=== PATIENT | female | born 1970 | race Caucasian/White ===

== ENCOUNTER 2020-06-15 11:00 | Inpatient (IN) | payer MEDICAID, OTHER ==
[~2020-06-15] VITALS: Ht 165.1 cm; Wt 82.1 kg
[2020-06-15] VITALS (17 sets, daily range): BP systolic 94–156; BP diastolic 48–80
[~2020-06-15 11:00] MED LIST: ALPR1TAB6 PO; ATOR40TA PO; HYDR-2769 PO; METH10TA2 PO
[2020-06-15] MEDS ORDERED: IV NORMAL SALINE 1000ML BAG 1,000 ML IV SCH (11:30)
[2020-06-15] MEDS ORDERED: ONDANSETRON PF 4 MG/2 ML VIAL. IVP ONE (11:30)
[2020-06-15] MEDS ORDERED: fentaNYL PF VIAL 100 MCG/2 ML VIAL IVP ONE ×2 (11:30→13:15)
--- NOTE | 2020-06-15 11:54 | PHYS DOC ---
Past Medical History Past Medical History: Other Additional Past Medical Histor: CHRONIC BACK PAIN (DIMITRI TORREZJanusz James APPLICATION PACKAGER) Past Surgical History: , Hysterectomy, Other Additional Past Surgical Histo: BLADDER LIFT (DIMITRI TORREZJanusz James APPLICATION PACKAGER) Smoking Status: Current Every Day Smoker Alcohol Use: None Drug Use: None (ELAINE TORREZ Erika APPLICATION PACKAGER) General Adult EDM: Chief Complaint: DEHYDRATION HPI: HPI: Patient is a 49 year old female who presents with 2 days of mottling to bilateral knees, upper and inner thigh redness that is tender, abdominal redness that is tender, redness to the right breast with what may be a abscess with cellulitis, shortness of breath, generalized pain, abdominal pain, vomiting. She rates her pain aching 10 out of 10. Patient's daughter brought her here but then has appeared to leave. Patient is refusing a IV in the neck and refusing a Covid test. Patient's hands and feet are cold. Her hands appear to be dirty. I asked her if she was homeless and she states no she states that she lives with one of her daughters. Patient denies fever, diarrhea, chest pain, syncope, back pain, cough, nasal congestion, headache, vision change, focal weakness. 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 She states she takes a baby aspirin a day. Patient is very tearful and moaning in the room. She is yelling for her daughter. (DIMITRI TORREZJanusz James APPLICATION PACKAGER) Review of Systems: Review of Systems: Constitutional: Denies fever or chills. [] Eyes: Denies change in visual acuity. [] HENT: Denies nasal congestion or sore throat. [] Respiratory: Denies cough. + shortness of breath. [] Cardiovascular: Denies chest pain. + edema. [] GI: +Generalized abdominal pain, +nausea, +vomiting, denies bloody stools or diarrhea. [] : Denies dysuria. [] Musculoskeletal: Denies back pain or joint pain. +Generalized[] Integument: Denies rash. +Abdomen cellulitis, +mottling [] Neurologic: Denies headache, focal weakness or sensory changes. +Dizziness [] Endocrine: Denies polyuria or polydipsia. [] Lymphatic: Denies swollen glands. [] Psychiatric: Denies depression or anxiety. [] (ELAINE TORREZ APRN) Heart Score: Risk Factors: Risk Factors: DM, Current or recent (<one month) smoker, HTN, HLP, family history of CAD, obesity. Risk Scores: Score 0 - 3: 2.5% MACE over next 6 weeks - Discharge Home Score 4 - 6: 20.3% MACE over next 6 weeks - Admit for Clinical Observation Score 7 - 10: 72.7% MACE over next 6 weeks - Early Invasive Strategies (ELAINE TORREZ APRN) Allergies: Allergies: Allergies Coded Allergies Type Severity Reaction Last Updated Verified Penicillins Allergy Intermediate rash 02/06/14 No (ELAINE TORREZ APRN) Physical Exam: PE: Constitutional: Well developed, well nourished, no acute distress, non-toxic appearance. [] HENT: Normocephalic, atraumatic, bilateral external ears normal, oropharynx moist, no oral exudates, nose normal. [] Eyes: PERRLA, EOMI, conjunctiva normal, no discharge. [] Neck: Normal range of motion, no tenderness, supple, no stridor. [] Cardiovascular:Heart rate tachy regular rhythm, no murmur [] Lungs & Thorax: Bilateral upper breath sounds clear and lower diminished to auscultation [] Abdomen: Bowel sounds normal, soft, generalized tenderness, no masses, no pulsatile masses. [] Skin: Warm, dry, Right breast, generalized abdomen erythema, no rash. Mottled knees bilaterally. [] Back: No tenderness, no CVA tenderness. [] Extremities: generalised tenderness, fingers, feet cyanosis, no clubbing, ROM intact, bilateral lower 2+ edema. [] Neurologic: Alert and oriented X 3, normal motor function, normal sensory function, no focal deficits noted. [] Psychologic: Affect normal, judgement normal, mood normal. [] (ELAINE TORREZ APRN) EKG: EK and read by Dr Dao as sinus tachycardia and no STEMI[] (ELAINE TORREZ APRN) Radiology/Procedures: Radiology/Procedures: [] Impression: [facility] [address] [place] [address] IMAGING REPORT Signed PATIENT: BRAXTON ANTHONY GACCOUNT: [id number] : 1970 LOCATION: ER AGE: 49 SEX: F EXAM STATUS: REG ER ORD. PHYSICIAN: ELAINE TORREZ APRN REASON: pain, soa PROCEDURE: PORTABLE CHEST 1V XR CHEST 1V History: Reason: pain, soa / Spl. Instructions: / History: Comparison: February 06, 2014 Findings: Enlarged cardiac size, increased compared to 2013. Small left pleural effusion. Ill-defined mid and bibasilar opacities. No pneumothorax. Left-sided ICD noted. Impression: 1. Ill-defined bilateral opacities, may represent pulmonary edema or infection including viral pneumonia. 2. Small left pleural effusion. 3. Enlarged cardiac size, may indicate cardiomegaly and/or pericardial effusion. Electronically signed by: Indra Wheat DO (06/15/2020 1:48 PM) [id number] DICTATED and SIGNED BY: INDRA WHEAT DO DATE: 06/15/20 [id number] [address] [address] IMAGING REPORT Signed PATIENT: BRAXTON ANTHONYCOUNT: [id number] : 1970 LOCATION: ER AGE: 49 SEX: F EXAM STATUS: REG ER ORD. PHYSICIAN: ELAINE TORREZ APRN REASON: vomiting PROCEDURE: CT ABDOMEN PELVIS WO CONTRAST INDICATION: Reason: vomiting / Spl. Instructions: WO CONTRAST PER LORE LOPEZ DUE TO GFR 43 / History: . COMPARISON: None. TECHNIQUE: Axial CT images obtained through the abdomen and pelvis without contrast. One or more of the following individualized dose reduction techniques were utilized for this examination: 1. Automated exposure control; 2. Adjustment of the mA and/or kV according to patient size; 3. Use of iterative reconstruction technique. FINDINGS: Patchy opacities at the partially visualized lung bases. There are some groundglass opacities at the lung bases. Heart is enlarged. There is small pericardial effusion. Trace pleural effusions. There is a catheter within the right common iliac vein. Edema throughout the soft tissues. No intrahepatic bile duct dilation. Postcholecystectomy changes. Limited evaluation of pancreas without contrast. Low-density thickening of the left adrenal gland measuring up to about 25 mm. Causes such as hyperplasia or adenoma could have this appearance. No left-sided hydronephrosis. No right-sided hydronephrosis. The urinary bladder is largely decompressed. There is distention throughout the colon. Colon has a tortuous appearance. Edema throughout soft tissues. Degenerative changes throughout the spine with multilevel central canal and neural foraminal stenosis. IMPRESSION: * There is some dilatation of the colon seen. Would correlate with symptoms to ensure that this is not pathologic in nature from causes such as colonic ileus. * Diffuse edema to the soft tissues. * At the lung bases there is patchy opacity seen. Would correlate with symptoms given that both causes such as pulmonary edema as well as infection could have this appearance including from atypical or viral organisms as well as bacterial. * Enlarged heart. Electronically signed by: Isac Urbina MD (06/15/2020 2:34 PM) [id number] DICTATED and SIGNED BY: ISAC URBINA MD DATE: 06/15/20 [id number] (ELAINE TORREZ APRN) Radiology/Procedures: Central Venous Line Placement: Indication: Vascular access Consent: The patient's daughter provided consent for this procedure. Procedure: The patient was positioned appropriately and the skin over the right femoral vein area was prepped and draped in a sterile fashion. Local anesthesia was used. Ultrasound guidance utilized. A large bore needle was used to identify the vein. A guide wire was then inserted into the vein through the needle. A triple lumen catheter was then inserted into the vessel over the guide wire using the Seldinger technique. All ports showed good, free flowing blood return and were flushed with saline solution. The catheter was then securely fastened to the skin with sutures and covered with a sterile dressing. The patient tolerated the procedure well. Complications: none. [] Intubation Procedure: Indication: Respiratory failure Consent: Unable to give consent due to emergent nature. Medications Used: see nursing note Procedure: The patient was placed in the appropriate position. Intubation was performed by this physician, using Glidescope, cord visual, ET # 7.5. ET tube secured at 22 by the lip. Initial confirmation of placement included bilateral breath sounds, tube fogging, adequate chest rise, adequate pulse oximetry reading. A chest x-ray to verify correct placement of the tube showed appropriate tube position. The patient tolerated the procedure well. Complications: none. (ADRIAN DAO DO) Course & Med Decision Making: Course & Med Decision Making Pertinent Labs and Imaging studies reviewed. (See chart for details) COVID-19 CRITERIA: The patient was evaluated during the global COVID-19 pandemic, and that diagnosis was suspected/considered upon their initial presentation. Their evaluation, treatment and testing was consistent with current guidelines for patients who present with complaints or symptoms that may be related to COVID-19. I have spoken to the patient's daughter who states that she has been in retirement for the last 4 years so she does not know very much about what is going on with her mother. She states that she knows that she has a bad liver in her kidney function is not good. She states the patient was on hospice a year ago for CHF but has not been on hospice for a year. She states that the patient was a DNR but she does not want the patient to be a DNR. I have asked the patient and the patient states that she wants to be a full code. Patient's lactic acid is 4.7. Bands present. Dr. Dao is going into the room to put in a central line. I have ordered Levophed. Patient is about to start her second liter of fluids. I have ordered Levaquin. Patient is allergic to penicillins. Patient's heart rate remains in the 120s. Her oxygenation saturation is not picking up as her fingers are cyanotic. Patient is on 2 L of oxygen. After getting ABG results patient is intubated. Patient admitted to Dr. Vila. I spoken to Dr. Vila who states to call anesthesia to get a arterial line so we can get a accurate pressure. See HPI. Patient is very anxious and agitated. Patient's fingers and her lips appear to be a purple color. Lungs are clear in upper lobes but diminished in lower lobes. Abdomen is soft but very tender. Patient is yellow in color. Patient has bilateral lower edema 2+. Patient also has blueness to the bottom of her feet. Patient has a egg sized lump to the right breast that is soft. Patient is tender all over generalized. Patient is unable to get out of the wheelchair on her own. Alert and oriented x4. Speaks in full complete sentences. Patient is hypotensive and tachycardic. Dr Dao has been into see the patient. Chest xray:Impression: 1. Ill-defined bilateral opacities, may represent pulmonary edema or infection including viral pneumonia. 2. Small left pleural effusion. 3. Enlarged cardiac size, may indicate cardiomegaly and/or pericardial effusion. IMPRESSION: * There is some dilatation of the colon seen. Would correlate with symptoms to ensure that this is not pathologic in nature from causes such as colonic ileus. * Diffuse edema to the soft tissues. * At the lung bases there is patchy opacity seen. Would correlate with symptoms given that both causes such as pulmonary edema as well as infection could have this appearance including from atypical or viral organisms as well as bacterial. * Enlarged heart. Electronically signed by: Isac Urbina MD (06/15/2020 2:34 PM) [id number] [] (ELAINE TORREZ APRN) Course & Med Decision Making Critical care time was [45] minutes which includes time at bedside, spent in discussion of patient's care with specialist and/or family members, with interpretation of laboratory and/or radiological studies and is exclusive of procedures. (ADRIAN DAO DO) Dragon Disclaimer: Dragcorey Disclaimer: This electronic medical record was generated, in whole or in part, using a voice recognition dictation system. (LEAINE TORREZ APRN) Departure Departure Impression: Primary Impression: Pneumonia Qualified Codes: J18.9 - Pneumonia, unspecified organism Additional Impressions: Person under investigation for COVID-19 Ileus Severe sepsis UTI (urinary tract infection) Disposition: 09 ADMITTED INPT THIS HOSP Admitting Physician: PARK (ELAINE TORREZ APRN) Condition: CRITICAL Referrals: NO PCP (PCP) ELAINE TORREZ APRN Jun 15, 2020 11:54 ADRIAN DAO DO Jun 15, 2020 14:54
[2020-06-15 11:55] LABS: BASO % 0 % (0-3); EOS # 0.2 x10^3/uL (0.0-0.7); EOS % 2 % (0-3); HEMATOCRIT 46.8 % (36.0-47.0); HEMOGLOBIN 14.9 g/dL (12.0-15.5); LYMPH # 0.2 x10^3/uL (1.0-4.8); LYMPH % 2 % (24-48); MEAN CORPUSCULAR HEMOGLOBIN 30 pg (25-35); MEAN CORPUSCULAR HGB CONC 32 g/dL (31-37); MEAN CORPUSCULAR VOLUME 94 fL (79-100); MONO # 0.2 x10^3/uL (0.0-1.1); MONO % 2 % (0-9); NEUT # 10.6 x10^3/uL (1.8-7.7); NEUT % 95 % (31-73); PLATELET COUNT 203 x10^3/uL (140-400); RED CELL DISTRIBUTION WIDTH 17.4 % (11.5-14.5); WHITE BLOOD COUNT 11.2 x10^3/uL (4.0-11.0)
[2020-06-15 12:03] LABS: CALCIUM 8.2 mg/dL (8.5-10.1); CREATININE 1.3 mg/dL (0.6-1.0); GFR 43.7; POTASSIUM 3.7 mmol/L (3.5-5.1)
[2020-06-15 12:09] LABS: ALBUMIN/GLOBULIN RATIO 0.4 (1.0-1.7); MAGNESIUM 1.8 mg/dL (1.8-2.4); TOTAL BILIRUBIN 4.4 mg/dL (0.2-1.0); TOTAL PROTEIN 6.9 g/dL (6.4-8.2)
[2020-06-15 12:10] LABS: PROTHROMBIN TIME PATIENT 24.5 SEC (11.7-14.0)
[2020-06-15 12:15] LABS: BILIRUBIN,URINE MODERATE (NEG); CLARITY,URINE CLOUDY; COLOR,URINE ORANGE; NITRITE,URINE NEGATIVE (NEG); PH,URINE 5.5 (<5.0-8.0); PROTEIN,URINE 100 mg/dL (NEG-TRACE)
[2020-06-15 12:29] LABS: RBC,URINE FIELD OBSCURED /HPF (0-2); WBC,URINE 20-40 /HPF (0-4)
[2020-06-15 12:30] LABS: BACTERIA,URINE MANY /HPF (0-FEW); HYALINE CASTS, URINE MANY /HPF
[2020-06-15] MEDS ORDERED: NOREPINEPHRINE VIAL 8 MG in IV DEXTROSE 5% 250 ML IV ONE ×2 (12:30→16:00)
[2020-06-15] MEDS ORDERED: IV NORMAL SALINE 1000ML BAG 1,000 ML IV ONE (12:30)
[2020-06-15 12:49] LABS: % BANDS 40 % (0-9); % LYMPHS 5 % (24-48); % SEGS 55 % (35-66)
[2020-06-15 12:50] LABS: PLT ESTIMATE ADEQUATE (ADEQUATE); POLYCHROMASIA PRESENT
[2020-06-15] MEDS ORDERED: LIDOCAINE 1% Multi-Dose 20 ML VIAL. INJ ONE (13:00)
[2020-06-15 13:50] LABS: BASE EXCESS COOX -11 mmol/L (-3-3); HCO3 COOX 19 mmol/L (21-28); METHEMOGLOBIN 0.3 % (0.0-1.9); OXYHEMOGLOBIN 84.2 %; PCO2 COOX 55 mmHg (35-46); PO2 COOX 64 mmHg (75-108); SAT O2 COOX 85 % (92-99)
--- NOTE | 2020-06-15 13:50 | RAD ---
XR CHEST 1V History: Reason: pain, soa / Spl. Instructions: / History: Comparison: February 06, 2014 Findings: Enlarged cardiac size, increased compared to 2013. Small left pleural effusion. Ill-defined mid and b ibasilar opacities. No pneumothorax. Left-sided ICD noted. Impression: 1. Ill-defined bilateral opacities, may represent pulmonary edema or infection including viral pneum onia. 2. Small left pleural effusion. 3. Enlarged cardiac size, may indicate cardiomegaly and/or pericardial effusion. Electronically signed by: Indra Wheat DO (06/15/2020 1:48 PM) [id number]
[2020-06-15] MEDS ORDERED: ETOMIDATE 20 MG/10 ML VIAL. IV ONE ×2 (14:36→17:15)
[2020-06-15] MEDS ORDERED: SUCCINYLCHOLINE 200 MG/10 ML VIAL. ONE (14:36)
--- NOTE | 2020-06-15 14:36 | RAD ---
INDICATION: Reason: vomiting / Spl. Instructions: WO CONTRAST PER [employer]AF[employer] DIRECTOR STRATEGIC ACCOUNT MANAGEMENT DUE TO GFR 43 / History: . COMPARISON: None. TECHNIQUE: Axial CT images obtained through the abdomen and pelvis without contrast. One or more of the following individualized dose reduction techniques were utilized for this examinat ion: 1. Automated exposure control; 2. Adjustment of the mA and/or kV according to patient size; 3 . Use of iterative reconstruction technique. FINDINGS: Patchy opacities at the partially visualized lung bases. There are some groundglass opacities at the lung bases. Heart is enlarged. There is small pericardial effusion. Trace pleural effusions. There is a catheter within the right common iliac vein. Edema throughout the soft tissues. No intrahepatic bile duct dilation. Postcholecystectomy changes. Limited evaluation of pancreas without contrast. Low-density thickening of the left adrenal gland measuring up to about 25 mm. Causes such as hyperpla doretha or adenoma could have this appearance. No left-sided hydronephrosis. No right-sided hydronephrosis. The urinary bladder is largely decompressed. There is distention throughout the colon. Colon has a tortuous appearance. Edema throughout soft tissues. Degenerative changes throughout the spine with multilevel central canal and neural foraminal stenosis . IMPRESSION: * There is some dilatation of the colon seen. Would correlate with symptoms to ensure that this is n ot pathologic in nature from causes such as colonic ileus. * Diffuse edema to the soft tissues. * At the lung bases there is patchy opacity seen. Would correlate with symptoms given that both caus es such as pulmonary edema as well as infection could have this appearance including from atypical or viral organisms as well as bacterial. * Enlarged heart. Electronically signed by: Jose Alberto Gonzalez MD (06/15/2020 2:34 PM) [id number]
--- NOTE | 2020-06-15 14:57 | PDOC1 ---
History and Physical Date of Admission Date of Admission DATE: 06/15/20 TIME: 15:01 Identification/Chief Complaint Chief Complaint Shortness of breath Source Source: Caregiver, Chart review History of Present Illness History of Present Illness Ms Sheth is a 49 year old female w/ PMHx CVA (left-sided residual deficits), chronic back pain, HTN, systolic CHF s/p AICD placement, cirrhosis who presents via private vehicle with her daughter with 2 days of mottling to bilateral knees, upper and inner thigh as well as nausea and vomiting, fatigue, and lethargy redness. She was also noted with rash on her abdomen and under right breast. She rated her pain 10 out of 10, was in significant respiratory distress while initial ED H&P was being taken. Patient told ED she lives with one of her daughters, but not the daughter who brought her here. She also noted that a year ago she was on hospice for her CHF but after AICD placement and improved and has since been off hospice. She follows with [facility]. Chest radiograph with bilateral opacities and left-sided AICD noted. CT abdomen with dilatation of the colon, diffuse edema to the soft tissues, cardiomegaly and at the lung bases there is patchy opacity seen. EKG sinus tachycardia with incomplete left bundle branch block right axis deviation Initial vital signs temperature 97.5 F heart rate 122 bpm blood pressure 90/64 respiratory rate 27. She continued to tire out throughout interview and had worsening confusion. An ABG was performed showing pH 7.15 PCO2 55 and PaO2 of 64 due to her progressive respiratory distress decision to intubate after informed consent from patient and daughter. Right femoral central line placed emergently. WBC 11.2, Hb 14.9, platelets 203, NA 135, K3.7, BUN 36, CR 1.3, glucose 60 bilirubin 4.4, AST 220, ALT 131, alk phos 412, albumin 2, lipase 14, troponin 0, rapid COVID-19 negative, urinalysis with moderate blood. Admitted to ICU for further care. Past Medical History Cardiovascular: CHF, HTN CENTRAL NERVOUS SYSTEM: CVA Past Surgical History Past Surgical History: Pacemaker, Cholecystectomy, Family History Family History: Family History Unknown Social History Smoke: 1 pack per day ALCOHOL: none Drugs: None Current Problem List Problem List Problems Medical Problems: (1) Ileus Status: Acute (2) Person under investigation for COVID-19 Status: Acute (3) Pneumonia Status: Acute (4) Sepsis Status: Acute (5) Severe sepsis Status: Acute (6) UTI (urinary tract infection) Status: Acute Current Medications Current Medications Current Medications Sodium Chloride 1,000 ml @ 1,000 mls/hr Q1H IV Last administered on 06/15/20at 12:39; Start 06/15/20 at 11:30; Stop 06/15/20 at 12:29; Status DC Fentanyl Citrate (Fentanyl 2ml Vial) 50 mcg 1X ONCE IVP Last administered on 06/15/20at 12:37; Start 06/15/20 at 11:30; Stop 06/15/20 at 11:35; Status DC Ondansetron HCl (Zofran) 4 mg 1X ONCE IVP Last administered on 06/15/20at 12:37; Start 06/15/20 at 11:30; Stop 06/15/20 at 11:35; Status DC Norepinephrine Bitartrate 8 mg/ Dextrose 258 ml @ 13.545 mls/ hr 1X ONCE IV Last administered on 06/15/20at 12:41; Start 06/15/20 at 12:30; Stop 06/16/20 at 07:32 Levofloxacin/ Dextrose 150 ml @ 100 mls/hr 1X ONCE IV Last administered on 06/15/20at 13:23; Start 06/15/20 at 12:30; Stop 06/15/20 at 13:59; Status DC Sodium Chloride 1,000 ml @ 1,000 mls/hr 1X ONCE IV Last administered on 06/15/20at 12:39; Start 06/15/20 at 12:30; Stop 06/15/20 at 13:29; Status DC Lidocaine HCl (Lidocaine 1% 20ml Vial) 20 ml 1X ONCE INJ ; Start 06/15/20 at 13:00; Stop 06/15/20 at 13:01; Status DC Fentanyl Citrate (Fentanyl 2ml Vial) 50 mcg 1X ONCE IVP Last administered on 06/15/20at 13:15; Start 06/15/20 at 13:15; Stop 06/15/20 at 14:01; Status DC Etomidate (Amidate) 20 mg STK-MED ONCE IV ; Start 06/15/20 at 14:36; Stop 06/15/20 at 14:36; Status DC Succinylcholine Chloride (Anectine) 200 mg STK-MED ONCE .ROUTE ; Start 06/15/20 at 14:36; Stop 06/15/20 at 14:36; Status DC Active Scripts Active Reported Hydrocodone-Apap 10-325 (Hydrocodone Bit/Acetaminophen) 1 Each Tablet 3 Tab PO Q3-4HRS PRN Alprazolam 1 Mg Tablet 1 Tab PO BID Methadone Hcl 10 Mg Tablet 10 Mg PO PRN PRN Lipitor (Atorvastatin Calcium) 40 Mg Tablet 1 Tab PO QHS Allergies Allergies: Coded Allergies: Penicillins (Unverified Allergy, Intermediate, rash, 02/06/14) ROS Review of System Unable to obtain, patient intubated Physical Exam General: moderate distress HEENT: Atraumatic, PERRLA, EOMI, Mucous membr. moist/pink Lungs: Other (Bibasilar crackles) Heart: S1S2, RRR, no thrills, no rubs, no gallops, no murmurs Abdomen: Normal bowel sounds, Other (Positive fluid wave, ecchmoses) Rectal Exam: other (Gluteal abscess) Extremities: Other Skin: Other (mottling on hands and feet bilaterally. Bilateral breasts red, swollen) Neuro: Normal tone, Cranial nerves 3-12 NL Vitals Vitals Vital Signs Date Time Temp Pulse Resp B/P (MAP) Pulse Ox O2 Delivery O2 Flow Rate FiO2 06/15/20 13:45 138 18 06/15/20 13:15 97 Room Air 06/15/20 11:00 97.5 90/64 (73) 97.5 Labs Labs Laboratory Tests Test 06/15/20 11:40 06/15/20 12:00 06/15/20 12:23 06/15/20 13:40 White Blood Count 11.2 x10^3/uL (4.0-11.0) Red Blood Count 5.00 x10^6/uL (3.50-5.40) Hemoglobin 14.9 g/dL (12.0-15.5) Hematocrit 46.8 % (36.0-47.0) Mean Corpuscular Volume 94 fL (79-100) Mean Corpuscular Hemoglobin 30 pg (25-35) Mean Corpuscular Hemoglobin Concent 32 g/dL (31-37) Red Cell Distribution Width 17.4 % (11.5-14.5) Platelet Count 203 x10^3/uL (140-400) Neutrophils (%) (Auto) 95 % (31-73) Lymphocytes (%) (Auto) 2 % (24-48) Monocytes (%) (Auto) 2 % (0-9) Eosinophils (%) (Auto) 2 % (0-3) Basophils (%) (Auto) 0 % (0-3) Neutrophils # (Auto) 10.6 x10^3/uL (1.8-7.7) Lymphocytes # (Auto) 0.2 x10^3/uL (1.0-4.8) Monocytes # (Auto) 0.2 x10^3/uL (0.0-1.1) Eosinophils # (Auto) 0.2 x10^3/uL (0.0-0.7) Basophils # (Auto) 0.0 x10^3/uL (0.0-0.2) Segmented Neutrophils % 55 % (35-66) Band Neutrophils % 40 % (0-9) Lymphocytes % 5 % (24-48) Platelet Estimate Adequate (ADEQUATE) Giant Platelets Present Polychromasia Present Prothrombin Time 24.5 SEC (11.7-14.0) Prothromb Time International Ratio 2.2 (0.8-1.1) Sodium Level 135 mmol/L (136-145) Potassium Level 3.7 mmol/L (3.5-5.1) Chloride Level 97 mmol/L (98-107) Carbon Dioxide Level 24 mmol/L (21-32) Anion Gap 14 (6-14) Blood Urea Nitrogen 36 mg/dL (7-20) Creatinine 1.3 mg/dL (0.6-1.0) Estimated GFR (Cockcroft-Gault) 43.7 BUN/Creatinine Ratio 28 (6-20) Glucose Level 60 mg/dL (70-99) Lactic Acid Level 4.7 mmol/L (0.4-2.0) Calcium Level 8.2 mg/dL (8.5-10.1) Magnesium Level 1.8 mg/dL (1.8-2.4) Total Bilirubin 4.4 mg/dL (0.2-1.0) Aspartate Amino Transf (AST/SGOT) 220 U/L (15-37) Alanine Aminotransferase (ALT/SGPT) 131 U/L (14-59) Alkaline Phosphatase 412 U/L (46-116) Ammonia < 10 mcmol/L (11-34) Troponin I Quantitative < 0.017 ng/mL (0.000-0.055) Total Protein 6.9 g/dL (6.4-8.2) Albumin 2.0 g/dL (3.4-5.0) Albumin/Globulin Ratio 0.4 (1.0-1.7) Lipase 14 U/L (73-393) Urine Collection Type Unknown Urine Color [place] Urine Clarity Cloudy Urine pH 5.5 (<5.0-8.0) Urine Specific [place] 1.025 (1.000-1.030) Urine Protein 100 mg/dL (NEG-TRACE) Urine Glucose (UA) Negative mg/dL (NEG) Urine Ketones (Stick) Trace mg/dL (NEG) Urine Blood Moderate (NEG) Urine Nitrite Negative (NEG) Urine Bilirubin Moderate (NEG) Urine Urobilinogen Dipstick 2.0 mg/dL (0.2 mg/dL) Urine Leukocyte Esterase Moderate (NEG) Urine RBC Field obscured /HPF (0-2) Urine WBC 20-40 /HPF (0-4) Urine Squamous Epithelial Cells Many /LPF Urine Bacteria Many /HPF (0-FEW) Urine Hyaline Casts Many /HPF Urine Mucus Mod /LPF SARS-CoV-2 Antigen (Rapid) Negative (NEGATIVE) O2 Saturation 85 % (92-99) Arterial Blood pH 7.15 (7.35-7.45) Arterial Blood pCO2 at Patient Temp 55 mmHg (35-46) Arterial Blood pO2 at Patient Temp 64 mmHg (75-108) Arterial Blood HCO3 19 mmol/L (21-28) Arterial Blood Base Excess -11 mmol/L (-3-3) Oxyhemoglobin 84.2 % Methemoglobin 0.3 % (0.0-1.9) Carbon Monoxide, Quantitative 0.9 % (0.0-1.9) FiO2 3 lpm or Laboratory Tests Test 06/15/20 11:40 06/15/20 12:00 06/15/20 12:23 06/15/20 13:40 White Blood Count 11.2 x10^3/uL (4.0-11.0) Red Blood Count 5.00 x10^6/uL (3.50-5.40) Hemoglobin 14.9 g/dL (12.0-15.5) Hematocrit 46.8 % (36.0-47.0) Mean Corpuscular Volume 94 fL (79-100) Mean Corpuscular Hemoglobin 30 pg (25-35) Mean Corpuscular Hemoglobin Concent 32 g/dL (31-37) Red Cell Distribution Width 17.4 % (11.5-14.5) Platelet Count 203 x10^3/uL (140-400) Neutrophils (%) (Auto) 95 % (31-73) Lymphocytes (%) (Auto) 2 % (24-48) Monocytes (%) (Auto) 2 % (0-9) Eosinophils (%) (Auto) 2 % (0-3) Basophils (%) (Auto) 0 % (0-3) Neutrophils # (Auto) 10.6 x10^3/uL (1.8-7.7) Lymphocytes # (Auto) 0.2 x10^3/uL (1.0-4.8) Monocytes # (Auto) 0.2 x10^3/uL (0.0-1.1) Eosinophils # (Auto) 0.2 x10^3/uL (0.0-0.7) Basophils # (Auto) 0.0 x10^3/uL (0.0-0.2) Segmented Neutrophils % 55 % (35-66) Band Neutrophils % 40 % (0-9) Lymphocytes % 5 % (24-48) Platelet Estimate Adequate (ADEQUATE) Giant Platelets Present Polychromasia Present Prothrombin Time 24.5 SEC (11.7-14.0) Prothromb Time International Ratio 2.2 (0.8-1.1) Sodium Level 135 mmol/L (136-145) Potassium Level 3.7 mmol/L (3.5-5.1) Chloride Level 97 mmol/L (98-107) Carbon Dioxide Level 24 mmol/L (21-32) Anion Gap 14 (6-14) Blood Urea Nitrogen 36 mg/dL (7-20) Creatinine 1.3 mg/dL (0.6-1.0) Estimated GFR (Cockcroft-Gault) 43.7 BUN/Creatinine Ratio 28 (6-20) Glucose Level 60 mg/dL (70-99) Lactic Acid Level 4.7 mmol/L (0.4-2.0) Calcium Level 8.2 mg/dL (8.5-10.1) Magnesium Level 1.8 mg/dL (1.8-2.4) Total Bilirubin 4.4 mg/dL (0.2-1.0) Aspartate Amino Transf (AST/SGOT) 220 U/L (15-37) Alanine Aminotransferase (ALT/SGPT) 131 U/L (14-59) Alkaline Phosphatase 412 U/L (46-116) Ammonia < 10 mcmol/L (11-34) Troponin I Quantitative < 0.017 ng/mL (0.000-0.055) Total Protein 6.9 g/dL (6.4-8.2) Albumin 2.0 g/dL (3.4-5.0) Albumin/Globulin Ratio 0.4 (1.0-1.7) Lipase 14 U/L (73-393) Urine Collection Type Unknown Urine Color [place] Urine Clarity Cloudy Urine pH 5.5 (<5.0-8.0) Urine Specific [place] 1.025 (1.000-1.030) Urine Protein 100 mg/dL (NEG-TRACE) Urine Glucose (UA) Negative mg/dL (NEG) Urine Ketones (Stick) Trace mg/dL (NEG) Urine Blood Moderate (NEG) Urine Nitrite Negative (NEG) Urine Bilirubin Moderate (NEG) Urine Urobilinogen Dipstick 2.0 mg/dL (0.2 mg/dL) Urine Leukocyte Esterase Moderate (NEG) Urine RBC Field obscured /HPF (0-2) Urine WBC 20-40 /HPF (0-4) Urine Squamous Epithelial Cells Many /LPF Urine Bacteria Many /HPF (0-FEW) Urine Hyaline Casts Many /HPF Urine Mucus Mod /LPF SARS-CoV-2 Antigen (Rapid) Negative (NEGATIVE) O2 Saturation 85 % (92-99) Arterial Blood pH 7.15 (7.35-7.45) Arterial Blood pCO2 at Patient Temp 55 mmHg (35-46) Arterial Blood pO2 at Patient Temp 64 mmHg (75-108) Arterial Blood HCO3 19 mmol/L (21-28) Arterial Blood Base Excess -11 mmol/L (-3-3) Oxyhemoglobin 84.2 % Methemoglobin 0.3 % (0.0-1.9) Carbon Monoxide, Quantitative 0.9 % (0.0-1.9) FiO2 3 lpm nc Images Images Chest radiograph: Enlarged cardiac size, increased compared to 2014. Small left pleural effusion. Ill-defined mid and bibasilar opacities. No pneumothorax. Left-sided ICD noted. Impression: 1. Ill-defined bilateral opacities, may represent pulmonary edema or infection including viral pneumonia. 2. Small left pleural effusion. 3. Enlarged cardiac size, may indicate cardiomegaly and/or pericardial effusion . CT abdomen/pelvis: Patchy opacities at the partially visualized lung bases. There are some groundglass opacities at the lung bases. Heart is enlarged. There is small pericardial effusion. Trace pleural effusions. There is a catheter within the right common iliac vein. Edema throughout the soft tissues. No intrahepatic bile duct dilation. Postcholecystectomy changes. Limited evaluation of pancreas without contrast. Low-density thickening of the left adrenal gland measuring up to about 25 mm. Causes such as hyperplasia or adenoma could have this appearance. No left-sided hydronephrosis. No right-sided hydronephrosis. The urinary bladder is largely decompressed. There is distention throughout the colon. Colon has a tortuous appearance. Edema throughout soft tissues. Degenerative changes throughout the spine with multilevel central canal and neural foraminal stenosis. IMPRESSION: * There is some dilatation of the colon seen. Would correlate with symptoms to ensure that this is not pathologic in nature from causes such as colonic ileus. * Diffuse edema to the soft tissues. * At the lung bases there is patchy opacity seen. Would correlate with symptoms given that both causes such as pulmonary edema as well as infection could have this appearance including from atypical or viral organisms as well as bacterial. * Enlarged heart. VTE Prophylaxis Ordered VTE Prophylaxis Devices: No VTE Pharmacological Prophylaxi: Yes Assessment/Plan Assessment/Plan A/P: Acute respiratory failure with hypercapnia and hypoxia - likely related to sep sis possibly from likely gram negative pneumonia. Will cont vent support, consult pulm. Wean as tolerated Septic shock - not responsive to fluid bolus, initiated on pressors. Likely from cellulitis, started on levaquin, will add vancomycin LARISSA - likely vasomotor nephropathy - no renal disease per family, normal Cr 4 years ago here. Given weight based bolus of normal saline, but with h/o CHF with unknown EF currently will be judicious about fluids Metabolic acidosis - due to lactic acidosis likely from septic shock and hypoxemia. Will monitor Cirrhosis with Transaminitis - possibly some mild shock liver with sepsis. Does have h/o cirrhosis, details are unknown H/o CVA (left-sided residual deficits), chronic back pain, HTN Systolic CHF s/p AICD placement - unknown EF - on metoprolol Bumex 2 mg twice daily Eliquis Aldactone ASA. Has [facility] f/u outpatient Amphetamine positive UDS - with concerning needles burt in multiple locations Gluteal abscess - will continue vancomycin, wound care, ID consult Chronic pain - on methadone outpatient apparently FEN - NPO PPX - Eliquis. Will place on lovenox for now FULL CODE Dispo - inpatient ICU CC time 47 minutes Justifications for Admission Other Justification ANAT STEPHENS MD Jun 15, 2020 14:57
--- NOTE | 2020-06-15 15:03 | RAD ---
Chest AP portable 06/15/2020. Reason for exam: Intubation. Comparison is made with a study done earlier in the day. An ETT is now present with its tip about 4 cm above the bala. An NG tube reaches the stomach. There is still diffuse haziness in the lungs. The heart remains enlarged. A pacer device is still seen. IMPRESSION: Placement of ET and NG without apparent complication. Electronically signed by: Ronnie Gipson Jr., MD (06/15/2020 3:01 PM) [id number]
[2020-06-15 16:04] LABS: BASE EXCESS ABG -13 mmol/L (-3-3); HCO3 ABG 15 mmol/L (21-28); PCO2 ABG 38 mmHg (35-46); PO2 ABG 408 mmHg (75-108); SAT O2 ABG 100 % (92-99)
[2020-06-15 16:06] LABS: FIO2 ABG 100
[2020-06-15] MEDS ORDERED: PHENYLEPHRINE INJ 50 MG in IV NORMAL SALINE 250ML 250 ML IV PRN (16:15)
[2020-06-15] MEDS: ACETAMINOPHEN 650 MG/20.3 ML SOLUTION. PEG PRN ×2 (17:00→22:43)
[2020-06-15] MEDS ORDERED: SODIUM BICARB ADULT 8.4% 50 MEQ/50 ML DISP.SYRIN. ONE (17:01)
[2020-06-15] MEDS: VASOPRESSIN 20 UNIT in IV DEXTROSE 5% 100ML 100 ML IV PRN ×2 (17:05→23:44)
[2020-06-15] MEDS: MIDAZOLAM 100mg/100ml NS BAG 100 ML IV PRN (17:06)
[2020-06-15] MEDS ORDERED: SUCCINYLCHOLINE 200 MG/10 ML VIAL. IV ONE (17:15)
[2020-06-15] MEDS ORDERED: ROCURONIUM 50 MG/5 ML VIAL. IV ONE (17:15)
[2020-06-15 17:20] LABS: AMPHETAMINE/METHAMPHETAMINE POS (NEG); BARBITURATES NEG (NEG); BENZODIAZEPINES NEG (NEG); CANNABINOIDS NEG (NEG); COCAINE NEG (NEG); METHADONE NEG (NEG); OPIATES POS (NEG); PHENCYCLIDINE NEG (NEG)
[2020-06-15] MEDS ORDERED: SODIUM BICARB ADULT 8.4% 50 MEQ/50 ML DISP.SYRIN. IV ONE (17:30)
[2020-06-15] MEDS ORDERED: ALBUMIN HUMAN 5% 500 ML IV PRN (17:30)
--- NOTE | 2020-06-15 17:55 | NUR ---
Pt admitted to room 108 at approx 1640 via [facility] nurse. Pt extremely hemodynamically unstable, levophed + dobutamine gtt maxed out on arrival, tachycardic with HR in 140s. Pt not on sedation when first to ICU, and completely unresponsive- does have pupil response but no cough/gag or withdraw from pain. Severe mottling noted over entire body, worst around abdomen and knees. A lump in posterior side of left breast felt- assuming it is patient's ICD that is seen on XRAY. Also wound on Left buttocks- looks like an abscess possibly with several puncture sites noted- see photo in chart. Pt currently still unstable, but vitals better with meds, see eMAR. Tylenol given for fever of 100.8, blood cultures already drawn, urine drug tox sent- see emr. Dr. Vila called unit, had already seen patient in ER but given update, orders received. Admission completed to best of ability, PMH and other info limited due to patient status. Campbell Waterman, patient's father called- notified of pt status and given HIPPA code.
[2020-06-15] MEDS ORDERED: VANCOMYCIN 1.5 GM in IV NORMAL SALINE 500ML BAG 500 ML IV ONE (18:00)
[2020-06-15] MEDS ORDERED: ONDANSETRON PF 4 MG/2 ML VIAL. IVP PRN (18:00)
[2020-06-15] MEDS ORDERED: DEXTROSE 50% 25 GM / 50ML DISP.SYRIN. IV ONE (21:06)
[2020-06-15] MEDS: DEXTROSE 50% 25 GM / 50ML DISP.SYRIN. IV PRN (21:13)
[2020-06-15] MEDS: NOREPINEPHRINE VIAL 8 MG in IV DEXTROSE 5% 250 ML IV PRN (23:44)
[2020-06-16] VITALS (36 sets, daily range): BP systolic 74–120; BP diastolic 48–68
[2020-06-16] MEDS: DEXTROSE 50% 25 GM / 50ML DISP.SYRIN. IV PRN ×5 (05:43→16:17)
[2020-06-16 06:05] LABS: BASO % 0 % (0-3); EOS # 0.3 x10^3/uL (0.0-0.7); EOS % 2 % (0-3); HEMATOCRIT 36.5 % (36.0-47.0); HEMOGLOBIN 11.4 g/dL (12.0-15.5); LYMPH # 0.4 x10^3/uL (1.0-4.8); LYMPH % 3 % (24-48); MEAN CORPUSCULAR HEMOGLOBIN 30 pg (25-35); MEAN CORPUSCULAR HGB CONC 31 g/dL (31-37); MEAN CORPUSCULAR VOLUME 95 fL (79-100); MONO # 0.5 x10^3/uL (0.0-1.1); MONO % 4 % (0-9); NEUT # 12.5 x10^3/uL (1.8-7.7); NEUT % 91 % (31-73); PLATELET COUNT 139 x10^3/uL (140-400); RED BLOOD COUNT 3.85 x10^6/uL (3.50-5.40); RED CELL DISTRIBUTION WIDTH 18.1 % (11.5-14.5); WHITE BLOOD COUNT 13.7 x10^3/uL (4.0-11.0)
[2020-06-16 06:19] LABS: ALBUMIN 1.7 g/dL (3.4-5.0); ALBUMIN/GLOBULIN RATIO 0.4 (1.0-1.7); CREATININE 1.6 mg/dL (0.6-1.0); GFR 34.4; POTASSIUM 4.8 mmol/L (3.5-5.1); TOTAL BILIRUBIN 4.4 mg/dL (0.2-1.0); TOTAL PROTEIN 5.5 g/dL (6.4-8.2)
[2020-06-16] MEDS: ACETAMINOPHEN 650 MG/20.3 ML SOLUTION. PEG PRN ×2 (07:36→19:16)
[2020-06-16] MEDS ORDERED: VANCOMYCIN PER PHARMACY MC PRN (07:45)
--- NOTE | 2020-06-16 07:52 | NUR ---
Pharmacy Vancomycin Dosing Note S:Consulted to monitor and dose vancomycin started 06/15/20. O:BRAXTON ANTHONY is a 49 year old F with Cellulitis. Height: 5 feet, 5 inches Weight: 81.9 kg [place] Body Weight: 195.00 Adjusted Body Weight: 149.76 Dosing Weight: Other Antibiotics: levaquin LABS: Last BUN: 38 Last Creatinine: 1.6 Creatinine Clearance: 45 mL/min Last WBC: 13.7 Last Procalcitonin: 11.68 Tmax (past 24 hours): 102.7 Microbiology: 06/15: blood cx pending 06/15: urine cx pending I/O: 3845/ 560 Last dose given 06/15/20 at 1800 Vancomycin Dosing: Loading Dose: 1500 mg x1 Dosing Weight: Actual Target Trough: 10-20 A: Based on: patient's age, weight and renal function. P: 1. Begin Vancomycin 1250 mg IV q24h after initial loading dose. 2. Follow up Trough level on 06/17/20 at 1730. 3. Pharmacy will continue to monitor, follow and adjust therapy as needed. NESS RODRÍGUEZ RPH, 06/16/20 0750
[2020-06-16] MEDS: VASOPRESSIN 20 UNIT in IV DEXTROSE 5% 100ML 100 ML IV PRN ×2 (08:15→21:15)
--- NOTE | 2020-06-16 08:22 | PDOC ---
Infectious Disease Note Vital Sign Vital Signs Vital Signs Date Time Temp Pulse Resp B/P (MAP) Pulse Ox O2 Delivery O2 Flow Rate FiO2 06/16/20 06:15 102.7 107 20 99/49 (66) 100 Ventilator 102.7 Labs Lab Laboratory Tests Test 06/15/20 11:40 06/15/20 12:00 06/15/20 12:23 06/15/20 13:40 White Blood Count 11.2 x10^3/uL (4.0-11.0) Red Blood Count 5.00 x10^6/uL (3.50-5.40) Hemoglobin 14.9 g/dL (12.0-15.5) Hematocrit 46.8 % (36.0-47.0) Mean Corpuscular Volume 94 fL (79-100) Mean Corpuscular Hemoglobin 30 pg (25-35) Mean Corpuscular Hemoglobin Concent 32 g/dL (31-37) Red Cell Distribution Width 17.4 % (11.5-14.5) Platelet Count 203 x10^3/uL (140-400) Neutrophils (%) (Auto) 95 % (31-73) Lymphocytes (%) (Auto) 2 % (24-48) Monocytes (%) (Auto) 2 % (0-9) Eosinophils (%) (Auto) 2 % (0-3) Basophils (%) (Auto) 0 % (0-3) Neutrophils # (Auto) 10.6 x10^3/uL (1.8-7.7) Lymphocytes # (Auto) 0.2 x10^3/uL (1.0-4.8) Monocytes # (Auto) 0.2 x10^3/uL (0.0-1.1) Eosinophils # (Auto) 0.2 x10^3/uL (0.0-0.7) Basophils # (Auto) 0.0 x10^3/uL (0.0-0.2) Segmented Neutrophils % 55 % (35-66) Band Neutrophils % 40 % (0-9) Lymphocytes % 5 % (24-48) Platelet Estimate Adequate (ADEQUATE) Giant Platelets Present Polychromasia Present Prothrombin Time 24.5 SEC (11.7-14.0) Prothromb Time International Ratio 2.2 (0.8-1.1) Sodium Level 135 mmol/L (136-145) Potassium Level 3.7 mmol/L (3.5-5.1) Chloride Level 97 mmol/L (98-107) Carbon Dioxide Level 24 mmol/L (21-32) Anion Gap 14 (6-14) Blood Urea Nitrogen 36 mg/dL (7-20) Creatinine 1.3 mg/dL (0.6-1.0) Estimated GFR (Cockcroft-Gault) 43.7 BUN/Creatinine Ratio 28 (6-20) Glucose Level 60 mg/dL (70-99) Lactic Acid Level 4.7 mmol/L (0.4-2.0) Calcium Level 8.2 mg/dL (8.5-10.1) Magnesium Level 1.8 mg/dL (1.8-2.4) Total Bilirubin 4.4 mg/dL (0.2-1.0) Aspartate Amino Transf (AST/SGOT) 220 U/L (15-37) Alanine Aminotransferase (ALT/SGPT) 131 U/L (14-59) Alkaline Phosphatase 412 U/L (46-116) Ammonia < 10 mcmol/L (11-34) Troponin I Quantitative < 0.017 ng/mL (0.000-0.055) Total Protein 6.9 g/dL (6.4-8.2) Albumin 2.0 g/dL (3.4-5.0) Albumin/Globulin Ratio 0.4 (1.0-1.7) Lipase 14 U/L (73-393) Procalcitonin 11.68 ng/mL (0.00-0.10) Urine Collection Type Unknown Urine Color [place] Urine Clarity Cloudy Urine pH 5.5 (<5.0-8.0) Urine Specific [place] 1.025 (1.000-1.030) Urine Protein 100 mg/dL (NEG-TRACE) Urine Glucose (UA) Negative mg/dL (NEG) Urine Ketones (Stick) Trace mg/dL (NEG) Urine Blood Moderate (NEG) Urine Nitrite Negative (NEG) Urine Bilirubin Moderate (NEG) Urine Urobilinogen Dipstick 2.0 mg/dL (0.2 mg/dL) Urine Leukocyte Esterase Moderate (NEG) Urine RBC Field obscured /HPF (0-2) Urine WBC 20-40 /HPF (0-4) Urine Squamous Epithelial Cells Many /LPF Urine Bacteria Many /HPF (0-FEW) Urine Hyaline Casts Many /HPF Urine Mucus Mod /LPF SARS-CoV-2 Antigen (Rapid) Negative (NEGATIVE) O2 Saturation 85 % (92-99) Arterial Blood pH 7.15 (7.35-7.45) Arterial Blood pCO2 at Patient Temp 55 mmHg (35-46) Arterial Blood pO2 at Patient Temp 64 mmHg (75-108) Arterial Blood HCO3 19 mmol/L (21-28) Arterial Blood Base Excess -11 mmol/L (-3-3) Oxyhemoglobin 84.2 % Methemoglobin 0.3 % (0.0-1.9) Carbon Monoxide, Quantitative 0.9 % (0.0-1.9) FiO2 3 lpm nc Test 06/15/20 15:55 06/15/20 16:00 06/15/20 16:55 06/15/20 21:03 Lactic Acid Level 4.2 mmol/L (0.4-2.0) O2 Saturation 100 % (92-99) Arterial Blood pH 7.20 (7.35-7.45) Arterial Blood pCO2 at Patient Temp 38 mmHg (35-46) Arterial Blood pO2 at Patient Temp 408 mmHg (75-108) Arterial Blood HCO3 15 mmol/L (21-28) Arterial Blood Base Excess -13 mmol/L (-3-3) FiO2 100 Urine Opiates Screen Pos (NEG) Urine Methadone Screen Neg (NEG) Urine Barbiturates Neg (NEG) Urine Phencyclidine Screen Neg (NEG) Urine Amphetamine/Methamphetamine Pos (NEG) Urine Benzodiazepines Screen Neg (NEG) Urine Cocaine Screen Neg (NEG) Urine Cannabinoids Screen Neg (NEG) Urine Ethyl Alcohol Neg (NEG) Glucose (Fingerstick) 59 mg/dL (70-99) Test 06/15/20 21:17 06/16/20 00:18 06/16/20 05:30 06/16/20 05:41 Glucose (Fingerstick) 151 mg/dL (70-99) 79 mg/dL (70-99) 64 mg/dL (70-99) 159 mg/dL (70-99) White Blood Count 13.7 x10^3/uL (4.0-11.0) Red Blood Count 3.85 x10^6/uL (3.50-5.40) Hemoglobin 11.4 g/dL (12.0-15.5) Hematocrit 36.5 % (36.0-47.0) Mean Corpuscular Volume 95 fL (79-100) Mean Corpuscular Hemoglobin 30 pg (25-35) Mean Corpuscular Hemoglobin Concent 31 g/dL (31-37) Red Cell Distribution Width 18.1 % (11.5-14.5) Platelet Count 139 x10^3/uL (140-400) Neutrophils (%) (Auto) 91 % (31-73) Lymphocytes (%) (Auto) 3 % (24-48) Monocytes (%) (Auto) 4 % (0-9) Eosinophils (%) (Auto) 2 % (0-3) Basophils (%) (Auto) 0 % (0-3) Neutrophils # (Auto) 12.5 x10^3/uL (1.8-7.7) Lymphocytes # (Auto) 0.4 x10^3/uL (1.0-4.8) Monocytes # (Auto) 0.5 x10^3/uL (0.0-1.1) Eosinophils # (Auto) 0.3 x10^3/uL (0.0-0.7) Basophils # (Auto) 0.0 x10^3/uL (0.0-0.2) Sodium Level 136 mmol/L (136-145) Potassium Level 4.8 mmol/L (3.5-5.1) Chloride Level 104 mmol/L (98-107) Carbon Dioxide Level 17 mmol/L (21-32) Anion Gap 15 (6-14) Blood Urea Nitrogen 38 mg/dL (7-20) Creatinine 1.6 mg/dL (0.6-1.0) Estimated GFR (Cockcroft-Gault) 34.4 BUN/Creatinine Ratio 24 (6-20) Glucose Level 63 mg/dL (70-99) Calcium Level 7.0 mg/dL (8.5-10.1) Total Bilirubin 4.4 mg/dL (0.2-1.0) Aspartate Amino Transf (AST/SGOT) 248 U/L (15-37) Alanine Aminotransferase (ALT/SGPT) 150 U/L (14-59) Alkaline Phosphatase 246 U/L (46-116) Total Protein 5.5 g/dL (6.4-8.2) Albumin 1.7 g/dL (3.4-5.0) Albumin/Globulin Ratio 0.4 (1.0-1.7) Objective Assessment pt seen, consult dictated Plan Plan of Care / CRISTIAN OAKLEY MD Jun 16, 2020 08:22
[2020-06-16] MEDS: NOREPINEPHRINE VIAL 8 MG in IV DEXTROSE 5% 250 ML IV PRN ×3 (08:32→23:03)
[2020-06-16 08:54] LABS: BASE EXCESS ABG -9 mmol/L (-3-3); HCO3 ABG 17 mmol/L (21-28); PCO2 ABG 37 mmHg (35-46); PO2 ABG 89 mmHg (75-108); SAT O2 ABG 96 % (92-99)
[2020-06-16 09:00] LABS: FIO2 ABG 40%/ AC 20 VT 450 PE
--- NOTE | 2020-06-16 09:09 | CONS ---
DATE OF CONSULTATION: 06/16/2020 REQUESTING PHYSICIAN: Antonio Vial MD REASON FOR CONSULTATION: Sepsis. HISTORY OF PRESENT ILLNESS: This is a 49-year-old female who apparently was on hospice with multiple medical problems, but after the AICD was placed then, she got off the hospice. The patient was brought in with 2-day history of mottling of both the knees and redness of the thigh and the abdomen and the breast. It is unclear whether the daughter found her after 2 days or what. The patient was lethargic. The patient had some nausea and vomiting. The patient had appears to be a wound or infection into the left gluteal area and the patient is a very acidotic required intubation. The patient has a fever up to 102.7. White count is up to 13,000, elevated liver function tests, elevated creatinine. Total bilirubin 4.4, albumin 1.7. Her drug screen positive with amphetamine/methamphetamine and opiates. COVID negative and the patient is now admitted to the ICU, requiring vasopressor support and ventilatory support. The patient has been started or given one dose of levofloxacin on vancomycin. PAST MEDICAL HISTORY: Positive for hypertension, CVA, congestive heart failure, status post AICD, has had cholecystectomy, . SOCIAL HISTORY: Continues to smoke, continues to look like drug use. No alcohol use. CURRENT MEDICATIONS: Reviewed. REVIEW OF SYSTEMS: Unable to do since the patient is intubated. PHYSICAL EXAMINATION: GENERAL: Sedated, orally intubated female, not in distress. VITAL SIGNS: Temperature 102.7, pulse 107, respirations 20, blood pressure 99/49. HEENT: Right pupil is dilated and fixed. Left pupil is normal and reacting well. Orally intubated. NECK: Supple, no JVP, no lymphadenopathy. LUNGS: Clear. HEART: S1, S2 regular. No gallop or murmur. ABDOMEN: Soft, nontender, no organomegaly. EXTREMITIES: No edema or cyanosis. The patient does have what appears to be subacute hemorrhage into the breast, abdomen and thigh and there is discoloration on the left gluteal area with even the puncture wounds into that area, these are external hemorrhoids. NEUROLOGIC: The patient is sedated, orally intubated. 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 LABORATORY DATA: White count is 13.7, platelets are 139,000. BUN and creatinine is 38 and 1.6. Total bilirubin is 4.4, AST 248, ALT 150. Urinalysis showed 20-40 wbc's. Cultures are pending. Chest x-ray, ill-defined bilateral opacity, may represent pulmonary edema or infection like pneumonia, small effusion, cardiomegaly. Abdominal CT was not showing any acute changes. IMPRESSION: 1. Fever. 2. Leukocytosis. 3. Hypotension, requiring vasopressor support. 4. Respiratory failure requiring ventilatory support. 5. Acute kidney injury. 6. Elevated liver function tests. 7. Multiorgan system involvement. 8. Discoloration of the skin on the front, there is probably subacute hemorrhage and there is discoloration of the left gluteal area where there are some puncture burt. 9. History of congestive heart failure, has AICD. 10. History of cerebrovascular accident. 11. History of drug use. RECOMMENDATIONS: Recommend discontinue vancomycin, change to daptomycin. Continue Levaquin, add meropenem. Supportive care and we will follow the cultures and continue to follow. Overall, prognosis is poor. Thank you very much, Dr. Vila, for giving me the opportunity to participate in this patient's care. CRISTIAN OAKLEY MD DR: ANGIE/judy JOB#: [id number] / [id number]
[2020-06-16] MEDS: DAPTOmycin (GENERIC) IVPB 400 MG in IV NORMAL SALINE 50ML 50 ML IV SCH (09:18)
[2020-06-16 09:20] LABS: % BANDS 38 % (0-9); % EOS 2 % (0-5); % LYMPHS 2 % (24-48); % METAS 9 % (0-0); % MONOS 4 % (0-10); % MYELOS 4 % (0-0); % SEGS 41 % (35-66); NUCLEATED RBC 1
[2020-06-16 09:21] LABS: ANISOCYTOSIS SLIGHT; PLT ESTIMATE ADEQUATE (ADEQUATE); TOXIC GRANULATION MARKED
--- NOTE | 2020-06-16 10:24 | EKG ---
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
--- NOTE | 2020-06-16 11:15 | PDOC2 ---
CHIKIS JOSÉ WAREHOUSE INSULATION WORKER 06/16/20 1115: CARDIAC CONSULT DATE OF CONSULT Date of Consult DATE: 06/16/20 TIME: 11:08 REASON FOR CONSULT Reason for Consult: Cardiomyopathy, AICD REFERRING PHYSICIAN Referring Physician: Dr. Vargas SOURCE Source: Chart review HISTORY OF PRESENT ILLNESS HISTORY OF PRESENT ILLNESS Patient is a 49 year old female who presents multiple complaints including 2 days of mottling to bilateral knees, upper and inner thigh redness, abdominal redness, and redness to the right breast. Has also been short of breath and complains of generalized pain and nausea/vomiting. Has a history of severe non- ischemic cardiomyopathy due to longstanding history of meth use. Has followed with heart failure clinic. Well documented history of meth use. Has previously been on Hospice, but this has been revoke by service due to ongoing meth use. Was also previously a DNR, but daughter wanted her to be a full code in the ED. Was treated recently at for acute on chronic systolic CHF. Required intubation in the ED. PAST MEDICAL HISTORY Cardiovascular: CHF, HTN, [place], Other (LV thrombus ) Pulmonary: COPD CENTRAL NERVOUS SYSTEM: CVA Hepatobiliary: Cirrhosis Psych: Anxiety, Addictions Renal/: Chronic renal insuff PAST SURGICAL HISTORY Past Surgical History: Pacemaker (AICD ), Cholecystectomy FAMILY HISTORY Family History: Diabetes, Heart Disease, Hypertension SOCIAL HISTORY Smoke: 1 pack per day Drugs: Crystal meth Lives: with Family (daughter ) CURRENT MEDICATIONS CURRENT MEDICATIONS Current Medications Medications (Trade) Dose Ordered Sig/Bradley Route PRN Reason Start Time Stop Time Status Last Admin Dose Admin Sodium Chloride 1,000 ml @ 1,000 mls/hr Q1H IV 06/15/20 11:30 06/15/20 12:29 DC 06/15/20 12:39 Fentanyl Citrate (Fentanyl 2ml Vial) 50 mcg 1X ONCE IVP 06/15/20 11:30 06/15/20 11:35 DC 06/15/20 12:37 Ondansetron HCl (Zofran) 4 mg 1X ONCE IVP 06/15/20 11:30 06/15/20 11:35 DC 06/15/20 12:37 Norepinephrine Bitartrate 8 mg/ Dextrose 258 ml @ 13.545 mls/ hr 1X ONCE IV 06/15/20 12:30 06/15/20 20:59 DC 06/15/20 12:41 Levofloxacin/ Dextrose 150 ml @ 100 mls/hr 1X ONCE IV 06/15/20 12:30 06/15/20 13:59 DC 06/15/20 13:23 Sodium Chloride 1,000 ml @ 1,000 mls/hr 1X ONCE IV 06/15/20 12:30 06/15/20 13:29 DC 06/15/20 12:39 Fentanyl Citrate (Fentanyl 2ml Vial) 50 mcg 1X ONCE IVP 06/15/20 13:15 06/15/20 14:01 DC 06/15/20 13:15 Dobutamine HCl/ Dextrose 250 ml @ 4.2 mls/hr 1X ONCE IV 06/15/20 15:00 06/18/20 02:31 06/15/20 15:40 Vasopressin 20 unit/Dextrose 101 ml @ 12 mls/hr CONT PRN IV SEE I/O RECORD 06/15/20 16:15 06/16/20 08:15 Phenylephrine HCl 50 mg/Sodium Chloride 255 ml @ 10.71 mls/ hr CONT PRN IV SEE I/O RECORD 06/15/20 16:15 06/15/20 17:05 Fentanyl Citrate 30 ml @ 2.5 mls/hr CONT PRN IV SEE PROTOCOL 06/15/20 16:15 06/16/20 00:39 Midazolam HCl 100 ml @ 1 mls/hr CONT PRN IV SEE PROTOCOL 06/15/20 16:15 06/15/20 17:06 Acetaminophen (Tylenol) 650 mg PRN Q6HRS PRN PEG MILD PAIN / TEMP > 100.3'F 06/15/20 16:45 06/16/20 07:36 Sodium Bicarbonate (Sodium Bicarb Adult 8.4% Syr) 100 meq 1X ONCE IV 06/15/20 17:30 06/15/20 17:31 DC 06/15/20 17:07 Rocuronium [place] (Zemuron) 50 mg 1X ONCE IV 06/15/20 17:15 06/15/20 17:16 DC 06/15/20 15:10 Succinylcholine Chloride (Anectine) 100 mg 1X ONCE IV 06/15/20 17:15 06/15/20 17:16 DC 06/15/20 14:30 Etomidate (Amidate) 20 mg 1X ONCE IV 06/15/20 17:15 06/15/20 17:16 DC 06/15/20 14:30 Albumin Human 500 ml @ 125 mls/hr PRN DAILY PRN IV Hypotension 06/15/20 17:30 06/15/20 18:10 Vancomycin HCl 1.5 gm/Sodium Chloride 500 ml @ 250 mls/hr 1X ONCE IV 06/15/20 18:00 06/15/20 19:59 DC 06/15/20 18:00 Enoxaparin Sodium (Lovenox 80mg Syringe) 80 mg Q12HR SQ 06/15/20 20:00 06/15/20 20:20 Norepinephrine Bitartrate 8 mg/ Dextrose 258 ml @ 13.545 mls/ hr CONT PRN IV PER PROTOCOL 06/15/20 21:00 06/16/20 08:32 Dextrose (Dextrose 50%-Water Syringe) 12.5 gm PRN Q15MIN PRN IV SEE COMMENTS 06/15/20 21:15 06/16/20 05:43 Vancomycin HCl (Vanco Per Pharmacy) 1 each PRN DAILY PRN MC SEE COMMENTS 06/16/20 07:45 06/16/20 08:36 DC 06/16/20 07:48 Daptomycin 400 mg/ Sodium Chloride 50 ml @ 100 mls/hr Q24H IV 06/16/20 10:00 06/16/20 09:18 ALLERGIES ALLERGIES: Coded Allergies: Penicillins (Verified Allergy, Intermediate, rash, 06/16/20) ROS Review of System unobtainable PHYSICAL EXAM General: Other (sedated ) HEENT: Atraumatic, Mucous membr. moist/pink Lungs: Other (mechanical ventilation ) Heart: Regular rate (ST) Abdomen: Other (anasarca, ) Extremities: Other (anasarca. Mottling of bilateral hands and feet, which are cool to touch. Bilateral breasts red, swollen. Diffuse ecchymosis. ) VITALS/I&O VITALS/I&O: Vital Signs Date Time Temp Pulse Resp B/P (MAP) Pulse Ox O2 Delivery O2 Flow Rate FiO2 06/16/20 10:30 100.6 118 20 103/55 (71) 100 Ventilator 100.6 I & O 06/15/20 06/15/20 06/16/20 14:59 22:59 06:59 Intake Total 1000 ml 1749.8 ml 1096 ml Output Total 80 ml 480 ml Balance 1000 ml 1669.8 ml 616 ml LABS Lab: Laboratory Tests Test 06/15/20 11:40 06/15/20 12:00 06/15/20 12:23 06/15/20 13:40 White Blood Count 11.2 x10^3/uL (4.0-11.0) H Red Blood Count 5.00 x10^6/uL (3.50-5.40) Hemoglobin 14.9 g/dL (12.0-15.5) Hematocrit 46.8 % (36.0-47.0) Mean Corpuscular Volume 94 fL (79-100) Mean Corpuscular Hemoglobin 30 pg (25-35) Mean Corpuscular Hemoglobin Concent 32 g/dL (31-37) Red Cell Distribution Width 17.4 % (11.5-14.5) H Platelet Count 203 x10^3/uL (140-400) Neutrophils (%) (Auto) 95 % (31-73) H Lymphocytes (%) (Auto) 2 % (24-48) L Monocytes (%) (Auto) 2 % (0-9) Eosinophils (%) (Auto) 2 % (0-3) Basophils (%) (Auto) 0 % (0-3) Neutrophils # (Auto) 10.6 x10^3/uL (1.8-7.7) H Lymphocytes # (Auto) 0.2 x10^3/uL (1.0-4.8) L Monocytes # (Auto) 0.2 x10^3/uL (0.0-1.1) Eosinophils # (Auto) 0.2 x10^3/uL (0.0-0.7) Basophils # (Auto) 0.0 x10^3/uL (0.0-0.2) Segmented Neutrophils % 55 % (35-66) Band Neutrophils % 40 % (0-9) H Lymphocytes % 5 % (24-48) L Platelet Estimate Adequate (ADEQUATE) Giant Platelets Present Polychromasia Present Prothrombin Time 24.5 SEC (11.7-14.0) H Prothrombin Time INR 2.2 (0.8-1.1) H Sodium Level 135 mmol/L (136-145) L Potassium Level 3.7 mmol/L (3.5-5.1) Chloride Level 97 mmol/L (98-107) L Carbon Dioxide Level 24 mmol/L (21-32) Anion Gap 14 (6-14) Blood Urea Nitrogen 36 mg/dL (7-20) H Creatinine 1.3 mg/dL (0.6-1.0) H Estimated GFR (Cockcroft-Gault) 43.7 BUN/Creatinine Ratio 28 (6-20) H Glucose Level 60 mg/dL (70-99) L Lactic Acid Level 4.7 mmol/L (0.4-2.0) *H Calcium Level 8.2 mg/dL (8.5-10.1) L Magnesium Level 1.8 mg/dL (1.8-2.4) Total Bilirubin 4.4 mg/dL (0.2-1.0) H Aspartate Amino Transferase (AST) 220 U/L (15-37) H Alanine Aminotransferase (ALT) 131 U/L (14-59) H Alkaline Phosphatase 412 U/L (46-116) H Ammonia < 10 mcmol/L (11-34) L Troponin I Quantitative < 0.017 ng/mL (0.000-0.055) Total Protein 6.9 g/dL (6.4-8.2) Albumin 2.0 g/dL (3.4-5.0) L Albumin/Globulin Ratio 0.4 (1.0-1.7) L Lipase 14 U/L (73-393) L Procalcitonin 11.68 ng/mL (0.00-0.10) H Urine Collection Type Unknown Urine Color [place] Urine Clarity Cloudy Urine pH 5.5 (<5.0-8.0) Urine Specific [place] 1.025 (1.000-1.030) Urine Protein 100 mg/dL (NEG-TRACE) Urine Glucose (UA) Negative mg/dL (NEG) Urine Ketones (Stick) Trace mg/dL (NEG) Urine Blood Moderate (NEG) Urine Nitrite Negative (NEG) Urine Bilirubin Moderate (NEG) Urine Urobilinogen Dipstick 2.0 mg/dL (0.2 mg/dL) Urine Leukocyte Esterase Moderate (NEG) Urine RBC Field obscured /HPF (0-2) Urine WBC 20-40 /HPF (0-4) Urine Squamous Epithelial Cells Many /LPF Urine Bacteria Many /HPF (0-FEW) Urine Hyaline Casts Many /HPF Urine Mucus Mod /LPF SARS-CoV-2 Antigen (Rapid) Negative (NEGATIVE) O2 Saturation 85 % (92-99) L Arterial Blood pH 7.15 (7.35-7.45) *L Arterial Blood pCO2 at Patient Temp 55 mmHg (35-46) H Arterial Blood pO2 at Patient Temp 64 mmHg (75-108) L Arterial Blood HCO3 19 mmol/L (21-28) L Arterial Blood Base Excess -11 mmol/L (-3-3) L Oxyhemoglobin 84.2 % Methemoglobin 0.3 % (0.0-1.9) Carbon Monoxide, Quantitative 0.9 % (0.0-1.9) FiO2 3 lpm nc Test 06/15/20 15:55 06/15/20 16:00 06/15/20 16:55 06/15/20 21:03 Lactic Acid Level 4.2 mmol/L (0.4-2.0) *H O2 Saturation 100 % (92-99) H Arterial Blood pH 7.20 (7.35-7.45) *L Arterial Blood pCO2 at Patient Temp 38 mmHg (35-46) Arterial Blood pO2 at Patient Temp 408 mmHg (75-108) H Arterial Blood HCO3 15 mmol/L (21-28) L Arterial Blood Base Excess -13 mmol/L (-3-3) L FiO2 100 Urine Opiates Screen Pos (NEG) Urine Methadone Screen Neg (NEG) Urine Barbiturates Neg (NEG) Urine Phencyclidine Screen Neg (NEG) Urine Amphetamine/Methamphetamine Pos (NEG) Urine Benzodiazepines Screen Neg (NEG) Urine Cocaine Screen Neg (NEG) Urine Cannabinoids Screen Neg (NEG) Urine Ethyl Alcohol Neg (NEG) Glucose (Fingerstick) 59 mg/dL (70-99) L Test 06/15/20 21:17 06/16/20 00:18 06/16/20 05:30 06/16/20 05:41 Glucose (Fingerstick) 151 mg/dL (70-99) H 79 mg/dL (70-99) 64 mg/dL (70-99) L 159 mg/dL (70-99) H White Blood Count 13.7 x10^3/uL (4.0-11.0) H Red Blood Count 3.85 x10^6/uL (3.50-5.40) Hemoglobin 11.4 g/dL (12.0-15.5) L Hematocrit 36.5 % (36.0-47.0) Mean Corpuscular Volume 95 fL (79-100) Mean Corpuscular Hemoglobin 30 pg (25-35) Mean Corpuscular Hemoglobin Concent 31 g/dL (31-37) Red Cell Distribution Width 18.1 % (11.5-14.5) H Platelet Count 139 x10^3/uL (140-400) L Neutrophils (%) (Auto) 91 % (31-73) H Lymphocytes (%) (Auto) 3 % (24-48) L Monocytes (%) (Auto) 4 % (0-9) Eosinophils (%) (Auto) 2 % (0-3) Basophils (%) (Auto) 0 % (0-3) Neutrophils # (Auto) 12.5 x10^3/uL (1.8-7.7) H Lymphocytes # (Auto) 0.4 x10^3/uL (1.0-4.8) L Monocytes # (Auto) 0.5 x10^3/uL (0.0-1.1) Eosinophils # (Auto) 0.3 x10^3/uL (0.0-0.7) Basophils # (Auto) 0.0 x10^3/uL (0.0-0.2) Segmented Neutrophils % 41 % (35-66) Band Neutrophils % 38 % (0-9) H Lymphocytes % 2 % (24-48) L Monocytes % 4 % (0-10) Eosinophils % 2 % (0-5) Metamyelocytes % 9 % (0-0) H Myelocytes % 4 % (0-0) H Nucleated Red Blood Cells 1 Toxic Granulation Marked Platelet Estimate Adequate (ADEQUATE) Anisocytosis Slight Sodium Level 136 mmol/L (136-145) Potassium Level 4.8 mmol/L (3.5-5.1) # Chloride Level 104 mmol/L (98-107) Carbon Dioxide Level 17 mmol/L (21-32) L Anion Gap 15 (6-14) H Blood Urea Nitrogen 38 mg/dL (7-20) H Creatinine 1.6 mg/dL (0.6-1.0) H Estimated GFR (Cockcroft-Gault) 34.4 BUN/Creatinine Ratio 24 (6-20) H Glucose Level 63 mg/dL (70-99) L Calcium Level 7.0 mg/dL (8.5-10.1) L Total Bilirubin 4.4 mg/dL (0.2-1.0) H Aspartate Amino Transferase (AST) 248 U/L (15-37) H Alanine Aminotransferase (ALT) 150 U/L (14-59) H Alkaline Phosphatase 246 U/L (46-116) H Total Protein 5.5 g/dL (6.4-8.2) L Albumin 1.7 g/dL (3.4-5.0) L Albumin/Globulin Ratio 0.4 (1.0-1.7) L Test 06/16/20 08:45 O2 Saturation 96 % (92-99) Arterial Blood pH 7.28 (7.35-7.45) L Arterial Blood pCO2 at Patient Temp 37 mmHg (35-46) Arterial Blood pO2 at Patient Temp 89 mmHg (75-108) Arterial Blood HCO3 17 mmol/L (21-28) L Arterial Blood Base Excess -9 mmol/L (-3-3) L FiO2 40%/ ac 20 vt 450 pe Laboratory Tests 06/15/20 11:40 06/16/20 05:30 Laboratory Tests 06/15/20 11:40 06/16/20 05:30 ECHOCARDIOGRAM ECHOCARDIOGRAM 03/19/20 - 2D + DOPPLER ECHO Rest Echo: Severely dilated left ventricle with severely depressed systolic function. EF~10- 15% Multiple (3) echo-densities seen in the basal inferior/inferoseptal area near left ventricular outflow with largest measuring 1.7 x 1.7 cm, suggestive of thrombus (likely) versus tumor. Consider cardiac MRI for further evaluation. Mildly dilated right ventricle with mildly depressed systolic function Mild mitral and tricuspid regurgitation Trace pericardial effusion Estimated peak systolic PA pressure of 34 mmHg Compared to previous study on 10/30/2018, biventricular systolic function appears to be further decreased, trace pericardial effusion and there are echo-densities seen in left ventricle as described. ASSESSMENT/PLAN ASSESSMENT/PLAN 1. Acute respiratory failure; multifactorial; s/p intubation 2. Acute on chronic systolic CHF 3. Severe NICM; LVEF 10-15 per echo 03/11. s/p AICD ([place]). Follows with Dr. Wilde of heart failure clinic. Previously received [facility] services however due to breaking narcotic contract she lost services thru agency 4. Combine septic, cardiogenic shock. Requiring pressor support 5. Leukocytosis, lactic acidosis, persistent fevers 6. H/o LV thrombus noncompliant with OAC, Eliquis 7. H/o CVA 8. Coagulopathy, thrombocytopenia with h/o cirrhosis 9. Elevated LFTs 10. LARISSA on CKD 11. Gluteal abscess 12. Substance abuse; long-standing h/o meth use. UDS + amphetamines 13. PUI; COVID PCR negative Recommendations Caution fluids with severe CMP. D/w primary museum educator, will add inotropic support with milrinone Ongoing antibiotic therapy. Follow cultures. CT head to r/o bleed Lung optimization as per pulmonary Prognosis very poor; previously DNR, which was revoked upon arrival to ED D/w sister who is reportedly DPOA, would recommend DNR Supportive care KELSIE LAFLEUR MD 06/16/20 1741: CARDIAC CONSULT ASSESSMENT/PLAN ASSESSMENT/PLAN Patient seen and evaluated I agree with our nurse practitioners assessment as above. Acute respiratory failure; multifactorial; s/p intubation Acute on chronic systolic CHF, severe NICM; LVEF 10-15 per echo 03/11. s/p AICD ([place]). Follows with Dr. Wilde of heart failure clinic. Previously received [facility] services however due to breaking narcotic contract she lost services thru agency Combine septic, cardiogenic shock. Requiring pressor support H/o LV thrombus noncompliant with OAC, Eliquis H/o CVA Coagulopathy, thrombocytopenia with h/o cirrhosis LARISSA on CKD Substance abuse; long-standing h/o meth use. UDS + amphetamines PUI; COVID PCR negative CHIKIS JOSÉ APRN Jun 16, 2020 11:15 KELSIE LAFLEUR MD Jun 16, 2020 17:41
--- NOTE | 2020-06-16 11:48 | PDOC2 ---
CONSULT Date of Consult Date of Consult DATE: 06/16/20 TIME: 11:34 Reason for Consult Reason for Consult: LARISSA Referring Physician Referring Physician: MELVIN Identification/Chief Complaint Chief Complaint BELOW Source Source: Chart review History of Present Illness Reason for Visit: THIS IS A 49 YR OLD WITH ABD TENDERNESS, KNEE MOTTLING AND THIGH MOTTLING SKIN LESIONS. ALSO NOTED ON HER BREASTS. SHE IS SOB AND HYPOTENSIVE AND IN RESP FAILURE. CURRENTLY ON THE VENT. ALSO LEFT GLUTEAL AREA WOUND. NOTED TO HAVE LEUCOCYTOSIS AND LARISSA ON LABS. SHE ALSO HAS AND AG MET ACIDOSIS AND ACIDEMIA. HER CR IS 1.6. NO KNOWN CKD. TOXICOLOGY POS FOR METH AND OPIATES. ? CARDIAC HX FOR SEVERE CM AND AICD PLACEMENT. SHE WAS APPARENTLY ON HOSPICE DUE TO CARDIAC ISSUES BUT THEN CAME OFF HOSPICE. LAST HER IN 2013. INTERVAL HX UNKNOWN. Past Medical History Cardiovascular: CHF, HTN, [place], Other (LV thrombus ) Pulmonary: COPD CENTRAL NERVOUS SYSTEM: CVA Hepatobiliary: Cirrhosis Psych: Anxiety, Addictions Past Surgical History Past Surgical History: Cholecystectomy Family History Family History: Diabetes, Heart Disease, Hypertension Social History 1 pack per day ALCOHOL: none Drugs: Crystal meth Current Problem List Problem List Problems Medical Problems: (1) Ileus Status: Acute (2) Person under investigation for COVID-19 Status: Acute (3) Pneumonia Status: Acute (4) Sepsis Status: Acute (5) Severe sepsis Status: Acute (6) UTI (urinary tract infection) Status: Acute Current Medications Current Medications Current Medications Sodium Chloride 1,000 ml @ 1,000 mls/hr Q1H IV Last administered on 06/15/20at 12:39; Start 06/15/20 at 11:30; Stop 06/15/20 at 12:29; Status DC Fentanyl Citrate (Fentanyl 2ml Vial) 50 mcg 1X ONCE IVP Last administered on 06/15/20at 12:37; Start 06/15/20 at 11:30; Stop 06/15/20 at 11:35; Status DC Ondansetron HCl (Zofran) 4 mg 1X ONCE IVP Last administered on 06/15/20at 12:37; Start 06/15/20 at 11:30; Stop 06/15/20 at 11:35; Status DC Norepinephrine Bitartrate 8 mg/ Dextrose 258 ml @ 13.545 mls/ hr 1X ONCE IV Last administered on 06/15/20at 12:41; Start 06/15/20 at 12:30; Stop 06/15/20 at 20:59; Status DC Levofloxacin/ Dextrose 150 ml @ 100 mls/hr 1X ONCE IV Last administered on 06/15/20at 13:23; Start 06/15/20 at 12:30; Stop 06/15/20 at 13:59; Status DC Sodium Chloride 1,000 ml @ 1,000 mls/hr 1X ONCE IV Last administered on 06/15/20at 12:39; Start 06/15/20 at 12:30; Stop 06/15/20 at 13:29; Status DC Lidocaine HCl (Lidocaine 1% 20ml Vial) 20 ml 1X ONCE INJ ; Start 06/15/20 at 13:00; Stop 06/15/20 at 13:01; Status DC Fentanyl Citrate (Fentanyl 2ml Vial) 50 mcg 1X ONCE IVP Last administered on 06/15/20at 13:15; Start 06/15/20 at 13:15; Stop 06/15/20 at 14:01; Status DC Etomidate (Amidate) 20 mg STK-MED ONCE IV ; Start 06/15/20 at 14:36; Stop 06/15/20 at 14:36; Status DC Succinylcholine Chloride (Anectine) 200 mg STK-MED ONCE .ROUTE ; Start 06/15/20 at 14:36; Stop 06/15/20 at 14:36; Status DC Dobutamine HCl/ Dextrose 250 ml @ 4.2 mls/hr 1X ONCE IV Last administered on 06/15/20at 15:40; Start 06/15/20 at 15:00; Stop 06/18/20 at 02:31 Norepinephrine Bitartrate 8 mg/ Dextrose 258 ml @ 13.545 mls/ hr 1X ONCE IV ; Start 06/15/20 at 16:00; Stop 06/16/20 at 11:02; Status Cancel Vasopressin 20 unit/Dextrose 101 ml @ 12 mls/hr CONT PRN IV SEE I/O RECORD Last administered on 06/16/20at 08:15; Start 06/15/20 at 16:15 Phenylephrine HCl 50 mg/Sodium Chloride 255 ml @ 10.71 mls/ hr CONT PRN IV SEE I/O RECORD Last administered on 06/15/20at 17:05; Start 06/15/20 at 16:15 Fentanyl Citrate 30 ml @ 2.5 mls/hr CONT PRN IV SEE PROTOCOL Last administered on 06/16/20at 00:39; Start 06/15/20 at 16:15 Midazolam HCl 100 ml @ 1 mls/hr CONT PRN IV SEE PROTOCOL Last administered on 06/15/20at 17:06; Start 06/15/20 at 16:15 Acetaminophen (Tylenol) 650 mg PRN Q6HRS PRN PEG MILD PAIN / TEMP > 100.3'F Last administered on 06/16/20at 07:36; Start 06/15/20 at 16:45 Sodium Bicarbonate (Sodium Bicarb Adult 8.4% Syr) 100 meq 1X ONCE IV Last administered on 06/15/20at 17:07; Start 06/15/20 at 17:30; Stop 06/15/20 at 17:31; Status DC Sodium Bicarbonate (Sodium Bicarb Adult 8.4% Syr) 50 meq STK-MED ONCE .ROUTE ; Start 06/15/20 at 17:01; Stop 06/15/20 at 17:01; Status DC Rocuronium [place] (Zemuron) 50 mg 1X ONCE IV Last administered on 06/15/20at 15:10; Start 06/15/20 at 17:15; Stop 06/15/20 at 17:16; Status DC Succinylcholine Chloride (Anectine) 100 mg 1X ONCE IV Last administered on 06/15/20at 14:30; Start 06/15/20 at 17:15; Stop 06/15/20 at 17:16; Status DC Etomidate (Amidate) 20 mg 1X ONCE IV Last administered on 06/15/20at 14:30; Start 06/15/20 at 17:15; Stop 06/15/20 at 17:16; Status DC Albumin Human 500 ml @ 125 mls/hr PRN DAILY PRN IV Hypotension Last administered on 06/15/20at 18:10; Start 06/15/20 at 17:30 Levofloxacin/ Dextrose 150 ml @ 100 mls/hr Q48H IV ; Start 06/17/20 at 14:00 Vancomycin HCl 1.5 gm/Sodium Chloride 500 ml @ 250 mls/hr 1X ONCE IV Last administered on 06/15/20at 18:00; Start 06/15/20 at 18:00; Stop 06/15/20 at 19:59; Status DC Enoxaparin Sodium (Lovenox Per Pharmacy Treatment Dosing) 1 each PRN DAILY PRN MC SEE COMMENTS; Start 06/15/20 at 18:00 Ondansetron HCl (Zofran) 4 mg PRN Q6HRS PRN IVP NAUSEA/VOMITING; Start 06/15/20 at 18:00 Enoxaparin Sodium (Lovenox 80mg Syringe) 80 mg Q12HR SQ Last administered on 06/15/20at 20:20; Start 06/15/20 at 20:00 Norepinephrine Bitartrate 8 mg/ Dextrose 258 ml @ 13.545 mls/ hr CONT PRN IV PER PROTOCOL Last administered on 06/16/20at 08:32; Start 06/15/20 at 21:00 Dextrose (Dextrose 50%-Water Syringe) 25 gm STK-MED ONCE IV ; Start 06/15/20 at 21:06; Stop 06/15/20 at 21:07; Status DC Dextrose (Dextrose 50%-Water Syringe) 12.5 gm PRN Q15MIN PRN IV SEE COMMENTS Last administered on 06/16/20at 05:43; Start 06/15/20 at 21:15 Vancomycin HCl (Vanco Per Pharmacy) 1 each PRN DAILY PRN MC SEE COMMENTS Last administered on 06/16/20at 07:48; Start 06/16/20 at 07:45; Stop 06/16/20 at 08:36; Status DC Vancomycin HCl 1.25 gm/Sodium Chloride 250 ml @ 167 mls/hr Q24H IV ; Start 06/16/20 at 18:00; Stop 06/16/20 at 08:34; Status DC Vancomycin HCl (Vancomycin Trough Level) 1 each 1X ONCE MC ; Start 06/17/20 at 17:30; Stop 06/17/20 at 17:31; Status Cancel Meropenem 500 mg/ Sodium Chloride 50 ml @ 100 mls/hr Q8HRS IV ; Start 06/16/20 at 14:00 Daptomycin 400 mg/ Sodium Chloride 50 ml @ 100 mls/hr Q24H IV Last administered on 06/16/20at 09:18; Start 06/16/20 at 10:00 Active Scripts Active Reported Hydrocodone-Apap 10-325 (Hydrocodone Bit/Acetaminophen) 1 Each Tablet 3 Tab PO Q3-4HRS PRN Alprazolam 1 Mg Tablet 1 Tab PO BID Methadone Hcl 10 Mg Tablet 10 Mg PO PRN PRN Lipitor (Atorvastatin Calcium) 40 Mg Tablet 1 Tab PO QHS Allergies Allergies: Coded Allergies: Penicillins (Verified Allergy, Intermediate, rash, 06/16/20) ROS Review of System UNABLE TO OBTAIN Physical Exam General: No acute distress HEENT: Other (ET AND NGT IN PLACE) Lungs: Other (DECREASED AT BASES) Heart: Regular rate Abdomen: Normal bowel sounds, Soft Extremities: No clubbing Skin: Other (VIOLACEOUS SKIN LESION DIFFUSELY THROUGH OUT HER VENTRAL AREA) Neuro: Other (SEDATED) Psych/Mental Status: Other (UNABLE TO ASSESS) MUSCULOSKELETAL: Other (UNABLE TO ASSESS) Vitals VITALS Vital Signs Date Time Temp Pulse Resp B/P (MAP) Pulse Ox O2 Delivery O2 Flow Rate FiO2 06/16/20 10:30 100.6 118 20 103/55 (71) 100 Ventilator 100.6 Labs Labs Laboratory Tests Test 06/15/20 11:40 06/15/20 12:00 06/15/20 12:23 06/15/20 13:40 White Blood Count 11.2 x10^3/uL (4.0-11.0) Red Blood Count 5.00 x10^6/uL (3.50-5.40) Hemoglobin 14.9 g/dL (12.0-15.5) Hematocrit 46.8 % (36.0-47.0) Mean Corpuscular Volume 94 fL (79-100) Mean Corpuscular Hemoglobin 30 pg (25-35) Mean Corpuscular Hemoglobin Concent 32 g/dL (31-37) Red Cell Distribution Width 17.4 % (11.5-14.5) Platelet Count 203 x10^3/uL (140-400) Neutrophils (%) (Auto) 95 % (31-73) Lymphocytes (%) (Auto) 2 % (24-48) Monocytes (%) (Auto) 2 % (0-9) Eosinophils (%) (Auto) 2 % (0-3) Basophils (%) (Auto) 0 % (0-3) Neutrophils # (Auto) 10.6 x10^3/uL (1.8-7.7) Lymphocytes # (Auto) 0.2 x10^3/uL (1.0-4.8) Monocytes # (Auto) 0.2 x10^3/uL (0.0-1.1) Eosinophils # (Auto) 0.2 x10^3/uL (0.0-0.7) Basophils # (Auto) 0.0 x10^3/uL (0.0-0.2) Segmented Neutrophils % 55 % (35-66) Band Neutrophils % 40 % (0-9) Lymphocytes % 5 % (24-48) Platelet Estimate Adequate (ADEQUATE) Giant Platelets Present Polychromasia Present Prothrombin Time 24.5 SEC (11.7-14.0) Prothromb Time International Ratio 2.2 (0.8-1.1) Sodium Level 135 mmol/L (136-145) Potassium Level 3.7 mmol/L (3.5-5.1) Chloride Level 97 mmol/L (98-107) Carbon Dioxide Level 24 mmol/L (21-32) Anion Gap 14 (6-14) Blood Urea Nitrogen 36 mg/dL (7-20) Creatinine 1.3 mg/dL (0.6-1.0) Estimated GFR (Cockcroft-Gault) 43.7 BUN/Creatinine Ratio 28 (6-20) Glucose Level 60 mg/dL (70-99) Lactic Acid Level 4.7 mmol/L (0.4-2.0) Calcium Level 8.2 mg/dL (8.5-10.1) Magnesium Level 1.8 mg/dL (1.8-2.4) Total Bilirubin 4.4 mg/dL (0.2-1.0) Aspartate Amino Transf (AST/SGOT) 220 U/L (15-37) Alanine Aminotransferase (ALT/SGPT) 131 U/L (14-59) Alkaline Phosphatase 412 U/L (46-116) Ammonia < 10 mcmol/L (11-34) Troponin I Quantitative < 0.017 ng/mL (0.000-0.055) Total Protein 6.9 g/dL (6.4-8.2) Albumin 2.0 g/dL (3.4-5.0) Albumin/Globulin Ratio 0.4 (1.0-1.7) Lipase 14 U/L (73-393) Procalcitonin 11.68 ng/mL (0.00-0.10) Urine Collection Type Unknown Urine Color [place] Urine Clarity Cloudy Urine pH 5.5 (<5.0-8.0) Urine Specific [place] 1.025 (1.000-1.030) Urine Protein 100 mg/dL (NEG-TRACE) Urine Glucose (UA) Negative mg/dL (NEG) Urine Ketones (Stick) Trace mg/dL (NEG) Urine Blood Moderate (NEG) Urine Nitrite Negative (NEG) Urine Bilirubin Moderate (NEG) Urine Urobilinogen Dipstick 2.0 mg/dL (0.2 mg/dL) Urine Leukocyte Esterase Moderate (NEG) Urine RBC Field obscured /HPF (0-2) Urine WBC 20-40 /HPF (0-4) Urine Squamous Epithelial Cells Many /LPF Urine Bacteria Many /HPF (0-FEW) Urine Hyaline Casts Many /HPF Urine Mucus Mod /LPF SARS-CoV-2 Antigen (Rapid) Negative (NEGATIVE) O2 Saturation 85 % (92-99) Arterial Blood pH 7.15 (7.35-7.45) Arterial Blood pCO2 at Patient Temp 55 mmHg (35-46) Arterial Blood pO2 at Patient Temp 64 mmHg (75-108) Arterial Blood HCO3 19 mmol/L (21-28) Arterial Blood Base Excess -11 mmol/L (-3-3) Oxyhemoglobin 84.2 % Methemoglobin 0.3 % (0.0-1.9) Carbon Monoxide, Quantitative 0.9 % (0.0-1.9) FiO2 3 lpm nc Test 06/15/20 15:55 06/15/20 16:00 06/15/20 16:55 06/15/20 21:03 Lactic Acid Level 4.2 mmol/L (0.4-2.0) O2 Saturation 100 % (92-99) Arterial Blood pH 7.20 (7.35-7.45) Arterial Blood pCO2 at Patient Temp 38 mmHg (35-46) Arterial Blood pO2 at Patient Temp 408 mmHg (75-108) Arterial Blood HCO3 15 mmol/L (21-28) Arterial Blood Base Excess -13 mmol/L (-3-3) FiO2 100 Urine Opiates Screen Pos (NEG) Urine Methadone Screen Neg (NEG) Urine Barbiturates Neg (NEG) Urine Phencyclidine Screen Neg (NEG) Urine Amphetamine/Methamphetamine Pos (NEG) Urine Benzodiazepines Screen Neg (NEG) Urine Cocaine Screen Neg (NEG) Urine Cannabinoids Screen Neg (NEG) Urine Ethyl Alcohol Neg (NEG) Glucose (Fingerstick) 59 mg/dL (70-99) Test 06/15/20 21:17 06/16/20 00:18 06/16/20 05:30 06/16/20 05:41 Glucose (Fingerstick) 151 mg/dL (70-99) 79 mg/dL (70-99) 64 mg/dL (70-99) 159 mg/dL (70-99) White Blood Count 13.7 x10^3/uL (4.0-11.0) Red Blood Count 3.85 x10^6/uL (3.50-5.40) Hemoglobin 11.4 g/dL (12.0-15.5) Hematocrit 36.5 % (36.0-47.0) Mean Corpuscular Volume 95 fL (79-100) Mean Corpuscular Hemoglobin 30 pg (25-35) Mean Corpuscular Hemoglobin Concent 31 g/dL (31-37) Red Cell Distribution Width 18.1 % (11.5-14.5) Platelet Count 139 x10^3/uL (140-400) Neutrophils (%) (Auto) 91 % (31-73) Lymphocytes (%) (Auto) 3 % (24-48) Monocytes (%) (Auto) 4 % (0-9) Eosinophils (%) (Auto) 2 % (0-3) Basophils (%) (Auto) 0 % (0-3) Neutrophils # (Auto) 12.5 x10^3/uL (1.8-7.7) Lymphocytes # (Auto) 0.4 x10^3/uL (1.0-4.8) Monocytes # (Auto) 0.5 x10^3/uL (0.0-1.1) Eosinophils # (Auto) 0.3 x10^3/uL (0.0-0.7) Basophils # (Auto) 0.0 x10^3/uL (0.0-0.2) Segmented Neutrophils % 41 % (35-66) Band Neutrophils % 38 % (0-9) Lymphocytes % 2 % (24-48) Monocytes % 4 % (0-10) Eosinophils % 2 % (0-5) Metamyelocytes % 9 % (0-0) Myelocytes % 4 % (0-0) Nucleated Red Blood Cells 1 Toxic Granulation Marked Platelet Estimate Adequate (ADEQUATE) Anisocytosis Slight Sodium Level 136 mmol/L (136-145) Potassium Level 4.8 mmol/L (3.5-5.1) Chloride Level 104 mmol/L (98-107) Carbon Dioxide Level 17 mmol/L (21-32) Anion Gap 15 (6-14) Blood Urea Nitrogen 38 mg/dL (7-20) Creatinine 1.6 mg/dL (0.6-1.0) Estimated GFR (Cockcroft-Gault) 34.4 BUN/Creatinine Ratio 24 (6-20) Glucose Level 63 mg/dL (70-99) Calcium Level 7.0 mg/dL (8.5-10.1) Total Bilirubin 4.4 mg/dL (0.2-1.0) Aspartate Amino Transf (AST/SGOT) 248 U/L (15-37) Alanine Aminotransferase (ALT/SGPT) 150 U/L (14-59) Alkaline Phosphatase 246 U/L (46-116) Total Protein 5.5 g/dL (6.4-8.2) Albumin 1.7 g/dL (3.4-5.0) Albumin/Globulin Ratio 0.4 (1.0-1.7) Test 06/16/20 08:45 O2 Saturation 96 % (92-99) Arterial Blood pH 7.28 (7.35-7.45) Arterial Blood pCO2 at Patient Temp 37 mmHg (35-46) Arterial Blood pO2 at Patient Temp 89 mmHg (75-108) Arterial Blood HCO3 17 mmol/L (21-28) Arterial Blood Base Excess -9 mmol/L (-3-3) FiO2 40%/ ac 20 vt 450 pe Laboratory Tests Test 06/15/20 11:40 06/15/20 12:00 06/15/20 12:23 06/15/20 13:40 White Blood Count 11.2 x10^3/uL (4.0-11.0) Red Blood Count 5.00 x10^6/uL (3.50-5.40) Hemoglobin 14.9 g/dL (12.0-15.5) Hematocrit 46.8 % (36.0-47.0) Mean Corpuscular Volume 94 fL (79-100) Mean Corpuscular Hemoglobin 30 pg (25-35) Mean Corpuscular Hemoglobin Concent 32 g/dL (31-37) Red Cell Distribution Width 17.4 % (11.5-14.5) Platelet Count 203 x10^3/uL (140-400) Neutrophils (%) (Auto) 95 % (31-73) Lymphocytes (%) (Auto) 2 % (24-48) Monocytes (%) (Auto) 2 % (0-9) Eosinophils (%) (Auto) 2 % (0-3) Basophils (%) (Auto) 0 % (0-3) Neutrophils # (Auto) 10.6 x10^3/uL (1.8-7.7) Lymphocytes # (Auto) 0.2 x10^3/uL (1.0-4.8) Monocytes # (Auto) 0.2 x10^3/uL (0.0-1.1) Eosinophils # (Auto) 0.2 x10^3/uL (0.0-0.7) Basophils # (Auto) 0.0 x10^3/uL (0.0-0.2) Segmented Neutrophils % 55 % (35-66) Band Neutrophils % 40 % (0-9) Lymphocytes % 5 % (24-48) Platelet Estimate Adequate (ADEQUATE) Giant Platelets Present Polychromasia Present Prothrombin Time 24.5 SEC (11.7-14.0) Prothromb Time International Ratio 2.2 (0.8-1.1) Sodium Level 135 mmol/L (136-145) Potassium Level 3.7 mmol/L (3.5-5.1) Chloride Level 97 mmol/L (98-107) Carbon Dioxide Level 24 mmol/L (21-32) Anion Gap 14 (6-14) Blood Urea Nitrogen 36 mg/dL (7-20) Creatinine 1.3 mg/dL (0.6-1.0) Estimated GFR (Cockcroft-Gault) 43.7 BUN/Creatinine Ratio 28 (6-20) Glucose Level 60 mg/dL (70-99) Lactic Acid Level 4.7 mmol/L (0.4-2.0) Calcium Level 8.2 mg/dL (8.5-10.1) Magnesium Level 1.8 mg/dL (1.8-2.4) Total Bilirubin 4.4 mg/dL (0.2-1.0) Aspartate Amino Transf (AST/SGOT) 220 U/L (15-37) Alanine Aminotransferase (ALT/SGPT) 131 U/L (14-59) Alkaline Phosphatase 412 U/L (46-116) Ammonia < 10 mcmol/L (11-34) Troponin I Quantitative < 0.017 ng/mL (0.000-0.055) Total Protein 6.9 g/dL (6.4-8.2) Albumin 2.0 g/dL (3.4-5.0) Albumin/Globulin Ratio 0.4 (1.0-1.7) Lipase 14 U/L (73-393) Procalcitonin 11.68 ng/mL (0.00-0.10) Urine Collection Type Unknown Urine Color [place] Urine Clarity Cloudy Urine pH 5.5 (<5.0-8.0) Urine Specific [place] 1.025 (1.000-1.030) Urine Protein 100 mg/dL (NEG-TRACE) Urine Glucose (UA) Negative mg/dL (NEG) Urine Ketones (Stick) Trace mg/dL (NEG) Urine Blood Moderate (NEG) Urine Nitrite Negative (NEG) Urine Bilirubin Moderate (NEG) Urine Urobilinogen Dipstick 2.0 mg/dL (0.2 mg/dL) Urine Leukocyte Esterase Moderate (NEG) Urine RBC Field obscured /HPF (0-2) Urine WBC 20-40 /HPF (0-4) Urine Squamous Epithelial Cells Many /LPF Urine Bacteria Many /HPF (0-FEW) Urine Hyaline Casts Many /HPF Urine Mucus Mod /LPF SARS-CoV-2 Antigen (Rapid) Negative (NEGATIVE) O2 Saturation 85 % (92-99) Arterial Blood pH 7.15 (7.35-7.45) Arterial Blood pCO2 at Patient Temp 55 mmHg (35-46) Arterial Blood pO2 at Patient Temp 64 mmHg (75-108) Arterial Blood HCO3 19 mmol/L (21-28) Arterial Blood Base Excess -11 mmol/L (-3-3) Oxyhemoglobin 84.2 % Methemoglobin 0.3 % (0.0-1.9) Carbon Monoxide, Quantitative 0.9 % (0.0-1.9) FiO2 3 lpm nc Test 06/15/20 15:55 06/15/20 16:00 06/15/20 16:55 06/15/20 21:03 Lactic Acid Level 4.2 mmol/L (0.4-2.0) O2 Saturation 100 % (92-99) Arterial Blood pH 7.20 (7.35-7.45) Arterial Blood pCO2 at Patient Temp 38 mmHg (35-46) Arterial Blood pO2 at Patient Temp 408 mmHg (75-108) Arterial Blood HCO3 15 mmol/L (21-28) Arterial Blood Base Excess -13 mmol/L (-3-3) FiO2 100 Urine Opiates Screen Pos (NEG) Urine Methadone Screen Neg (NEG) Urine Barbiturates Neg (NEG) Urine Phencyclidine Screen Neg (NEG) Urine Amphetamine/Methamphetamine Pos (NEG) Urine Benzodiazepines Screen Neg (NEG) Urine Cocaine Screen Neg (NEG) Urine Cannabinoids Screen Neg (NEG) Urine Ethyl Alcohol Neg (NEG) Glucose (Fingerstick) 59 mg/dL (70-99) Test 06/15/20 21:17 06/16/20 00:18 06/16/20 05:30 06/16/20 05:41 Glucose (Fingerstick) 151 mg/dL (70-99) 79 mg/dL (70-99) 64 mg/dL (70-99) 159 mg/dL (70-99) White Blood Count 13.7 x10^3/uL (4.0-11.0) Red Blood Count 3.85 x10^6/uL (3.50-5.40) Hemoglobin 11.4 g/dL (12.0-15.5) Hematocrit 36.5 % (36.0-47.0) Mean Corpuscular Volume 95 fL (79-100) Mean Corpuscular Hemoglobin 30 pg (25-35) Mean Corpuscular Hemoglobin Concent 31 g/dL (31-37) Red Cell Distribution Width 18.1 % (11.5-14.5) Platelet Count 139 x10^3/uL (140-400) Neutrophils (%) (Auto) 91 % (31-73) Lymphocytes (%) (Auto) 3 % (24-48) Monocytes (%) (Auto) 4 % (0-9) Eosinophils (%) (Auto) 2 % (0-3) Basophils (%) (Auto) 0 % (0-3) Neutrophils # (Auto) 12.5 x10^3/uL (1.8-7.7) Lymphocytes # (Auto) 0.4 x10^3/uL (1.0-4.8) Monocytes # (Auto) 0.5 x10^3/uL (0.0-1.1) Eosinophils # (Auto) 0.3 x10^3/uL (0.0-0.7) Basophils # (Auto) 0.0 x10^3/uL (0.0-0.2) Segmented Neutrophils % 41 % (35-66) Band Neutrophils % 38 % (0-9) Lymphocytes % 2 % (24-48) Monocytes % 4 % (0-10) Eosinophils % 2 % (0-5) Metamyelocytes % 9 % (0-0) Myelocytes % 4 % (0-0) Nucleated Red Blood Cells 1 Toxic Granulation Marked Platelet Estimate Adequate (ADEQUATE) Anisocytosis Slight Sodium Level 136 mmol/L (136-145) Potassium Level 4.8 mmol/L (3.5-5.1) Chloride Level 104 mmol/L (98-107) Carbon Dioxide Level 17 mmol/L (21-32) Anion Gap 15 (6-14) Blood Urea Nitrogen 38 mg/dL (7-20) Creatinine 1.6 mg/dL (0.6-1.0) Estimated GFR (Cockcroft-Gault) 34.4 BUN/Creatinine Ratio 24 (6-20) Glucose Level 63 mg/dL (70-99) Calcium Level 7.0 mg/dL (8.5-10.1) Total Bilirubin 4.4 mg/dL (0.2-1.0) Aspartate Amino Transf (AST/SGOT) 248 U/L (15-37) Alanine Aminotransferase (ALT/SGPT) 150 U/L (14-59) Alkaline Phosphatase 246 U/L (46-116) Total Protein 5.5 g/dL (6.4-8.2) Albumin 1.7 g/dL (3.4-5.0) Albumin/Globulin Ratio 0.4 (1.0-1.7) Test 06/16/20 08:45 O2 Saturation 96 % (92-99) Arterial Blood pH 7.28 (7.35-7.45) Arterial Blood pCO2 at Patient Temp 37 mmHg (35-46) Arterial Blood pO2 at Patient Temp 89 mmHg (75-108) Arterial Blood HCO3 17 mmol/L (21-28) Arterial Blood Base Excess -9 mmol/L (-3-3) FiO2 40%/ ac 20 vt 450 pe Assessment/Plan Assessment/Plan IMP LARISSA WITH CR OF 1.6 MET ACIDOSIS ACUTE RESP FAILURE POLYSUBSTANCE DRUG USE SEPTIC SHOCK LEUCOCYTOSIS CM WITH EF OF 10-15% HX OF LV THROMBUS SKIN LESION-?SKIN NECROSIS-INFECTION VS ?COUMADIN ETC PLAN VERY POOR PROGNOSIS OVERALL ANTIBIOTICS PRESSORS CARDIOLOGY EVALUATION LOW FLOW VOLUME EXPANSION UNLIKELY TO TOLERATE TOO MUCH VOLUME D/W DR OAKLEY AND REYNA PENG MD Jun 16, 2020 11:48
--- NOTE | 2020-06-16 12:10 | CONS ---
DATE OF CONSULTATION: 06/16/2020 PULMONARY CONSULTATION ATTENDING PHYSICIAN: Antonio Vila MD REASON FOR CONSULTATION: Respiratory failure. HISTORY OF PRESENT ILLNESS: The patient is a 49-year-old female who has been followed at on a regular basis. She has history of severe cardiomyopathy with an EF of 10% to 15%. History of combined systolic and diastolic heart failure, nonischemic cardiomyopathy, LV thrombus with noncompliance with anticoagulation, hypertension and polysubstance abuse. The patient has also AICD. She has required multiple admissions at [facility] and was told that nothing could be done and was advised to be on home hospice. The patient also has a history of cirrhosis. She was brought into the hospital with complaint of bilateral weakness, bilateral mottling of the knees and in her thighs as well as a rash in her upper abdomen as well. The patient was afebrile. Her ABGs on admission showed a pH of 7.15, pCO2 of 55 and a pO2 of 64. She was intubated due to progressive respiratory distress apparently her daughter gave the informed consent for intubation. At present, she is on assist control mode, on a rate of 20, 40% FiO2 and 5 of PEEP. ABG showed a pH of 7.28, pCO2 of 37, a pO2 of 89. Her BUN and creatinine 38 and 1.6 with bicarbonate of 17. Her LFTs are elevated. Albumin is only 1.7. Chest x-ray shows evidence of congestive heart failure. INR 1.2. I have spoken to patient's sister at the bedside. PAST MEDICAL HISTORY: Extensive including history of severe cardiomyopathy with an EF of 10% to 15%, history of noncompliance, history of LV thrombus, history of hypertension, polysubstance abuse, chronic anticoagulation, hyperlipidemia, depression, peripheral neuropathy, obesity, history of tobacco use. PAST SURGICAL HISTORY: Pacemaker, cholecystectomy and . FAMILY HISTORY: Unknown. ALLERGIES: PENICILLIN. MEDICATIONS: Reviewed as listed in the [facility] including Levaquin, meropenem, daptomycin, Levophed as well as Lovenox. REVIEW OF SYSTEMS: Unable to obtain from the patient. PHYSICAL EXAMINATION: VITAL SIGNS: Reviewed. T-max of 102.6. Pulse ox is 100% on current FiO2. GENERAL: I did the visual exam and she is currently sedated with the ventilator. She has large patches of rash and necrotic skin on her abdomen as well as lower extremities. LABORATORY DATA: Reviewed. COVID is negative. Toxicology screen positive for opiates as well as meth. BUN 38 and creatinine was 1.6. LFTs are abnormal. INR 2.2. White cell count 13.7, platelets are 139. IMPRESSION: 1. Acute hypoxic and hypercapnic respiratory failure secondary to multifactorial etiologies including combination of cardiogenic and septic shock. 2. The patient with severe cardiomyopathy with an EF of 10% to 15% and has combined systolic and diastolic heart failure. Being followed at and was determined end-stage heart failure and recommended hospice. 3. LV thrombus, on Coumadin at home. 4. Polysubstance abuse. Her urine drug screen is still positive for meth. 5. Acute kidney injury. 6. Abnormal liver function test due to shock. 7. Cannot exclude ischemic stroke. 8. Diffuse rash. Could be Coumadin-induced skin necrosis versus exfoliative dermatitis vs related to sepsis. 9. Severe protein-calorie malnutrition. 10. Underlying tobacco use with COPD suspected. 11. Metabolic acidosis. 12. Un Equal pupil size, needs ct head RECOMMENDATIONS: 1. I have discussed with the patient's sister along with Cardiology, RN and RT. She is critically ill. At this time, continue present ventilator support. 2. Continue vasopressor support. 3. Broad-spectrum antibiotic per Infectious Disease. 4. Monitor the rash. 5. May need CT of the head to rule out any HAND ALTERATIONS SEAMSTRESS bleed. 6. Continue Lovenox at present. Anticoagulation per Cardiology. 7. Follow a liver function test. 8. Prognosis is extremely grim. I have talked to the sister at bedside, I have recommended DNR. The patient's daughter the one who consented for full mechanical ventilation. We will approach her as well. 9. Continue present care in the meantime. Chart reviewed, imaging studies reviewed. Critical care time 39 minutes. NAYANA ROME MD DR: ALEE/judy JOB#: [id number] / [id number]
--- NOTE | 2020-06-16 12:31 | NUR ---
Wound/Ostomy Care Wound Type/Assessment: Open blisters and widespread bruising/mottling with edema to abdomen, buttocks, thighs Treatment Recommendations/Plan: A&D ointment applied to open blisters, skin prep applied to intact blisters. Education provided: Pt on ventilator Offloading surface/device: turn Q2H with wedge, ICU bed, float heels on pillows Recommended Referrals/Tests: na Discharge Recommendations for dressings: continue as above noted to protect blisters and underlying skin. WC will follow up later this week
[2020-06-16] MEDS: MILRINONE 20MG/100ML PREMIX 100 ML IV PRN (12:44)
[2020-06-16] MEDS ORDERED: SODIUM BICARB ADULT 8.4% 50 MEQ/50 ML DISP.SYRIN. ONE (12:49)
[2020-06-16] MEDS ORDERED: SODIUM BICARB ADULT 8.4% 50 MEQ/50 ML DISP.SYRIN. IV ONE (13:15)
[2020-06-16] MEDS: MEROPENEM 500 MG in IV NORMAL SALINE 50ML 50 ML IV SCH ×2 (13:50→21:42)
--- NOTE | 2020-06-16 13:56 | PDOC ---
[employer] PROGRESS NOTE Date of Service DOS: DATE: 06/16/20 TIME: 13:52 Chief Complaint Chief Complaint Acute respiratory failure with hypercapnia and hypoxia - likely related to sepsis possibly from likely gram negative pneumonia. Will cont vent support, consult pulm. Wean as tolerated Septic shock - not responsive to fluid bolus, initiated on pressors. Will stop vasopressin and attempt to wean off of Levophed. We will continue with daptomycin, Levaquin, and meropenem per ID LARISSA - likely vasomotor nephropathy - no renal disease per family, normal Cr 4 years ago here. Given weight based bolus of normal saline, but with h/o CHF with unknown EF currently will be judicious about fluids Metabolic acidosis - due to lactic acidosis likely from septic shock and hypoxemia. Will monitor Cirrhosis with Transaminitis - possibly some mild shock liver with sepsis. Does have h/o cirrhosis, details are unknown. We will repeat LFTs tomorrow H/o CVA (left-sided residual deficits), chronic back pain, HTN Systolic CHF s/p AICD placement - unknown EF - on metoprolol Bumex 2 mg twice daily Eliquis Aldactone ASA. Has [facility] f/u outpatient Amphetamine positive UDS - with concerning needles burt in multiple locations. Apparently she was revoked from hospice due to breaking her narcotic contract Gluteal abscess - will continue vancomycin, wound care, ID consult Chronic pain - on methadone outpatient apparently FEN - NPO PPX - Eliquis. Will place on lovenox for now FULL CODE Dispo - inpatient ICU History of Present Illness History of Present Illness 06/16/2020 No acute events overnight. Fever 102.7. Will stop vasopressin and attempt to wean Levophed. Map goals of 60. Pending cardiology, nephrology, pulmonology recommendations. We will continue to observe mottling of the skin.> 50% time spent in patient chart, labs, and imaging review and in discussion with RN and SW 49 year old female w/ PMHx CVA (left-sided residual deficits), chronic back pain, HTN, systolic CHF s/p AICD placement, cirrhosis who presents via private vehicle with her daughter with 2 days of mottling to bilateral knees, upper and inner thigh as well as nausea and vomiting, fatigue, and lethargy redness. She was also noted with rash on her abdomen and under right breast. She rated her pain 10 out of 10, was in significant respiratory distress while initial ED H&P was being taken. Patient told ED she lives with one of her daughters, but not the daughter who brought her here. She also noted that a year ago she was on hospice for her CHF but after AICD placement and improved and has since been off hospice. She follows with [facility]. Chest radiograph with bilateral opacities and left-sided AICD noted. CT abdomen with dilatation of the colon, diffuse edema to the soft tissues, cardiomegaly and at the lung bases there is patchy opacity seen. EKG sinus tachycardia with incomplete left bundle branch block right axis deviation Initial vital signs temperature 97.5 F heart rate 122 bpm blood pressure 90/64 respiratory rate 27. She continued to tire out throughout interview and had worsening confusion. An ABG was performed showing pH 7.15 PCO2 55 and PaO2 of 64 due to her progressive respiratory distress decision to intubate after informed consent from patient and daughter. Right femoral central line placed emergently. WBC 11.2, Hb 14.9, platelets 203, NA 135, K3.7, BUN 36, CR 1.3, glucose 60 bilirubin 4.4, AST 220, ALT 131, alk phos 412, albumin 2, lipase 14, troponin 0, rapid COVID-19 negative, urinalysis with moderate blood. Admitted to ICU for further care. Vitals/I&O Vitals/I&O: Vital Signs Date Time Temp Pulse Resp B/P (MAP) Pulse Ox O2 Delivery O2 Flow Rate FiO2 06/16/20 12:50 97 Ventilator 06/16/20 10:30 100.6 118 20 103/55 (71) 100.6 I & O 06/15/20 06/15/20 06/16/20 15:00 23:00 07:00 Intake Total 1000 ml 1749.8 ml 1096 ml Output Total 80 ml 480 ml Balance 1000 ml 1669.8 ml 616 ml Physical Exam Physical Exam: Sedated and intubated General: No acute distress Heart: Regular rate Abdomen: Normal bowel sounds, Soft Extremities: No clubbing Skin: Other (VIOLACEOUS SKIN LESION DIFFUSELY THROUGH OUT HER VENTRAL AREA and on her extremities) Labs Labs: Laboratory Tests Test 06/15/20 15:55 06/15/20 16:00 06/15/20 16:55 06/15/20 16:59 Lactic Acid Level 4.2 mmol/L (0.4-2.0) O2 Saturation 100 % (92-99) Arterial Blood pH 7.20 (7.35-7.45) Arterial Blood pCO2 at Patient Temp 38 mmHg (35-46) Arterial Blood pO2 at Patient Temp 408 mmHg (75-108) Arterial Blood HCO3 15 mmol/L (21-28) Arterial Blood Base Excess -13 mmol/L (-3-3) FiO2 100 Urine Opiates Screen Pos (NEG) Urine Methadone Screen Neg (NEG) Urine Barbiturates Neg (NEG) Urine Phencyclidine Screen Neg (NEG) Urine Amphetamine/Methamphetamine Pos (NEG) Urine Benzodiazepines Screen Neg (NEG) Urine Cocaine Screen Neg (NEG) Urine Cannabinoids Screen Neg (NEG) Urine Ethyl Alcohol Neg (NEG) Glucose (Fingerstick) 76 mg/dL (70-99) Test 06/15/20 21:03 06/15/20 21:17 06/16/20 00:18 06/16/20 05:30 Glucose (Fingerstick) 59 mg/dL (70-99) 151 mg/dL (70-99) 79 mg/dL (70-99) 64 mg/dL (70-99) White Blood Count 13.7 x10^3/uL (4.0-11.0) Red Blood Count 3.85 x10^6/uL (3.50-5.40) Hemoglobin 11.4 g/dL (12.0-15.5) Hematocrit 36.5 % (36.0-47.0) Mean Corpuscular Volume 95 fL (79-100) Mean Corpuscular Hemoglobin 30 pg (25-35) Mean Corpuscular Hemoglobin Concent 31 g/dL (31-37) Red Cell Distribution Width 18.1 % (11.5-14.5) Platelet Count 139 x10^3/uL (140-400) Neutrophils (%) (Auto) 91 % (31-73) Lymphocytes (%) (Auto) 3 % (24-48) Monocytes (%) (Auto) 4 % (0-9) Eosinophils (%) (Auto) 2 % (0-3) Basophils (%) (Auto) 0 % (0-3) Neutrophils # (Auto) 12.5 x10^3/uL (1.8-7.7) Lymphocytes # (Auto) 0.4 x10^3/uL (1.0-4.8) Monocytes # (Auto) 0.5 x10^3/uL (0.0-1.1) Eosinophils # (Auto) 0.3 x10^3/uL (0.0-0.7) Basophils # (Auto) 0.0 x10^3/uL (0.0-0.2) Segmented Neutrophils % 41 % (35-66) Band Neutrophils % 38 % (0-9) Lymphocytes % 2 % (24-48) Monocytes % 4 % (0-10) Eosinophils % 2 % (0-5) Metamyelocytes % 9 % (0-0) Myelocytes % 4 % (0-0) Nucleated Red Blood Cells 1 Toxic Granulation Marked Platelet Estimate Adequate (ADEQUATE) Anisocytosis Slight Sodium Level 136 mmol/L (136-145) Potassium Level 4.8 mmol/L (3.5-5.1) Chloride Level 104 mmol/L (98-107) Carbon Dioxide Level 17 mmol/L (21-32) Anion Gap 15 (6-14) Blood Urea Nitrogen 38 mg/dL (7-20) Creatinine 1.6 mg/dL (0.6-1.0) Estimated GFR (Cockcroft-Gault) 34.4 BUN/Creatinine Ratio 24 (6-20) Glucose Level 63 mg/dL (70-99) Calcium Level 7.0 mg/dL (8.5-10.1) Total Bilirubin 4.4 mg/dL (0.2-1.0) Aspartate Amino Transf (AST/SGOT) 248 U/L (15-37) Alanine Aminotransferase (ALT/SGPT) 150 U/L (14-59) Alkaline Phosphatase 246 U/L (46-116) Total Protein 5.5 g/dL (6.4-8.2) Albumin 1.7 g/dL (3.4-5.0) Albumin/Globulin Ratio 0.4 (1.0-1.7) Test 06/16/20 05:41 06/16/20 08:45 Glucose (Fingerstick) 159 mg/dL (70-99) O2 Saturation 96 % (92-99) Arterial Blood pH 7.28 (7.35-7.45) Arterial Blood pCO2 at Patient Temp 37 mmHg (35-46) Arterial Blood pO2 at Patient Temp 89 mmHg (75-108) Arterial Blood HCO3 17 mmol/L (21-28) Arterial Blood Base Excess -9 mmol/L (-3-3) FiO2 40%/ ac 20 vt 450 pe Assessment and Plan Assessmemt and Plan Problems Medical Problems: (1) Ileus Status: Acute (2) Person under investigation for COVID-19 Status: Acute (3) Pneumonia Status: Acute (4) Sepsis Status: Acute (5) Severe sepsis Status: Acute (6) UTI (urinary tract infection) Status: Acute Comment Review of Relevant I have reviewed the following items shena (where applicable) has been applied. Medications: Current Medications Medications (Trade) Dose Ordered Sig/Bradley Route PRN Reason Start Time Stop Time Status Last Admin Dose Admin Dobutamine HCl/ Dextrose 250 ml @ 4.2 mls/hr 1X ONCE IV 06/15/20 15:00 06/18/20 02:31 06/15/20 15:40 Vasopressin 20 unit/Dextrose 101 ml @ 12 mls/hr CONT PRN IV SEE I/O RECORD 06/15/20 16:15 06/16/20 08:15 Phenylephrine HCl 50 mg/Sodium Chloride 255 ml @ 10.71 mls/ hr CONT PRN IV SEE I/O RECORD 06/15/20 16:15 06/15/20 17:05 Fentanyl Citrate 30 ml @ 2.5 mls/hr CONT PRN IV SEE PROTOCOL 06/15/20 16:15 06/16/20 00:39 Midazolam HCl 100 ml @ 1 mls/hr CONT PRN IV SEE PROTOCOL 06/15/20 16:15 06/15/20 17:06 Acetaminophen (Tylenol) 650 mg PRN Q6HRS PRN PEG MILD PAIN / TEMP > 100.3'F 06/15/20 16:45 06/16/20 07:36 Sodium Bicarbonate (Sodium Bicarb Adult 8.4% Syr) 100 meq 1X ONCE IV 06/15/20 17:30 06/15/20 17:31 DC 06/15/20 17:07 Rocuronium [place] (Zemuron) 50 mg 1X ONCE IV 06/15/20 17:15 06/15/20 17:16 DC 06/15/20 15:10 Succinylcholine Chloride (Anectine) 100 mg 1X ONCE IV 06/15/20 17:15 06/15/20 17:16 DC 06/15/20 14:30 Etomidate (Amidate) 20 mg 1X ONCE IV 06/15/20 17:15 06/15/20 17:16 DC 06/15/20 14:30 Albumin Human 500 ml @ 125 mls/hr PRN DAILY PRN IV Hypotension 06/15/20 17:30 06/15/20 18:10 Vancomycin HCl 1.5 gm/Sodium Chloride 500 ml @ 250 mls/hr 1X ONCE IV 06/15/20 18:00 06/15/20 19:59 DC 06/15/20 18:00 Enoxaparin Sodium (Lovenox 80mg Syringe) 80 mg Q12HR SQ 06/15/20 20:00 06/15/20 20:20 Norepinephrine Bitartrate 8 mg/ Dextrose 258 ml @ 13.545 mls/ hr CONT PRN IV PER PROTOCOL 06/15/20 21:00 06/16/20 08:32 Dextrose (Dextrose 50%-Water Syringe) 12.5 gm PRN Q15MIN PRN IV SEE COMMENTS 06/15/20 21:15 06/16/20 13:49 Vancomycin HCl (Vanco Per Pharmacy) 1 each PRN DAILY PRN MC SEE COMMENTS 06/16/20 07:45 06/16/20 08:36 DC 06/16/20 07:48 Meropenem 500 mg/ Sodium Chloride 50 ml @ 100 mls/hr Q8HRS IV 06/16/20 14:00 06/16/20 13:50 Daptomycin 400 mg/ Sodium Chloride 50 ml @ 100 mls/hr Q24H IV 06/16/20 10:00 06/16/20 09:18 Milrinone Lactate/ Dextrose 100 ml @ 3.071 mls/ hr CONT PRN IV SEE I/O RECORD 06/16/20 12:15 06/16/20 12:44 Sodium Bicarbonate (Sodium Bicarb Adult 8.4% Syr) 100 meq 1X ONCE IV 06/16/20 13:15 06/16/20 13:16 DC 06/16/20 13:15 Justifications for Admission Other Justification JENNIFER BOYD MD Jun 16, 2020 13:56
--- NOTE | 2020-06-16 15:48 | NUR ---
SW following today for discharge planning. Spoke with RN and reviewed chart. Pt COVID negative. Pt on a ventilator. Pt on IV Meropenem and IV Daptomycin. Wound care following. Pt self-pay.
--- NOTE | 2020-06-16 16:10 | RAD ---
Exam performed: CT scan of the head without contrast. Date of Service: 06/16/2020. Comparison: None available CT head without contrast from 02/06/2014. Clinical History: Suspected bleed. Technique: Helical acquisitions are obtained from the foramen magnum to the vertex without intravenou s administration of contrast. Findings: The ventricles are midline without evidence of dilatation. Normal quevedo-white differentiation is maint ained. There is no extra axial fluid collection, intraparenchymal hemorrhage or mass lesion. The vi sualized portions of the orbits, paranasal sinuses and the mastoid air cells appear clear. The yazan rium is intact. Impression: 1. No acute intracranial process detected. PQRS Compliance Statement: One or more of the following individualized dose reduction techniques were utilized for this examinat ion: 1. Automated exposure control 2. Adjustment of the mA and/or kV according to patient size 3. Use of iterative reconstruction technique Electronically signed by: Anjana Brown MD (06/16/2020 4:08 PM) [id number]
[2020-06-16] MEDS ORDERED: IV DEXTROSE 10% 1,000 ML IV SCH (16:30)
[2020-06-16] MEDS: SODIUM BICARBONATE VIAL 150 MEQ in IV DEXTROSE 5% 1,000 ML IV SCH (16:42)
[2020-06-16] MEDS: MIDAZOLAM 100mg/100ml NS BAG 100 ML IV PRN (17:00)
[2020-06-16] MEDS ORDERED: VANCOMYCIN 1.25 GM in IV NORMAL SALINE 250ML 250 ML IV SCH (18:00)
[2020-06-16 18:45] LABS: PROTHROMBIN TIME PATIENT 26.7 SEC (11.7-14.0)
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
[2020-06-17] VITALS (24 sets, daily range): BP systolic 98–122; BP diastolic 57–78
[2020-06-17] MEDS: NOREPINEPHRINE VIAL 8 MG in IV DEXTROSE 5% 250 ML IV PRN ×5 (04:01→23:10)
[2020-06-17] MEDS: MEROPENEM 500 MG in IV NORMAL SALINE 50ML 50 ML IV SCH ×2 (06:16→14:04)
[2020-06-17 06:34] LABS: MAGNESIUM 1.7 mg/dL (1.8-2.4); PHOSPHORUS 4.5 mg/dL (2.6-4.7)
[2020-06-17] MEDS: SODIUM BICARBONATE VIAL 150 MEQ in IV DEXTROSE 5% 1,000 ML IV SCH (06:40)
[2020-06-17 07:35] LABS: BASO % 0 % (0-3); EOS # 0.1 x10^3/uL (0.0-0.7); EOS % 1 % (0-3); HEMATOCRIT 34.6 % (36.0-47.0); HEMOGLOBIN 10.7 g/dL (12.0-15.5); LYMPH # 0.7 x10^3/uL (1.0-4.8); LYMPH % 4 % (24-48); MEAN CORPUSCULAR HEMOGLOBIN 29 pg (25-35); MEAN CORPUSCULAR HGB CONC 31 g/dL (31-37); MEAN CORPUSCULAR VOLUME 94 fL (79-100); MONO # 0.5 x10^3/uL (0.0-1.1); MONO % 3 % (0-9); NEUT # 14.6 x10^3/uL (1.8-7.7); NEUT % 91 % (31-73); PLATELET COUNT 78 x10^3/uL (140-400); RED BLOOD COUNT 3.66 x10^6/uL (3.50-5.40); RED CELL DISTRIBUTION WIDTH 17.6 % (11.5-14.5)
[2020-06-17 07:45] LABS: ALBUMIN 1.2 g/dL (3.4-5.0); ALBUMIN/GLOBULIN RATIO 0.3 (1.0-1.7); CALCIUM 6.7 mg/dL (8.5-10.1); CREATININE 1.9 mg/dL (0.6-1.0); GFR 28.2; POTASSIUM 4.4 mmol/L (3.5-5.1); TOTAL BILIRUBIN 5.8 mg/dL (0.2-1.0)
--- NOTE | 2020-06-17 07:51 | PDOC ---
Infectious Disease Note Subjective Subjective pt is intubated on vent ROS ROS no n/v/d/ Vital Sign Vital Signs Vital Signs Date Time Temp Pulse Resp B/P (MAP) Pulse Ox O2 Delivery O2 Flow Rate FiO2 06/17/20 07:00 101.3 113 20 108/57 (74) 99 Ventilator 101.3 Physical Exam PHYSICAL EXAM GENERAL: Sedated, orally intubated female, not in distress. VITAL SIGNS: stable HEENT: Right pupil is dilated and fixed. Left pupil is normal and reacting well. Orally intubated. NECK: Supple, no JVP, no lymphadenopathy. LUNGS: Clear. HEART: S1, S2 regular. No gallop or murmur. ABDOMEN: Soft, nontender, no organomegaly. EXTREMITIES: No edema or cyanosis. The patient does have what appears to be subacute hemorrhage into the breast, abdomen and thigh and there is discoloration on the left gluteal area with even the puncture wounds into that area, these are external hemorrhoids. now those areas blistering and breaking NEUROLOGIC: The patient is sedated, orally intubated. 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 Labs Lab Laboratory Tests Test 06/16/20 08:45 06/16/20 13:48 06/16/20 16:15 06/16/20 18:01 O2 Saturation 96 % (92-99) Arterial Blood pH 7.28 (7.35-7.45) Arterial Blood pCO2 at Patient Temp 37 mmHg (35-46) Arterial Blood pO2 at Patient Temp 89 mmHg (75-108) Arterial Blood HCO3 17 mmol/L (21-28) Arterial Blood Base Excess -9 mmol/L (-3-3) FiO2 40%/ ac 20 vt 450 pe Glucose (Fingerstick) 69 mg/dL (70-99) 66 mg/dL (70-99) 117 mg/dL (70-99) Test 06/16/20 18:24 06/17/20 00:11 06/17/20 05:40 06/17/20 05:45 Prothrombin Time 26.7 SEC (11.7-14.0) Prothromb Time International Ratio 2.5 (0.8-1.1) Glucose (Fingerstick) 132 mg/dL (70-99) 84 mg/dL (70-99) White Blood Count 16.0 x10^3/uL (4.0-11.0) Red Blood Count 3.66 x10^6/uL (3.50-5.40) Hemoglobin 10.7 g/dL (12.0-15.5) Hematocrit 34.6 % (36.0-47.0) Mean Corpuscular Volume 94 fL (79-100) Mean Corpuscular Hemoglobin 29 pg (25-35) Mean Corpuscular Hemoglobin Concent 31 g/dL (31-37) Red Cell Distribution Width 17.6 % (11.5-14.5) Platelet Count 78 x10^3/uL (140-400) Neutrophils (%) (Auto) 91 % (31-73) Lymphocytes (%) (Auto) 4 % (24-48) Monocytes (%) (Auto) 3 % (0-9) Eosinophils (%) (Auto) 1 % (0-3) Basophils (%) (Auto) 0 % (0-3) Neutrophils # (Auto) 14.6 x10^3/uL (1.8-7.7) Lymphocytes # (Auto) 0.7 x10^3/uL (1.0-4.8) Monocytes # (Auto) 0.5 x10^3/uL (0.0-1.1) Eosinophils # (Auto) 0.1 x10^3/uL (0.0-0.7) Basophils # (Auto) 0.0 x10^3/uL (0.0-0.2) Sodium Level 136 mmol/L (136-145) Potassium Level 4.4 mmol/L (3.5-5.1) Chloride Level 101 mmol/L (98-107) Carbon Dioxide Level 22 mmol/L (21-32) Anion Gap 13 (6-14) Blood Urea Nitrogen 45 mg/dL (7-20) Creatinine 1.9 mg/dL (0.6-1.0) Estimated GFR (Cockcroft-Gault) 28.2 Glucose Level 122 mg/dL (70-99) Calcium Level 6.8 mg/dL (8.5-10.1) Phosphorus Level 4.5 mg/dL (2.6-4.7) Magnesium Level 1.7 mg/dL (1.8-2.4) Micro Microbiology 06/15/20 Urine Culture - Preliminary, Resulted 06/15/20 Blood Culture - Final, Complete Objective Assessment IMPRESSION: 1. Fever. 2. Leukocytosis. 3. Hypotension, requiring vasopressor support. 4. Respiratory failure requiring ventilatory support. 5. Acute kidney injury. 6. Elevated liver function tests. 7. Multiorgan system involvement. 8. Discoloration of the skin on the front, there is probably subcute hemorrhage and there is discoloration of the left gluteal area where there are some puncture burt. 9. History of congestive heart failure, has AICD. 10. History of cerebrovascular accident. 11. History of drug use. Plan Plan of Care cont antibiotics cont supportive care family to withdraw care soon CRISTIAN OAKLEY MD Jun 17, 2020 07:51
[2020-06-17 08:08] LABS: BASE EXCESS ABG -5 mmol/L (-3-3); CORRECTED PCO2 ABG 45 mmHg; CORRECTED PO2 ABG 82 mmHg; HCO3 ABG 21 mmol/L (21-28); SAT O2 ABG 94 % (92-99)
[2020-06-17 08:35] LABS: PARTIAL THROMBOPLASTIN TIME 44 SEC (24-38); PROTHROMBIN TIME PATIENT 24.1 SEC (11.7-14.0)
[2020-06-17] MEDS: VASOPRESSIN 20 UNIT in IV DEXTROSE 5% 100ML 100 ML IV PRN ×2 (08:37→15:39)
[2020-06-17 09:01] LABS: D-DIMER > 20.00 ug/mlFEU (0.00-0.50)
[2020-06-17 09:02] LABS: PLATELET COUNT 78 x10^3/uL (140-400)
[2020-06-17 09:10] LABS: PCO2 ABG 45 mmHg (35-46); PO2 ABG 82 mmHg (75-108)
[2020-06-17 09:11] LABS: FIO2 ABG 40% VENT
[2020-06-17] MEDS: DAPTOmycin (GENERIC) IVPB 400 MG in IV NORMAL SALINE 50ML 50 ML IV SCH (09:46)
[2020-06-17 09:50] LABS: % ATYL 2 % (0-0); % BANDS 44 % (0-9); % LYMPHS 7 % (24-48); % METAS 16 % (0-0); % MONOS 2 % (0-10); % MYELOS 1 % (0-0); % SEGS 28 % (35-66); PLT ESTIMATE DECREASED (ADEQUATE)
[2020-06-17 09:51] LABS: NUCLEATED RBC 1; POLYCHROMASIA SLIGHT; TOXIC GRANULATION MOD; TOXIC VACUOLATION MOD
[2020-06-17 09:52] LABS: ANISOCYTOSIS SLIGHT
--- NOTE | 2020-06-17 11:01 | PDOC ---
[employer] PROGRESS NOTE Date of Service DOS: DATE: 06/17/20 TIME: 10:56 Chief Complaint Chief Complaint Acute respiratory failure with hypercapnia and hypoxia - likely related to sepsis possibly from likely gram negative pneumonia. Will cont vent support, consult pulm. Wean as tolerated Septic shock - not responsive to fluid bolus, initiated on pressors. We will continue with milrinone and Levophed to maintain maps greater than 60. We will continue with daptomycin, Levaquin, and meropenem per ID LARISSA - likely vasomotor nephropathy - no renal disease per family, normal Cr 4 years ago here. Given weight based bolus of normal saline, but with h/o CHF with unknown EF currently will be judicious about fluids Metabolic acidosis - due to lactic acidosis likely from septic shock and hypoxemia. Will monitor Cirrhosis with Transaminitis - possibly some mild shock liver with sepsis. Does have h/o cirrhosis, details are unknown. We will repeat LFTs tomorrow H/o CVA (left-sided residual deficits), chronic back pain, HTN Systolic CHF s/p AICD placement - unknown EF - on metoprolol Bumex 2 mg twice daily Eliquis Aldactone ASA. Has [facility] f/u outpatient Amphetamine positive UDS - with concerning needles burt in multiple locations. 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 Will place on lovenox for now FULL CODE Dispo -poor prognosis pending withdrawal care. Inpatient ICU History of Present Illness History of Present Illness 06/17/2020 No acute events overnight. Patient is on a cooling blanket with max temperature currently is 99.0, T-max overnight is 102 F.. Patient is currently on vent settings of 20/450/40/5. Patient's chart, labs, images were reviewed and discussed with RN 06/16/2020 No acute events overnight. Fever 102.7. Will stop vasopressin and attempt to wean Levophed. Map goals of 60. Pending cardiology, nephrology, pulmonology recommendations. We will continue to observe mottling of the skin.> 50% time spent in patient chart, labs, and imaging review and in discussion with RN and FÁTIMA 49 year old female w/ PMHx CVA (left-sided residual deficits), chronic back pain, HTN, systolic CHF s/p AICD placement, cirrhosis who presents via private vehicle with her daughter with 2 days of mottling to bilateral knees, upper and inner thigh as well as nausea and vomiting, fatigue, and lethargy redness. She was also noted with rash on her abdomen and under right breast. She rated her pain 10 out of 10, was in significant respiratory distress while initial ED H&P was being taken. Patient told ED she lives with one of her daughters, but not the daughter who brought her here. She also noted that a year ago she was on hospice for her CHF but after AICD placement and improved and has since been off hospice. She follows with [facility]. Chest radiograph with bilateral opacities and left-sided AICD noted. CT abdomen with dilatation of the colon, diffuse edema to the soft tissues, cardiomegaly and at the lung bases there is patchy opacity seen. EKG sinus tachycardia with incomplete left bundle branch block right axis deviation Initial vital signs temperature 97.5 F heart rate 122 bpm blood pressure 90/64 respiratory rate 27. She continued to tire out throughout interview and had worsening confusion. An ABG was performed showing pH 7.15 PCO2 55 and PaO2 of 64 due to her progressive respiratory distress decision to intubate after informed consent from patient and daughter. Right femoral central line placed emergently. WBC 11.2, Hb 14.9, platelets 203, NA 135, K3.7, BUN 36, CR 1.3, glucose 60 bilirubin 4.4, AST 220, ALT 131, alk phos 412, albumin 2, lipase 14, troponin 0, rapid COVID-19 negative, urinalysis with moderate blood. Admitted to ICU for further care. Vitals/I&O Vitals/I&O: Vital Signs Date Time Temp Pulse Resp B/P (MAP) Pulse Ox O2 Delivery O2 Flow Rate FiO2 06/17/20 10:00 100.9 114 20 106/67 (80) 99 Ventilator 100.9 I & O 06/16/20 06/16/20 06/17/20 15:00 23:00 07:00 Intake Total 80 ml 429 ml 1939 ml Output Total 55 ml 200 ml 365 ml Balance 25 ml 229 ml 1574 ml Physical Exam Physical Exam: GENERAL: Sedated, orally intubated female, not in distress. VITAL SIGNS: stable HEENT: Right pupil is dilated and fixed. Left pupil is normal and reacting well. Orally intubated. NECK: Supple, no JVP, no lymphadenopathy. LUNGS: Clear. HEART: S1, S2 regular. No gallop or murmur. ABDOMEN: Soft, nontender, no organomegaly. EXTREMITIES: No edema or cyanosis. The patient does have what appears to be subacute hemorrhage into the breast, abdomen and thigh and there is discoloration on the left gluteal area with even the puncture wounds into that area, these are external hemorrhoids. now those areas blistering and breaking NEUROLOGIC: The patient is sedated, orally intubated. 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 General: Other (sedated ) Heart: Regular rate (ST) Abdomen: Other (anasarca, ) Extremities: Other (anasarca. Mottling of bilateral hands and feet, which are cool to touch. Bilateral breasts red, swollen. Diffuse ecchymosis. ) Skin: Other (VIOLACEOUS SKIN LESION DIFFUSELY THROUGH OUT HER VENTRAL AREA and on her extremities) Labs Labs: Laboratory Tests Test 06/16/20 13:48 06/16/20 16:15 06/16/20 18:01 06/16/20 18:24 Glucose (Fingerstick) 69 mg/dL (70-99) 66 mg/dL (70-99) 117 mg/dL (70-99) Prothrombin Time 26.7 SEC (11.7-14.0) Prothromb Time International Ratio 2.5 (0.8-1.1) Test 06/17/20 00:11 06/17/20 05:40 06/17/20 05:45 06/17/20 08:06 Glucose (Fingerstick) 132 mg/dL (70-99) 84 mg/dL (70-99) White Blood Count 16.0 x10^3/uL (4.0-11.0) Red Blood Count 3.66 x10^6/uL (3.50-5.40) Hemoglobin 10.7 g/dL (12.0-15.5) Hematocrit 34.6 % (36.0-47.0) Mean Corpuscular Volume 94 fL (79-100) Mean Corpuscular Hemoglobin 29 pg (25-35) Mean Corpuscular Hemoglobin Concent 31 g/dL (31-37) Red Cell Distribution Width 17.6 % (11.5-14.5) Platelet Count 78 x10^3/uL (140-400) 78 x10^3/uL (140-400) Neutrophils (%) (Auto) 91 % (31-73) Lymphocytes (%) (Auto) 4 % (24-48) Monocytes (%) (Auto) 3 % (0-9) Eosinophils (%) (Auto) 1 % (0-3) Basophils (%) (Auto) 0 % (0-3) Neutrophils # (Auto) 14.6 x10^3/uL (1.8-7.7) Lymphocytes # (Auto) 0.7 x10^3/uL (1.0-4.8) Monocytes # (Auto) 0.5 x10^3/uL (0.0-1.1) Eosinophils # (Auto) 0.1 x10^3/uL (0.0-0.7) Basophils # (Auto) 0.0 x10^3/uL (0.0-0.2) Segmented Neutrophils % 28 % (35-66) Band Neutrophils % 44 % (0-9) Lymphocytes % 7 % (24-48) Atypical Lymphocytes % (Manual) 2 % (0-0) Monocytes % 2 % (0-10) Metamyelocytes % 16 % (0-0) Myelocytes % 1 % (0-0) Nucleated Red Blood Cells 1 Toxic Granulation Mod Toxic Vacuolation Mod Dohle Bodies Mod Platelet Estimate Decreased (ADEQUATE) Polychromasia Slight Anisocytosis Slight Sodium Level 135 mmol/L (136-145) Potassium Level 4.4 mmol/L (3.5-5.1) Chloride Level 101 mmol/L (98-107) Carbon Dioxide Level 19 mmol/L (21-32) Anion Gap 15 (6-14) Blood Urea Nitrogen 45 mg/dL (7-20) Creatinine 1.9 mg/dL (0.6-1.0) Estimated GFR (Cockcroft-Gault) 28.2 BUN/Creatinine Ratio 24 (6-20) Glucose Level 120 mg/dL (70-99) Calcium Level 6.7 mg/dL (8.5-10.1) Phosphorus Level 4.5 mg/dL (2.6-4.7) Magnesium Level 1.7 mg/dL (1.8-2.4) Total Bilirubin 5.8 mg/dL (0.2-1.0) Aspartate Amino Transf (AST/SGOT) 119 U/L (15-37) Alanine Aminotransferase (ALT/SGPT) 122 U/L (14-59) Alkaline Phosphatase 239 U/L (46-116) Total Protein 5.0 g/dL (6.4-8.2) Albumin 1.2 g/dL (3.4-5.0) Albumin/Globulin Ratio 0.3 (1.0-1.7) Prothrombin Time 24.1 SEC (11.7-14.0) Prothromb Time International Ratio 2.2 (0.8-1.1) Activated Partial Thromboplast Time 44 SEC (24-38) Fibrinogen 379 mg/dL (200-440) D-Dimer (Dariana) > 20.00 ug/mlFEU Test 06/17/20 09:00 O2 Saturation 94 % (92-99) Arterial Blood pH 7.30 (7.35-7.45) Arterial Blood pH (Temp corrected) 7.30 Arterial Blood pCO2 at Patient Temp 45 mmHg (35-46) Arterial Blood pCO2 (Temp correct) 45 mmHg Arterial Blood pO2 at Patient Temp 82 mmHg (75-108) Arterial Blood pO2 (Temp corrected) 82 mmHg Arterial Blood HCO3 21 mmol/L (21-28) Arterial Blood Base Excess -5 mmol/L (-3-3) FiO2 40% vent Assessment and Plan Assessmemt and Plan Problems Medical Problems: (1) Ileus Status: Acute (2) Person under investigation for COVID-19 Status: Acute (3) Pneumonia Status: Acute (4) Sepsis Status: Acute (5) Severe sepsis Status: Acute (6) UTI (urinary tract infection) Status: Acute Comment Review of Relevant I have reviewed the following items shena (where applicable) has been applied. Medications: Current Medications Medications (Trade) Dose Ordered Sig/Bradley Route PRN Reason Start Time Stop Time Status Last Admin Dose Admin Meropenem 500 mg/ Sodium Chloride 50 ml @ 100 mls/hr Q8HRS IV 06/16/20 14:00 06/17/20 06:16 Milrinone Lactate/ Dextrose 100 ml @ 3.071 mls/ hr CONT PRN IV SEE I/O RECORD 06/16/20 12:15 06/16/20 12:44 Sodium Bicarbonate (Sodium Bicarb Adult 8.4% Syr) 100 meq 1X ONCE IV 06/16/20 13:15 06/16/20 13:16 DC 06/16/20 13:15 Sodium Bicarbonate 150 meq/Dextrose 1,150 ml @ 75 mls/hr [id number] IV 06/16/20 17:00 06/17/20 06:40 Justifications for Admission Other Justification JENNIFER BOYD MD Jun 17, 2020 11:01
--- NOTE | 2020-06-17 11:24 | PDOC ---
Renal-Progress Notes Subjective Notes Notes ON THE VENT History of Present Illness Hx of present illness VERY ILL Vitals Vitals Vital Signs Date Time Temp Pulse Resp B/P (MAP) Pulse Ox O2 Delivery O2 Flow Rate FiO2 06/17/20 11:00 100.9 114 20 107/68 (81) 99 Ventilator 100.9 Weight Weight [ ] I.O. Intake and Output Intake and Output 06/17/20 07:00 Intake Total 2448 ml Output Total 620 ml Balance 1828 ml Intake IV Total 2448 ml Output Urine Total 620 ml Labs Labs Laboratory Tests Test 06/16/20 13:48 06/16/20 16:15 06/16/20 18:01 06/16/20 18:24 Glucose (Fingerstick) 69 mg/dL (70-99) 66 mg/dL (70-99) 117 mg/dL (70-99) Prothrombin Time 26.7 SEC (11.7-14.0) Prothromb Time International Ratio 2.5 (0.8-1.1) Test 06/17/20 00:11 06/17/20 05:40 06/17/20 05:45 06/17/20 08:06 Glucose (Fingerstick) 132 mg/dL (70-99) 84 mg/dL (70-99) White Blood Count 16.0 x10^3/uL (4.0-11.0) Red Blood Count 3.66 x10^6/uL (3.50-5.40) Hemoglobin 10.7 g/dL (12.0-15.5) Hematocrit 34.6 % (36.0-47.0) Mean Corpuscular Volume 94 fL (79-100) Mean Corpuscular Hemoglobin 29 pg (25-35) Mean Corpuscular Hemoglobin Concent 31 g/dL (31-37) Red Cell Distribution Width 17.6 % (11.5-14.5) Platelet Count 78 x10^3/uL (140-400) 78 x10^3/uL (140-400) Neutrophils (%) (Auto) 91 % (31-73) Lymphocytes (%) (Auto) 4 % (24-48) Monocytes (%) (Auto) 3 % (0-9) Eosinophils (%) (Auto) 1 % (0-3) Basophils (%) (Auto) 0 % (0-3) Neutrophils # (Auto) 14.6 x10^3/uL (1.8-7.7) Lymphocytes # (Auto) 0.7 x10^3/uL (1.0-4.8) Monocytes # (Auto) 0.5 x10^3/uL (0.0-1.1) Eosinophils # (Auto) 0.1 x10^3/uL (0.0-0.7) Basophils # (Auto) 0.0 x10^3/uL (0.0-0.2) Segmented Neutrophils % 28 % (35-66) Band Neutrophils % 44 % (0-9) Lymphocytes % 7 % (24-48) Atypical Lymphocytes % (Manual) 2 % (0-0) Monocytes % 2 % (0-10) Metamyelocytes % 16 % (0-0) Myelocytes % 1 % (0-0) Nucleated Red Blood Cells 1 Toxic Granulation Mod Toxic Vacuolation Mod Dohle Bodies Mod Platelet Estimate Decreased (ADEQUATE) Polychromasia Slight Anisocytosis Slight Sodium Level 135 mmol/L (136-145) Potassium Level 4.4 mmol/L (3.5-5.1) Chloride Level 101 mmol/L (98-107) Carbon Dioxide Level 19 mmol/L (21-32) Anion Gap 15 (6-14) Blood Urea Nitrogen 45 mg/dL (7-20) Creatinine 1.9 mg/dL (0.6-1.0) Estimated GFR (Cockcroft-Gault) 28.2 BUN/Creatinine Ratio 24 (6-20) Glucose Level 120 mg/dL (70-99) Calcium Level 6.7 mg/dL (8.5-10.1) Phosphorus Level 4.5 mg/dL (2.6-4.7) Magnesium Level 1.7 mg/dL (1.8-2.4) Total Bilirubin 5.8 mg/dL (0.2-1.0) Aspartate Amino Transf (AST/SGOT) 119 U/L (15-37) Alanine Aminotransferase (ALT/SGPT) 122 U/L (14-59) Alkaline Phosphatase 239 U/L (46-116) Total Protein 5.0 g/dL (6.4-8.2) Albumin 1.2 g/dL (3.4-5.0) Albumin/Globulin Ratio 0.3 (1.0-1.7) Prothrombin Time 24.1 SEC (11.7-14.0) Prothromb Time International Ratio 2.2 (0.8-1.1) Activated Partial Thromboplast Time 44 SEC (24-38) Fibrinogen 379 mg/dL (200-440) D-Dimer (Dariana) > 20.00 ug/mlFEU Test 06/17/20 09:00 O2 Saturation 94 % (92-99) Arterial Blood pH 7.30 (7.35-7.45) Arterial Blood pH (Temp corrected) 7.30 Arterial Blood pCO2 at Patient Temp 45 mmHg (35-46) Arterial Blood pCO2 (Temp correct) 45 mmHg Arterial Blood pO2 at Patient Temp 82 mmHg (75-108) Arterial Blood pO2 (Temp corrected) 82 mmHg Arterial Blood HCO3 21 mmol/L (21-28) Arterial Blood Base Excess -5 mmol/L (-3-3) FiO2 40% vent Micro Micro Microbiology 06/15/20 Urine Culture - Preliminary, Resulted 06/15/20 Blood Culture - Final, Complete Review of Systems Constitutional: yes: other (UNABLE TO OBTAIN) Physical Exam General Appearance: no apparent distress, other (ON THE VENT) Skin: erythema, other (DIFFUSE ERYTHEMA WITH BLISTERS DRAINING) Respiratory: decreased breath sounds Heart: S1S2 Abdomen: soft, other (HYPOACTIVE) Genitourinary: coles catheter Extremities: edema Neurology: other (SEDATED) Assessment Assessment IMP LARISSA WITH CR OF 1.9 MET ACIDOSIS ACUTE RESP FAILURE POLYSUBSTANCE DRUG USE SEPTIC SHOCK LEUCOCYTOSIS CM WITH EF OF 10-15% HX OF LV THROMBUS SKIN LESION-?SKIN BLISTERS-INFECTION PLAN VERY POOR PROGNOSIS OVERALL ANTIBIOTICS PRESSORS AND INOTROPES CARDIOLOGY EVALUATION LOW FLOW VOLUME EXPANSION HCO3 GTT UNLIKELY TO TOLERATE TOO MUCH VOLUME D/W DR OAKLEY AND DR ROME REMAINS CRITICALLY ILL CCT 30 REYNA OHARA MD Jun 17, 2020 11:24
--- NOTE | 2020-06-17 11:45 | PDOC ---
PULMONARY PROGRESS NOTES DATE: 06/17/20 TIME: 11:33 Subjective Remains on vent support 40% and PEEP of 5 on multiple pressors/inotropes fevers overnight Vitals Vital Signs Date Time Temp Pulse Resp B/P (MAP) Pulse Ox O2 Delivery O2 Flow Rate FiO2 06/17/20 11:00 100.9 114 20 107/68 (81) 99 Ventilator 100.9 Comments intubated/sedated Lungs: Clear Cardiovascular: S1, S2 Skin: Other (blister/ecymotic rash ) Labs Laboratory Tests Test 06/15/20 11:40 06/15/20 12:00 06/15/20 12:23 06/15/20 13:40 White Blood Count 11.2 x10^3/uL (4.0-11.0) Red Blood Count 5.00 x10^6/uL (3.50-5.40) Hemoglobin 14.9 g/dL (12.0-15.5) Hematocrit 46.8 % (36.0-47.0) Mean Corpuscular Volume 94 fL (79-100) Mean Corpuscular Hemoglobin 30 pg (25-35) Mean Corpuscular Hemoglobin Concent 32 g/dL (31-37) Red Cell Distribution Width 17.4 % (11.5-14.5) Platelet Count 203 x10^3/uL (140-400) Neutrophils (%) (Auto) 95 % (31-73) Lymphocytes (%) (Auto) 2 % (24-48) Monocytes (%) (Auto) 2 % (0-9) Eosinophils (%) (Auto) 2 % (0-3) Basophils (%) (Auto) 0 % (0-3) Neutrophils # (Auto) 10.6 x10^3/uL (1.8-7.7) Lymphocytes # (Auto) 0.2 x10^3/uL (1.0-4.8) Monocytes # (Auto) 0.2 x10^3/uL (0.0-1.1) Eosinophils # (Auto) 0.2 x10^3/uL (0.0-0.7) Basophils # (Auto) 0.0 x10^3/uL (0.0-0.2) Segmented Neutrophils % 55 % (35-66) Band Neutrophils % 40 % (0-9) Lymphocytes % 5 % (24-48) Platelet Estimate Adequate (ADEQUATE) Giant Platelets Present Polychromasia Present Prothrombin Time 24.5 SEC (11.7-14.0) Prothromb Time International Ratio 2.2 (0.8-1.1) Sodium Level 135 mmol/L (136-145) Potassium Level 3.7 mmol/L (3.5-5.1) Chloride Level 97 mmol/L (98-107) Carbon Dioxide Level 24 mmol/L (21-32) Anion Gap 14 (6-14) Blood Urea Nitrogen 36 mg/dL (7-20) Creatinine 1.3 mg/dL (0.6-1.0) Estimated GFR (Cockcroft-Gault) 43.7 BUN/Creatinine Ratio 28 (6-20) Glucose Level 60 mg/dL (70-99) Lactic Acid Level 4.7 mmol/L (0.4-2.0) Calcium Level 8.2 mg/dL (8.5-10.1) Magnesium Level 1.8 mg/dL (1.8-2.4) Total Bilirubin 4.4 mg/dL (0.2-1.0) Aspartate Amino Transf (AST/SGOT) 220 U/L (15-37) Alanine Aminotransferase (ALT/SGPT) 131 U/L (14-59) Alkaline Phosphatase 412 U/L (46-116) Ammonia < 10 mcmol/L (11-34) Troponin I Quantitative < 0.017 ng/mL (0.000-0.055) Total Protein 6.9 g/dL (6.4-8.2) Albumin 2.0 g/dL (3.4-5.0) Albumin/Globulin Ratio 0.4 (1.0-1.7) Lipase 14 U/L (73-393) Procalcitonin 11.68 ng/mL (0.00-0.10) Urine Collection Type Unknown Urine Color Alborn Urine Clarity Cloudy Urine pH 5.5 (<5.0-8.0) Urine Specific [place] 1.025 (1.000-1.030) Urine Protein 100 mg/dL (NEG-TRACE) Urine Glucose (UA) Negative mg/dL (NEG) Urine Ketones (Stick) Trace mg/dL (NEG) Urine Blood Moderate (NEG) Urine Nitrite Negative (NEG) Urine Bilirubin Moderate (NEG) Urine Urobilinogen Dipstick 2.0 mg/dL (0.2 mg/dL) Urine Leukocyte Esterase Moderate (NEG) Urine RBC Field obscured /HPF (0-2) Urine WBC 20-40 /HPF (0-4) Urine Squamous Epithelial Cells Many /LPF Urine Bacteria Many /HPF (0-FEW) Urine Hyaline Casts Many /HPF Urine Mucus Mod /LPF Coronavirus (PCR) Not detected (Not Detected) SARS-CoV-2 Antigen (Rapid) Negative (NEGATIVE) O2 Saturation 85 % (92-99) Arterial Blood pH 7.15 (7.35-7.45) Arterial Blood pCO2 at Patient Temp 55 mmHg (35-46) Arterial Blood pO2 at Patient Temp 64 mmHg (75-108) Arterial Blood HCO3 19 mmol/L (21-28) Arterial Blood Base Excess -11 mmol/L (-3-3) Oxyhemoglobin 84.2 % Methemoglobin 0.3 % (0.0-1.9) Carbon Monoxide, Quantitative 0.9 % (0.0-1.9) FiO2 3 lpm nc Test 06/15/20 15:55 06/15/20 16:00 06/15/20 16:55 06/15/20 16:59 Lactic Acid Level 4.2 mmol/L (0.4-2.0) O2 Saturation 100 % (92-99) Arterial Blood pH 7.20 (7.35-7.45) Arterial Blood pCO2 at Patient Temp 38 mmHg (35-46) Arterial Blood pO2 at Patient Temp 408 mmHg (75-108) Arterial Blood HCO3 15 mmol/L (21-28) Arterial Blood Base Excess -13 mmol/L (-3-3) FiO2 100 Urine Opiates Screen Pos (NEG) Urine Methadone Screen Neg (NEG) Urine Barbiturates Neg (NEG) Urine Phencyclidine Screen Neg (NEG) Urine Amphetamine/Methamphetamine Pos (NEG) Urine Benzodiazepines Screen Neg (NEG) Urine Cocaine Screen Neg (NEG) Urine Cannabinoids Screen Neg (NEG) Urine Ethyl Alcohol Neg (NEG) Glucose (Fingerstick) 76 mg/dL (70-99) Test 06/15/20 21:03 06/15/20 21:17 06/16/20 00:18 06/16/20 05:30 Glucose (Fingerstick) 59 mg/dL (70-99) 151 mg/dL (70-99) 79 mg/dL (70-99) 64 mg/dL (70-99) White Blood Count 13.7 x10^3/uL (4.0-11.0) Red Blood Count 3.85 x10^6/uL (3.50-5.40) Hemoglobin 11.4 g/dL (12.0-15.5) Hematocrit 36.5 % (36.0-47.0) Mean Corpuscular Volume 95 fL (79-100) Mean Corpuscular Hemoglobin 30 pg (25-35) Mean Corpuscular Hemoglobin Concent 31 g/dL (31-37) Red Cell Distribution Width 18.1 % (11.5-14.5) Platelet Count 139 x10^3/uL (140-400) Neutrophils (%) (Auto) 91 % (31-73) Lymphocytes (%) (Auto) 3 % (24-48) Monocytes (%) (Auto) 4 % (0-9) Eosinophils (%) (Auto) 2 % (0-3) Basophils (%) (Auto) 0 % (0-3) Neutrophils # (Auto) 12.5 x10^3/uL (1.8-7.7) Lymphocytes # (Auto) 0.4 x10^3/uL (1.0-4.8) Monocytes # (Auto) 0.5 x10^3/uL (0.0-1.1) Eosinophils # (Auto) 0.3 x10^3/uL (0.0-0.7) Basophils # (Auto) 0.0 x10^3/uL (0.0-0.2) Segmented Neutrophils % 41 % (35-66) Band Neutrophils % 38 % (0-9) Lymphocytes % 2 % (24-48) Monocytes % 4 % (0-10) Eosinophils % 2 % (0-5) Metamyelocytes % 9 % (0-0) Myelocytes % 4 % (0-0) Nucleated Red Blood Cells 1 Toxic Granulation Marked Platelet Estimate Adequate (ADEQUATE) Anisocytosis Slight Sodium Level 136 mmol/L (136-145) Potassium Level 4.8 mmol/L (3.5-5.1) Chloride Level 104 mmol/L (98-107) Carbon Dioxide Level 17 mmol/L (21-32) Anion Gap 15 (6-14) Blood Urea Nitrogen 38 mg/dL (7-20) Creatinine 1.6 mg/dL (0.6-1.0) Estimated GFR (Cockcroft-Gault) 34.4 BUN/Creatinine Ratio 24 (6-20) Glucose Level 63 mg/dL (70-99) Calcium Level 7.0 mg/dL (8.5-10.1) Total Bilirubin 4.4 mg/dL (0.2-1.0) Aspartate Amino Transf (AST/SGOT) 248 U/L (15-37) Alanine Aminotransferase (ALT/SGPT) 150 U/L (14-59) Alkaline Phosphatase 246 U/L (46-116) Total Protein 5.5 g/dL (6.4-8.2) Albumin 1.7 g/dL (3.4-5.0) Albumin/Globulin Ratio 0.4 (1.0-1.7) Test 06/16/20 05:41 06/16/20 08:45 06/16/20 13:48 06/16/20 16:15 Glucose (Fingerstick) 159 mg/dL (70-99) 69 mg/dL (70-99) 66 mg/dL (70-99) O2 Saturation 96 % (92-99) Arterial Blood pH 7.28 (7.35-7.45) Arterial Blood pCO2 at Patient Temp 37 mmHg (35-46) Arterial Blood pO2 at Patient Temp 89 mmHg (75-108) Arterial Blood HCO3 17 mmol/L (21-28) Arterial Blood Base Excess -9 mmol/L (-3-3) FiO2 40%/ ac 20 vt 450 pe Test 06/16/20 18:01 06/16/20 18:24 06/17/20 00:11 06/17/20 05:40 Glucose (Fingerstick) 117 mg/dL (70-99) 132 mg/dL (70-99) Prothrombin Time 26.7 SEC (11.7-14.0) Prothromb Time International Ratio 2.5 (0.8-1.1) White Blood Count 16.0 x10^3/uL (4.0-11.0) Red Blood Count 3.66 x10^6/uL (3.50-5.40) Hemoglobin 10.7 g/dL (12.0-15.5) Hematocrit 34.6 % (36.0-47.0) Mean Corpuscular Volume 94 fL (79-100) Mean Corpuscular Hemoglobin 29 pg (25-35) Mean Corpuscular Hemoglobin Concent 31 g/dL (31-37) Red Cell Distribution Width 17.6 % (11.5-14.5) Platelet Count 78 x10^3/uL (140-400) Neutrophils (%) (Auto) 91 % (31-73) Lymphocytes (%) (Auto) 4 % (24-48) Monocytes (%) (Auto) 3 % (0-9) Eosinophils (%) (Auto) 1 % (0-3) Basophils (%) (Auto) 0 % (0-3) Neutrophils # (Auto) 14.6 x10^3/uL (1.8-7.7) Lymphocytes # (Auto) 0.7 x10^3/uL (1.0-4.8) Monocytes # (Auto) 0.5 x10^3/uL (0.0-1.1) Eosinophils # (Auto) 0.1 x10^3/uL (0.0-0.7) Basophils # (Auto) 0.0 x10^3/uL (0.0-0.2) Segmented Neutrophils % 28 % (35-66) Band Neutrophils % 44 % (0-9) Lymphocytes % 7 % (24-48) Atypical Lymphocytes % (Manual) 2 % (0-0) Monocytes % 2 % (0-10) Metamyelocytes % 16 % (0-0) Myelocytes % 1 % (0-0) Nucleated Red Blood Cells 1 Toxic Granulation Mod Toxic Vacuolation Mod Dohle Bodies Mod Platelet Estimate Decreased (ADEQUATE) Polychromasia Slight Anisocytosis Slight Sodium Level 135 mmol/L (136-145) Potassium Level 4.4 mmol/L (3.5-5.1) Chloride Level 101 mmol/L (98-107) Carbon Dioxide Level 19 mmol/L (21-32) Anion Gap 15 (6-14) Blood Urea Nitrogen 45 mg/dL (7-20) Creatinine 1.9 mg/dL (0.6-1.0) Estimated GFR (Cockcroft-Gault) 28.2 BUN/Creatinine Ratio 24 (6-20) Glucose Level 120 mg/dL (70-99) Calcium Level 6.7 mg/dL (8.5-10.1) Phosphorus Level 4.5 mg/dL (2.6-4.7) Magnesium Level 1.7 mg/dL (1.8-2.4) Total Bilirubin 5.8 mg/dL (0.2-1.0) Aspartate Amino Transf (AST/SGOT) 119 U/L (15-37) Alanine Aminotransferase (ALT/SGPT) 122 U/L (14-59) Alkaline Phosphatase 239 U/L (46-116) Total Protein 5.0 g/dL (6.4-8.2) Albumin 1.2 g/dL (3.4-5.0) Albumin/Globulin Ratio 0.3 (1.0-1.7) Test 06/17/20 05:45 06/17/20 08:06 06/17/20 09:00 Glucose (Fingerstick) 84 mg/dL (70-99) Platelet Count 78 x10^3/uL (140-400) Prothrombin Time 24.1 SEC (11.7-14.0) Prothromb Time International Ratio 2.2 (0.8-1.1) Activated Partial Thromboplast Time 44 SEC (24-38) Fibrinogen 379 mg/dL (200-440) D-Dimer (Dariana) > 20.00 ug/mlFEU O2 Saturation 94 % (92-99) Arterial Blood pH 7.30 (7.35-7.45) Arterial Blood pH (Temp corrected) 7.30 Arterial Blood pCO2 at Patient Temp 45 mmHg (35-46) Arterial Blood pCO2 (Temp correct) 45 mmHg Arterial Blood pO2 at Patient Temp 82 mmHg (75-108) Arterial Blood pO2 (Temp corrected) 82 mmHg Arterial Blood HCO3 21 mmol/L (21-28) Arterial Blood Base Excess -5 mmol/L (-3-3) FiO2 40% vent Laboratory Tests Test 06/16/20 13:48 06/16/20 16:15 06/16/20 18:01 06/16/20 18:24 Glucose (Fingerstick) 69 mg/dL (70-99) 66 mg/dL (70-99) 117 mg/dL (70-99) Prothrombin Time 26.7 SEC (11.7-14.0) Prothromb Time International Ratio 2.5 (0.8-1.1) Test 06/17/20 00:11 06/17/20 05:40 06/17/20 05:45 06/17/20 08:06 Glucose (Fingerstick) 132 mg/dL (70-99) 84 mg/dL (70-99) White Blood Count 16.0 x10^3/uL (4.0-11.0) Red Blood Count 3.66 x10^6/uL (3.50-5.40) Hemoglobin 10.7 g/dL (12.0-15.5) Hematocrit 34.6 % (36.0-47.0) Mean Corpuscular Volume 94 fL (79-100) Mean Corpuscular Hemoglobin 29 pg (25-35) Mean Corpuscular Hemoglobin Concent 31 g/dL (31-37) Red Cell Distribution Width 17.6 % (11.5-14.5) Platelet Count 78 x10^3/uL (140-400) 78 x10^3/uL (140-400) Neutrophils (%) (Auto) 91 % (31-73) Lymphocytes (%) (Auto) 4 % (24-48) Monocytes (%) (Auto) 3 % (0-9) Eosinophils (%) (Auto) 1 % (0-3) Basophils (%) (Auto) 0 % (0-3) Neutrophils # (Auto) 14.6 x10^3/uL (1.8-7.7) Lymphocytes # (Auto) 0.7 x10^3/uL (1.0-4.8) Monocytes # (Auto) 0.5 x10^3/uL (0.0-1.1) Eosinophils # (Auto) 0.1 x10^3/uL (0.0-0.7) Basophils # (Auto) 0.0 x10^3/uL (0.0-0.2) Segmented Neutrophils % 28 % (35-66) Band Neutrophils % 44 % (0-9) Lymphocytes % 7 % (24-48) Atypical Lymphocytes % (Manual) 2 % (0-0) Monocytes % 2 % (0-10) Metamyelocytes % 16 % (0-0) Myelocytes % 1 % (0-0) Nucleated Red Blood Cells 1 Toxic Granulation Mod Toxic Vacuolation Mod Dohle Bodies Mod Platelet Estimate Decreased (ADEQUATE) Polychromasia Slight Anisocytosis Slight Sodium Level 135 mmol/L (136-145) Potassium Level 4.4 mmol/L (3.5-5.1) Chloride Level 101 mmol/L (98-107) Carbon Dioxide Level 19 mmol/L (21-32) Anion Gap 15 (6-14) Blood Urea Nitrogen 45 mg/dL (7-20) Creatinine 1.9 mg/dL (0.6-1.0) Estimated GFR (Cockcroft-Gault) 28.2 BUN/Creatinine Ratio 24 (6-20) Glucose Level 120 mg/dL (70-99) Calcium Level 6.7 mg/dL (8.5-10.1) Phosphorus Level 4.5 mg/dL (2.6-4.7) Magnesium Level 1.7 mg/dL (1.8-2.4) Total Bilirubin 5.8 mg/dL (0.2-1.0) Aspartate Amino Transf (AST/SGOT) 119 U/L (15-37) Alanine Aminotransferase (ALT/SGPT) 122 U/L (14-59) Alkaline Phosphatase 239 U/L (46-116) Total Protein 5.0 g/dL (6.4-8.2) Albumin 1.2 g/dL (3.4-5.0) Albumin/Globulin Ratio 0.3 (1.0-1.7) Prothrombin Time 24.1 SEC (11.7-14.0) Prothromb Time International Ratio 2.2 (0.8-1.1) Activated Partial Thromboplast Time 44 SEC (24-38) Fibrinogen 379 mg/dL (200-440) D-Dimer (Dariana) > 20.00 ug/mlFEU Test 06/17/20 09:00 O2 Saturation 94 % (92-99) Arterial Blood pH 7.30 (7.35-7.45) Arterial Blood pH (Temp corrected) 7.30 Arterial Blood pCO2 at Patient Temp 45 mmHg (35-46) Arterial Blood pCO2 (Temp correct) 45 mmHg Arterial Blood pO2 at Patient Temp 82 mmHg (75-108) Arterial Blood pO2 (Temp corrected) 82 mmHg Arterial Blood HCO3 21 mmol/L (21-28) Arterial Blood Base Excess -5 mmol/L (-3-3) FiO2 40% vent Medications Active Scripts Medications Dose Route/Sig Max Daily Dose Days Date Category Hydrocodone-Apap 10-325 (Hydrocodone Bit/Acetaminophen) 1 Each Tablet 3 Tab PO Q3-4HRS PRN 02/07/14 Reported Alprazolam 1 Mg Tablet 1 Tab PO BID 02/07/14 Reported Methadone Hcl 10 Mg Tablet 10 Mg PO PRN PRN 02/07/14 Reported Lipitor (Atorvastatin Calcium) 40 Mg Tablet 1 Tab PO QHS 02/06/14 Reported Impression . IMPRESSION: 1. Acute hypoxic and hypercapnic respiratory failure secondary to multifactorial etiologies including combination of cardiogenic and septic shock. 2. The patient with severe cardiomyopathy with an EF of 10% to 15% and has combined systolic and diastolic heart failure. Being followed at and was determined end-stage heart failure and recommended hospice. 3. LV thrombus, on Coumadin at home. 4. Polysubstance abuse. Her urine drug screen is still positive for meth. 5. Acute kidney injury. 6. Abnormal liver function test due to shock. 7. Cannot exclude ischemic stroke. 8. Diffuse rash--purpura fulminance, 9. Severe protein-calorie malnutrition. 10. Underlying tobacco use with COPD suspected. 11. Metabolic acidosis. 12. Un Equal pupil size, needs ct head-- negative Plan . RECOMMENDATIONS: Continue current vent support 40% and PEEP of 5 Follow CXR/ABG -- increase rate 22 Continue ABX per ID -- concern for purpura fulminance, will do DIC workup Symptomatic tx of Fever on cooling blanket CT of head was negative Follow cardiology recs-- severe cardiomyopathy on primacor Continue vasopressors to keep MAP above 65 -- on levo and vaso Follow LFT Follow nephrology rercs- on bicarb gtt D/W RN and RT CC time 30 minutes PT. is DNR NAYANA ROME MD Jun 17, 2020 11:45
--- NOTE | 2020-06-17 13:30 | NUR ---
Patients sister Fer was bedside. Stated that she was going to go and talk with Denice the patient's daughter and DPOA. They are supposed to have a family meeting and then she will have Denice call up here to let us know of the plan of care re guarding withdrawing care. I told Fer to let me know how many people that will be up here. I asker to keep it to immediate family, so I can get them approval to be here. Will monitor.
--- NOTE | 2020-06-17 15:17 | PDOC ---
WILI VIRGEN [employer]URE LEADER 06/17/20 1517: CARDIO Progress Notes Date and Time Date of Service 06/17/2020 Time of Evaluation 1240 Subjective Subjective: Other (sedated) Vitals Vitals Vital Signs Date Time Temp Pulse Resp B/P (MAP) Pulse Ox O2 Delivery O2 Flow Rate FiO2 06/17/20 13:00 100.9 112 20 117/75 (89) 99 Ventilator 100.9 Weight Weight [ ] Input and Output Intake and Output Intake and Output 06/17/20 07:00 Intake Total 2448 ml Output Total 620 ml Balance 1828 ml Intake IV Total 2448 ml Output Urine Total 620 ml Laboratory Labs Laboratory Tests Test 06/16/20 16:15 06/16/20 18:01 06/16/20 18:24 06/17/20 00:11 Glucose (Fingerstick) 66 mg/dL (70-99) 117 mg/dL (70-99) 132 mg/dL (70-99) Prothrombin Time 26.7 SEC (11.7-14.0) Prothromb Time International Ratio 2.5 (0.8-1.1) Test 06/17/20 05:40 06/17/20 05:45 06/17/20 08:06 06/17/20 09:00 White Blood Count 16.0 x10^3/uL (4.0-11.0) Red Blood Count 3.66 x10^6/uL (3.50-5.40) Hemoglobin 10.7 g/dL (12.0-15.5) Hematocrit 34.6 % (36.0-47.0) Mean Corpuscular Volume 94 fL (79-100) Mean Corpuscular Hemoglobin 29 pg (25-35) Mean Corpuscular Hemoglobin Concent 31 g/dL (31-37) Red Cell Distribution Width 17.6 % (11.5-14.5) Platelet Count 78 x10^3/uL (140-400) 78 x10^3/uL (140-400) Neutrophils (%) (Auto) 91 % (31-73) Lymphocytes (%) (Auto) 4 % (24-48) Monocytes (%) (Auto) 3 % (0-9) Eosinophils (%) (Auto) 1 % (0-3) Basophils (%) (Auto) 0 % (0-3) Neutrophils # (Auto) 14.6 x10^3/uL (1.8-7.7) Lymphocytes # (Auto) 0.7 x10^3/uL (1.0-4.8) Monocytes # (Auto) 0.5 x10^3/uL (0.0-1.1) Eosinophils # (Auto) 0.1 x10^3/uL (0.0-0.7) Basophils # (Auto) 0.0 x10^3/uL (0.0-0.2) Segmented Neutrophils % 28 % (35-66) Band Neutrophils % 44 % (0-9) Lymphocytes % 7 % (24-48) Atypical Lymphocytes % (Manual) 2 % (0-0) Monocytes % 2 % (0-10) Metamyelocytes % 16 % (0-0) Myelocytes % 1 % (0-0) Nucleated Red Blood Cells 1 Toxic Granulation Mod Toxic Vacuolation Mod Dohle Bodies Mod Platelet Estimate Decreased (ADEQUATE) Polychromasia Slight Anisocytosis Slight Sodium Level 135 mmol/L (136-145) Potassium Level 4.4 mmol/L (3.5-5.1) Chloride Level 101 mmol/L (98-107) Carbon Dioxide Level 19 mmol/L (21-32) Anion Gap 15 (6-14) Blood Urea Nitrogen 45 mg/dL (7-20) Creatinine 1.9 mg/dL (0.6-1.0) Estimated GFR (Cockcroft-Gault) 28.2 BUN/Creatinine Ratio 24 (6-20) Glucose Level 120 mg/dL (70-99) Calcium Level 6.7 mg/dL (8.5-10.1) Phosphorus Level 4.5 mg/dL (2.6-4.7) Magnesium Level 1.7 mg/dL (1.8-2.4) Total Bilirubin 5.8 mg/dL (0.2-1.0) Aspartate Amino Transf (AST/SGOT) 119 U/L (15-37) Alanine Aminotransferase (ALT/SGPT) 122 U/L (14-59) Alkaline Phosphatase 239 U/L (46-116) Total Protein 5.0 g/dL (6.4-8.2) Albumin 1.2 g/dL (3.4-5.0) Albumin/Globulin Ratio 0.3 (1.0-1.7) Glucose (Fingerstick) 84 mg/dL (70-99) Prothrombin Time 24.1 SEC (11.7-14.0) Prothromb Time International Ratio 2.2 (0.8-1.1) Activated Partial Thromboplast Time 44 SEC (24-38) Fibrinogen 379 mg/dL (200-440) D-Dimer (Dariana) > 20.00 ug/mlFEU O2 Saturation 94 % (92-99) Arterial Blood pH 7.30 (7.35-7.45) Arterial Blood pH (Temp corrected) 7.30 Arterial Blood pCO2 at Patient Temp 45 mmHg (35-46) Arterial Blood pCO2 (Temp correct) 45 mmHg Arterial Blood pO2 at Patient Temp 82 mmHg (75-108) Arterial Blood pO2 (Temp corrected) 82 mmHg Arterial Blood HCO3 21 mmol/L (21-28) Arterial Blood Base Excess -5 mmol/L (-3-3) FiO2 40% vent Test 06/17/20 12:18 Glucose (Fingerstick) 118 mg/dL (70-99) Microbiology Micro Microbiology 06/15/20 Urine Culture - Preliminary, Resulted 06/15/20 Blood Culture - Preliminary, Resulted Review of Systems Constitutional: yes: other (UNABLE TO OBTAIN) Physical Exam Chest: Symmetric LUNGS: Other (diminished, intubated/vent) Heart: RRR (SR/ST) Abdomen: Other (Anasarca) Extremities: Other (body edema; purupura) Neurology: other (SEDATED) Assessment Assessment 1. Acute respiratory failure; multifactorial; s/p intubation 2. Acute on chronic systolic CHF 3. Severe NICM; LVEF 10-15 per echo 03/11. s/p AICD (Smartsy). Follows with Dr. Wilde of heart failure clinic. Previously received [facility] hospice services however due to breaking narcotic contract she lost services thru agency 4. Combine septic, cardiogenic shock. Requiring pressor support 5. Septic shock with UTI and bacteremia: BC with strep and Ecoli with UTI 6. H/o LV thrombus noncompliant with OAC, Eliquis 7. H/o CVA: negative for new stroke 8. Coagulopathy, thrombocytopenia with h/o cirrhosis 9. Transaminitis 10. LARISSA on CKD 11. Gluteal abscess 12. Substance abuse; long-standing h/o meth use. UDS + amphetamines 13. PUI; COVID PCR negative 13. Generalized purpura: no DIC. Recommendations Continue pressor support, Milrinone ongoing Very poor prognosis with multiorgan failure. Possibly treatment withdrawal, awaiting family meeting particularly with DPOA (daughter and sister). Now DNR Ongoing antibiotic therapy. Follow cultures. Supportive care Justicifation of Admission Dx: Justifications for Admission: Justification of Admission Dx: Yes KELSIE LAFLEUR MD 06/17/20 9255: CARDIO Progress Notes Assessment Assessment Patient seen and evaluated. I agree with our nurse practitioners assessment and plan as above. Acute respiratory failure; multifactorial; s/p intubation Severe NICM; LVEF 10-15 per echo 03/11. s/p AICD (Smartsy). Follows with Dr. Wilde of heart failure clinic. Previously received [facility] hospice services however due to breaking narcotic contract she lost services thru agency Combine septic, cardiogenic shock. Requiring pressor support H/o LV thrombus noncompliant with OAC, Eliquis H/o CVA: negative for new stroke Coagulopathy, thrombocytopenia with h/o cirrhosis LARISSA on CKD Substance abuse; long-standing h/o meth use. UDS + amphetamines PUI; COVID PCR negative Generalized purpura: no DIC. WILI VIRGEN APRN Jun 17, 2020 15:17 KELSIE LAFLEUR MD Jun 17, 2020 18:25
--- NOTE | 2020-06-17 15:34 | NUR ---
SS following for discharge planning. SS reviewed pt chart and discussed with pt RN. Pt is from home and is currently on the vent at 40%. COVID19 negative. Pt on IV Meropenem, IV Levaquin, and IV Daptomycin. Milrinone drip. Not stable. Pt's family discussing withdrawal of care. SS will continue to follow for discharge planning.
[2020-06-17] MEDS: MILRINONE 20MG/100ML PREMIX 100 ML IV PRN (15:39)
--- NOTE | 2020-06-17 17:33 | NUR ---
Patient's daughter Denice (DPOA) called on the telephone to request that we withdraw care on her mother. Telephone orders verified by this nurse and Leonora Hudson. Dr Rey notified of families wishes. Also patient's sister Fer is to bring DPOA paperwork stating that Fer and Denice are DPOA's. Family is to be here around 1999. I informed them that immediate family only is to be present. This includes the patient's three kids, her two sisters, brother, and her father.
[2020-06-17] MEDS ORDERED: MORPHINE SULFATE 4 MG/ML VIAL. IV PRN (18:00)
[2020-06-17] MEDS ORDERED: MORPHINE SULFATE 10 MG/ML VIAL. IM ONE (18:00)
[2020-06-17] MEDS ORDERED: MORPHINE SULFATE 10 MG/ML VIAL. IV ONE (18:45)
[2020-06-17] MEDS ORDERED: GLYCOPYRROLATE 1 MG/5 ML VIAL. IV ONE (18:45)
[2020-06-17] MEDS ORDERED: SODIUM BICARBONATE VIAL 150 MEQ in IV DEXTROSE 5% 1,000 ML IV SCH (22:30)
--- NOTE | 2020-06-17 22:33 | NUR ---
At 1900 patient's daughter, Nicole, and son, Pete, showed up to hospital and began yelling at me and GOSIA Alba, about not being a part of deciding to make the patient comfort care. They were informed that the patient's sister, Fer, had DPOA paperwork that she would be bringing in that stated that Denice and Fer were both appointed DPOAs. They were then asked to leave the unit R/T shift change and that if they would not leave security would be called. Nicole stated that she had already called the director of trauma and they would be arriving shortly. At 1999 Nicole and Pete were escorted onto the unit by one [facility] security researcher and [facility]. Both officers were informed of situation and Nicole did apologize for acting up and was now tearful. Nicole and Pete entered the room. Multiple other police officers showed up at this time. Shortly after, Fer, Abigail (sister), Noah (brother), and Alan (dad) arrived and entered the patient room. Fer gave me the paperwork she had. I went over this paperwork with Heena, nursing distribution center supervisor, and found that it was only financial DPOA paperwork. After discussion with nursing distribution center supervisor and both sisters, it was decided to wait to make a decision until the morning when the case could be looked over more thoroughly since all the family/children were in disagreement and we did not have any official medical DPOA paperwork. Denice then told Fer that she did have medical DPOA paperwork but had not given us a copy. Fer was told that if she could get Denice to bring the paperwork into the hospital and it was official then we would be able to list her as official DPOA without any issue. Fer stated she would look into this and get us the paperwork as soon as she could talk to Denice more about it. Fer also stated that she and Abigail would talk to the kids about waiting to make a decision and hopefully having a family meeting tomorrow.
[2020-06-18] VITALS (16 sets, daily range): BP systolic 96–131; BP diastolic 66–80
[2020-06-18] MEDS: VASOPRESSIN 20 UNIT in IV DEXTROSE 5% 100ML 100 ML IV PRN ×2 (00:56→10:40)
[2020-06-18] MEDS ORDERED: SODIUM BICARBONATE VIAL 150 MEQ in IV DEXTROSE 5% 1,000 ML IV SCH (02:30)
[2020-06-18] MEDS: MIDAZOLAM 100mg/100ml NS BAG 100 ML IV PRN (03:05)
[2020-06-18] MEDS: NOREPINEPHRINE VIAL 8 MG in IV DEXTROSE 5% 250 ML IV PRN ×3 (04:02→13:39)
[2020-06-18 06:35] LABS: CALCIUM 6.9 mg/dL (8.5-10.1); CREATININE 1.3 mg/dL (0.6-1.0); GFR 43.7; POTASSIUM 3.7 mmol/L (3.5-5.1)
[2020-06-18 06:48] LABS: BASO # 0.1 x10^3/uL (0.0-0.2); BASO % 0 % (0-3); EOS % 0 % (0-3); HEMATOCRIT 33.3 % (36.0-47.0); HEMOGLOBIN 10.7 g/dL (12.0-15.5); LYMPH # 0.9 x10^3/uL (1.0-4.8); LYMPH % 4 % (24-48); MEAN CORPUSCULAR HEMOGLOBIN 29 pg (25-35); MEAN CORPUSCULAR HGB CONC 32 g/dL (31-37); MEAN CORPUSCULAR VOLUME 90 fL (79-100); MONO # 0.7 x10^3/uL (0.0-1.1); MONO % 3 % (0-9); NEUT # 21.7 x10^3/uL (1.8-7.7); NEUT % 93 % (31-73); PLATELET COUNT 38 x10^3/uL (140-400); RED BLOOD COUNT 3.71 x10^6/uL (3.50-5.40); RED CELL DISTRIBUTION WIDTH 17.3 % (11.5-14.5); WHITE BLOOD COUNT 23.3 x10^3/uL (4.0-11.0)
[2020-06-18 07:12] LABS: PLT ESTIMATE DECREASED (ADEQUATE)
--- NOTE | 2020-06-18 08:11 | PDOC ---
Infectious Disease Note Subjective Subjective pt is intubated on vent ROS ROS no n/v/d/ Vital Sign Vital Signs Vital Signs Date Time Temp Pulse Resp B/P (MAP) Pulse Ox O2 Delivery O2 Flow Rate FiO2 06/18/20 07:00 101.7 114 22 113/67 (82) 98 Ventilator 101.7 Physical Exam PHYSICAL EXAM GENERAL: Sedated, orally intubated female, not in distress. VITAL SIGNS: stable HEENT: Right pupil is dilated and fixed. Left pupil is normal and reacting well. Orally intubated. NECK: Supple, no JVP, no lymphadenopathy. LUNGS: Clear. HEART: S1, S2 regular. No gallop or murmur. ABDOMEN: Soft, nontender, no organomegaly. EXTREMITIES: No edema or cyanosis. The patient does have what appears to be subacute hemorrhage into the breast, abdomen and thigh and there is discoloration on the left gluteal area with even the puncture wounds into that area, these are external hemorrhoids. now those areas blistering and breaking dusky fingers and toes NEUROLOGIC: The patient is sedated, orally intubated. Unable to youth court judge. Labs Lab Laboratory Tests Test 06/17/20 08:06 06/17/20 09:00 06/17/20 12:18 06/18/20 05:45 Platelet Count 78 x10^3/uL (140-400) 38 x10^3/uL (140-400) Prothrombin Time 24.1 SEC (11.7-14.0) Prothromb Time International Ratio 2.2 (0.8-1.1) Activated Partial Thromboplast Time 44 SEC (24-38) Fibrinogen 379 mg/dL (200-440) D-Dimer (Dariana) > 20.00 ug/mlFEU O2 Saturation 94 % (92-99) Arterial Blood pH 7.30 (7.35-7.45) Arterial Blood pH (Temp corrected) 7.30 Arterial Blood pCO2 at Patient Temp 45 mmHg (35-46) Arterial Blood pCO2 (Temp correct) 45 mmHg Arterial Blood pO2 at Patient Temp 82 mmHg (75-108) Arterial Blood pO2 (Temp corrected) 82 mmHg Arterial Blood HCO3 21 mmol/L (21-28) Arterial Blood Base Excess -5 mmol/L (-3-3) FiO2 40% vent Glucose (Fingerstick) 118 mg/dL (70-99) White Blood Count 23.3 x10^3/uL (4.0-11.0) Red Blood Count 3.71 x10^6/uL (3.50-5.40) Hemoglobin 10.7 g/dL (12.0-15.5) Hematocrit 33.3 % (36.0-47.0) Mean Corpuscular Volume 90 fL (79-100) Mean Corpuscular Hemoglobin 29 pg (25-35) Mean Corpuscular Hemoglobin Concent 32 g/dL (31-37) Red Cell Distribution Width 17.3 % (11.5-14.5) Neutrophils (%) (Auto) 93 % (31-73) Lymphocytes (%) (Auto) 4 % (24-48) Monocytes (%) (Auto) 3 % (0-9) Eosinophils (%) (Auto) 0 % (0-3) Basophils (%) (Auto) 0 % (0-3) Neutrophils # (Auto) 21.7 x10^3/uL (1.8-7.7) Lymphocytes # (Auto) 0.9 x10^3/uL (1.0-4.8) Monocytes # (Auto) 0.7 x10^3/uL (0.0-1.1) Eosinophils # (Auto) 0.0 x10^3/uL (0.0-0.7) Basophils # (Auto) 0.1 x10^3/uL (0.0-0.2) Platelet Estimate Decreased (ADEQUATE) Sodium Level 134 mmol/L (136-145) Potassium Level 3.7 mmol/L (3.5-5.1) Chloride Level 97 mmol/L (98-107) Carbon Dioxide Level 27 mmol/L (21-32) Anion Gap 10 (6-14) Blood Urea Nitrogen 34 mg/dL (7-20) Creatinine 1.3 mg/dL (0.6-1.0) Estimated GFR (Cockcroft-Gault) 43.7 Glucose Level 105 mg/dL (70-99) Calcium Level 6.9 mg/dL (8.5-10.1) Test 06/18/20 05:48 Glucose (Fingerstick) 111 mg/dL (70-99) Micro BLOOD CULTURE LC Final Final GRAM POSITIVE COCCI FINAL ID= [BETA STREPTOCOCCUS GROUP A] BETA STREPTOCOCCUS GROUP A ANTIMICROBIAL SUSCEPTIBILITY Final Comment MICROSTREP PANEL 2 BETA STREPTOCOCCUS GROUP A ANTIBIOTIC RESULT INTERPRETATION AMPICILLIN <=0.06 S CEFTRIAXONE <=0.25 S CEFOTAXIME <=0.25 S CEFEPIME <=0.25 S DAPTOMYCIN <=0.25 S ERYTHROMYCIN >0.5 R LINEZOLID 1 S LEVOFLOXACIN 0.5 S PENICILLIN <=0.03 S VANCOMYCIN 0.5 S Unless otherwise specified, Testing Performed by: [address] [id number] For Inquires, the Physician may contact the Microbiology department at [phone] URINE CULTURE Final Final GREATER THAN 100,000 CFU/ML GRAM NEGATIVE RODS on 06/17/20 at 0734 FINAL ID= [ESCHERICHIA COLI] 40,000 CFU/ML Normal genitourinary karyn, not indicative of infection on 06/18/20 at 0703 Testing Performed by: [address] [address] For Inquires, the Physician may contact the Microbiology department at [phone] ESCHERICHIA COLI ANTIMICROBIAL SUSCEPTIBILITY Final Comment NEG CHELE 56 ESCHERICHIA COLI ANTIBIOTIC RESULT INTERPRETATION AMPICILLIN/SULBACTAM 16/8 I AMIKACIN <=16 S AMPICILLIN >16 R AMOXICILLIN/K CLAVULANATE <=8/4 S AZTREONAM <=4 S CEFTRIAXONE <=1 S CEFTAZIDIME <=1 S CEFOTAXIME <=2 S CEFOXITIN <=8 S CIPROFLOXACIN <=0.25 S CEFEPIME <=2 S CEFUROXIME <=4 S CEFTAZIDIME/AVIBACTAM <=4 S ERTAPENEM <=0.5 S NITROFURANTOIN <=32 S GENTAMICIN 4 S LEVOFLOXACIN <=0.5 S MEROPENEM <=1 S PIPERACILLIN/TAZOBACTAM <=8 S TRIMETHOPRIM/SULFAMETHOXAZOLE <=0.5/9.5 S TETRACYCLINE >8 R --- Objective Assessment IMPRESSION: 1. Fever. 2. Leukocytosis. 3. Hypotension, requiring vasopressor support. 4. Respiratory failure requiring ventilatory support. 5. Acute kidney injury. 6. Elevated liver function tests. 7. Multiorgan system involvement. 8. Discoloration of the skin on the front, there is probably subcute hemorrhage and there is discoloration of the left gluteal area where there are some puncture burt. 9. History of congestive heart failure, has AICD. 10. History of cerebrovascular accident. 11. History of drug use. 12 Group A strep sepsis Plan Plan of Care cont antibiotics, meropenem cont supportive care prognosis poor family to withdraw care soon CRISTIAN OAKLEY MD Jun 18, 2020 08:11
[2020-06-18 08:40] LABS: BASE EXCESS ABG 5 mmol/L (-3-3); CORRECTED PCO2 ABG 40 mmHg; CORRECTED PH ABG 7.47; CORRECTED PO2 ABG 79 mmHg; HCO3 ABG 28 mmol/L (21-28); PCO2 ABG 37 mmHg (35-46); PO2 ABG 71 mmHg (75-108); SAT O2 ABG 95 % (92-99)
[2020-06-18] MEDS: MEROPENEM 500 MG in IV NORMAL SALINE 50ML 50 ML IV SCH ×2 (08:40→13:40)
[2020-06-18 09:01] LABS: FIO2 ABG 40/VENT
--- NOTE | 2020-06-18 10:13 | PDOC ---
PULMONARY PROGRESS NOTES DATE: 06/18/20 TIME: 10:08 Subjective Remains on vent support 40% and PEEP of 5 on multiple pressors/inotropes fevers overnight Vitals Vital Signs Date Time Temp Pulse Resp B/P (MAP) Pulse Ox O2 Delivery O2 Flow Rate FiO2 06/18/20 09:18 98 Ventilator 06/18/20 09:00 98.8 115 22 121/77 (92) 98.8 Comments intubated/sedated Lungs: Clear Cardiovascular: S1, S2 Skin: Other (blister/ecymotic rash ) Labs Laboratory Tests Test 06/16/20 13:48 06/16/20 16:15 06/16/20 18:01 06/16/20 18:24 Glucose (Fingerstick) 69 mg/dL (70-99) 66 mg/dL (70-99) 117 mg/dL (70-99) Prothrombin Time 26.7 SEC (11.7-14.0) Prothromb Time International Ratio 2.5 (0.8-1.1) Test 06/17/20 00:11 06/17/20 05:40 06/17/20 05:45 06/17/20 08:06 Glucose (Fingerstick) 132 mg/dL (70-99) 84 mg/dL (70-99) White Blood Count 16.0 x10^3/uL (4.0-11.0) Red Blood Count 3.66 x10^6/uL (3.50-5.40) Hemoglobin 10.7 g/dL (12.0-15.5) Hematocrit 34.6 % (36.0-47.0) Mean Corpuscular Volume 94 fL (79-100) Mean Corpuscular Hemoglobin 29 pg (25-35) Mean Corpuscular Hemoglobin Concent 31 g/dL (31-37) Red Cell Distribution Width 17.6 % (11.5-14.5) Platelet Count 78 x10^3/uL (140-400) 78 x10^3/uL (140-400) Neutrophils (%) (Auto) 91 % (31-73) Lymphocytes (%) (Auto) 4 % (24-48) Monocytes (%) (Auto) 3 % (0-9) Eosinophils (%) (Auto) 1 % (0-3) Basophils (%) (Auto) 0 % (0-3) Neutrophils # (Auto) 14.6 x10^3/uL (1.8-7.7) Lymphocytes # (Auto) 0.7 x10^3/uL (1.0-4.8) Monocytes # (Auto) 0.5 x10^3/uL (0.0-1.1) Eosinophils # (Auto) 0.1 x10^3/uL (0.0-0.7) Basophils # (Auto) 0.0 x10^3/uL (0.0-0.2) Segmented Neutrophils % 28 % (35-66) Band Neutrophils % 44 % (0-9) Lymphocytes % 7 % (24-48) Atypical Lymphocytes % (Manual) 2 % (0-0) Monocytes % 2 % (0-10) Metamyelocytes % 16 % (0-0) Myelocytes % 1 % (0-0) Nucleated Red Blood Cells 1 Toxic Granulation Mod Toxic Vacuolation Mod Dohle Bodies Mod Platelet Estimate Decreased (ADEQUATE) Polychromasia Slight Anisocytosis Slight Sodium Level 135 mmol/L (136-145) Potassium Level 4.4 mmol/L (3.5-5.1) Chloride Level 101 mmol/L (98-107) Carbon Dioxide Level 19 mmol/L (21-32) Anion Gap 15 (6-14) Blood Urea Nitrogen 45 mg/dL (7-20) Creatinine 1.9 mg/dL (0.6-1.0) Estimated GFR (Cockcroft-Gault) 28.2 BUN/Creatinine Ratio 24 (6-20) Glucose Level 120 mg/dL (70-99) Calcium Level 6.7 mg/dL (8.5-10.1) Phosphorus Level 4.5 mg/dL (2.6-4.7) Magnesium Level 1.7 mg/dL (1.8-2.4) Total Bilirubin 5.8 mg/dL (0.2-1.0) Aspartate Amino Transf (AST/SGOT) 119 U/L (15-37) Alanine Aminotransferase (ALT/SGPT) 122 U/L (14-59) Alkaline Phosphatase 239 U/L (46-116) Total Protein 5.0 g/dL (6.4-8.2) Albumin 1.2 g/dL (3.4-5.0) Albumin/Globulin Ratio 0.3 (1.0-1.7) Prothrombin Time 24.1 SEC (11.7-14.0) Prothromb Time International Ratio 2.2 (0.8-1.1) Activated Partial Thromboplast Time 44 SEC (24-38) Fibrinogen 379 mg/dL (200-440) D-Dimer (Dariana) > 20.00 ug/mlFEU Test 06/17/20 09:00 06/17/20 12:18 06/18/20 05:45 06/18/20 05:48 O2 Saturation 94 % (92-99) Arterial Blood pH 7.30 (7.35-7.45) Arterial Blood pH (Temp corrected) 7.30 Arterial Blood pCO2 at Patient Temp 45 mmHg (35-46) Arterial Blood pCO2 (Temp correct) 45 mmHg Arterial Blood pO2 at Patient Temp 82 mmHg (75-108) Arterial Blood pO2 (Temp corrected) 82 mmHg Arterial Blood HCO3 21 mmol/L (21-28) Arterial Blood Base Excess -5 mmol/L (-3-3) FiO2 40% vent Glucose (Fingerstick) 118 mg/dL (70-99) 111 mg/dL (70-99) White Blood Count 23.3 x10^3/uL (4.0-11.0) Red Blood Count 3.71 x10^6/uL (3.50-5.40) Hemoglobin 10.7 g/dL (12.0-15.5) Hematocrit 33.3 % (36.0-47.0) Mean Corpuscular Volume 90 fL (79-100) Mean Corpuscular Hemoglobin 29 pg (25-35) Mean Corpuscular Hemoglobin Concent 32 g/dL (31-37) Red Cell Distribution Width 17.3 % (11.5-14.5) Platelet Count 38 x10^3/uL (140-400) Neutrophils (%) (Auto) 93 % (31-73) Lymphocytes (%) (Auto) 4 % (24-48) Monocytes (%) (Auto) 3 % (0-9) Eosinophils (%) (Auto) 0 % (0-3) Basophils (%) (Auto) 0 % (0-3) Neutrophils # (Auto) 21.7 x10^3/uL (1.8-7.7) Lymphocytes # (Auto) 0.9 x10^3/uL (1.0-4.8) Monocytes # (Auto) 0.7 x10^3/uL (0.0-1.1) Eosinophils # (Auto) 0.0 x10^3/uL (0.0-0.7) Basophils # (Auto) 0.1 x10^3/uL (0.0-0.2) Platelet Estimate Decreased (ADEQUATE) Sodium Level 134 mmol/L (136-145) Potassium Level 3.7 mmol/L (3.5-5.1) Chloride Level 97 mmol/L (98-107) Carbon Dioxide Level 27 mmol/L (21-32) Anion Gap 10 (6-14) Blood Urea Nitrogen 34 mg/dL (7-20) Creatinine 1.3 mg/dL (0.6-1.0) Estimated GFR (Cockcroft-Gault) 43.7 Glucose Level 105 mg/dL (70-99) Calcium Level 6.9 mg/dL (8.5-10.1) Test 06/18/20 08:00 O2 Saturation 95 % (92-99) Arterial Blood pH 7.50 (7.35-7.45) Arterial Blood pH (Temp corrected) 7.47 Arterial Blood pCO2 at Patient Temp 37 mmHg (35-46) Arterial Blood pCO2 (Temp correct) 40 mmHg Arterial Blood pO2 at Patient Temp 71 mmHg (75-108) Arterial Blood pO2 (Temp corrected) 79 mmHg Arterial Blood HCO3 28 mmol/L (21-28) Arterial Blood Base Excess 5 mmol/L (-3-3) FiO2 40/vent Laboratory Tests Test 06/17/20 12:18 06/18/20 05:45 06/18/20 05:48 06/18/20 08:00 Glucose (Fingerstick) 118 mg/dL (70-99) 111 mg/dL (70-99) White Blood Count 23.3 x10^3/uL (4.0-11.0) Red Blood Count 3.71 x10^6/uL (3.50-5.40) Hemoglobin 10.7 g/dL (12.0-15.5) Hematocrit 33.3 % (36.0-47.0) Mean Corpuscular Volume 90 fL (79-100) Mean Corpuscular Hemoglobin 29 pg (25-35) Mean Corpuscular Hemoglobin Concent 32 g/dL (31-37) Red Cell Distribution Width 17.3 % (11.5-14.5) Platelet Count 38 x10^3/uL (140-400) Neutrophils (%) (Auto) 93 % (31-73) Lymphocytes (%) (Auto) 4 % (24-48) Monocytes (%) (Auto) 3 % (0-9) Eosinophils (%) (Auto) 0 % (0-3) Basophils (%) (Auto) 0 % (0-3) Neutrophils # (Auto) 21.7 x10^3/uL (1.8-7.7) Lymphocytes # (Auto) 0.9 x10^3/uL (1.0-4.8) Monocytes # (Auto) 0.7 x10^3/uL (0.0-1.1) Eosinophils # (Auto) 0.0 x10^3/uL (0.0-0.7) Basophils # (Auto) 0.1 x10^3/uL (0.0-0.2) Platelet Estimate Decreased (ADEQUATE) Sodium Level 134 mmol/L (136-145) Potassium Level 3.7 mmol/L (3.5-5.1) Chloride Level 97 mmol/L (98-107) Carbon Dioxide Level 27 mmol/L (21-32) Anion Gap 10 (6-14) Blood Urea Nitrogen 34 mg/dL (7-20) Creatinine 1.3 mg/dL (0.6-1.0) Estimated GFR (Cockcroft-Gault) 43.7 Glucose Level 105 mg/dL (70-99) Calcium Level 6.9 mg/dL (8.5-10.1) O2 Saturation 95 % (92-99) Arterial Blood pH 7.50 (7.35-7.45) Arterial Blood pH (Temp corrected) 7.47 Arterial Blood pCO2 at Patient Temp 37 mmHg (35-46) Arterial Blood pCO2 (Temp correct) 40 mmHg Arterial Blood pO2 at Patient Temp 71 mmHg (75-108) Arterial Blood pO2 (Temp corrected) 79 mmHg Arterial Blood HCO3 28 mmol/L (21-28) Arterial Blood Base Excess 5 mmol/L (-3-3) FiO2 40/vent Medications Active Scripts Medications Dose Route/Sig Max Daily Dose Days Date Category Hydrocodone-Apap 10-325 (Hydrocodone Bit/Acetaminophen) 1 Each Tablet 3 Tab PO Q3-4HRS PRN 02/07/14 Reported Alprazolam 1 Mg Tablet 1 Tab PO BID 02/07/14 Reported Methadone Hcl 10 Mg Tablet 10 Mg PO PRN PRN 02/07/14 Reported Lipitor (Atorvastatin Calcium) 40 Mg Tablet 1 Tab PO QHS 02/06/14 Reported Impression . IMPRESSION: 1. Acute hypoxic and hypercapnic respiratory failure secondary to multifactorial etiologies including combination of cardiogenic and septic shock. 2. The patient with severe cardiomyopathy with an EF of 10% to 15% and has combined systolic and diastolic heart failure. Being followed at and was determined end-stage heart failure and recommended hospice. 3. LV thrombus, on Coumadin at home. 4. Polysubstance abuse. Her urine drug screen is still positive for meth. 5. Acute kidney injury-- improving 6. Abnormal liver function test due to shock. 7. Cannot exclude ischemic stroke. 8. Diffuse rash--purpura fulminance, -- worsening 9. Severe protein-calorie malnutrition. 10. Underlying tobacco use with COPD suspected. 11. Metabolic acidosis. 12. Un Equal pupil size, needs ct head-- negative 13. E.coli UTI !4. Beta strep group A bacteremia Plan . RECOMMENDATIONS: Continue current vent support 40% and PEEP of 5 Follow CXR/ABG -- decreased rate 20 Continue ABX per ID -- concern for purpura fulminance, Cultures positive for beta strep group A, on amie Symptomatic tx of Fever on cooling blanket CT of head was negative Follow cardiology recs-- severe cardiomyopathy on primacor Continue vasopressors to keep MAP above 65 -- on levo and vaso Follow nephrology rercs- slowly improving D/W RN and RT CC time 30 minutes PT. is DNR NAYANA ROME MD Jun 18, 2020 10:13
--- NOTE | 2020-06-18 11:09 | PDOC ---
[employer] PROGRESS NOTE Date of Service DOS: DATE: 06/18/20 TIME: 11:08 Chief Complaint Chief Complaint Acute respiratory failure with hypercapnia and hypoxia - likely related to sepsis possibly from likely gram negative pneumonia. Will cont vent support, consult pulm. Wean as tolerated Septic shock - not responsive to fluid bolus, initiated on pressors. We will continue with milrinone and Levophed to maintain maps greater than 60. We will continue with daptomycin, Levaquin, and meropenem per ID LARISSA - likely vasomotor nephropathy - no renal disease per family, normal Cr 4 years ago here. Given weight based bolus of normal saline, but with h/o CHF with unknown EF currently will be judicious about fluids Metabolic acidosis - due to lactic acidosis likely from septic shock and hypoxemia. Will monitor Cirrhosis with Transaminitis - possibly some mild shock liver with sepsis. Does have h/o cirrhosis, details are unknown. We will repeat LFTs tomorrow H/o CVA (left-sided residual deficits), chronic back pain, HTN Systolic CHF s/p AICD placement - unknown EF - on metoprolol Bumex 2 mg twice daily Eliquis Aldactone ASA. Has [facility] f/u outpatient Amphetamine positive UDS - with concerning needles burt in multiple locations. 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 Will place on lovenox for now FULL CODE Dispo -poor prognosis pending withdrawal care. Inpatient ICU History of Present Illness History of Present Illness 06/18/2020 No major events overnight. Please see nurses note for details regarding CODE STATUS and withdraw care plan for the patient. Pending medical DPOA. Patient continues a fever 102 F. Planning for withdraw care today. Pending family meeting. Patient's chart, labs, images were reviewed and discussed with RN 06/17/2020 No acute events overnight. Patient is on a cooling blanket with max temperature currently is 99.0, T-max overnight is 102 F.. Patient is currently on vent settings of 20/450/40/5. Patient's chart, labs, images were reviewed and discussed with RN 06/16/2020 No acute events overnight. Fever 102.7. Will stop vasopressin and attempt to wean Levophed. Map goals of 60. Pending cardiology, nephrology, pulmonology recommendations. We will continue to observe mottling of the skin.> 50% time spent in patient chart, labs, and imaging review and in discussion with RN and SW 49 year old female w/ PMHx CVA (left-sided residual deficits), chronic back pain, HTN, systolic CHF s/p AICD placement, cirrhosis who presents via private vehicle with her daughter with 2 days of mottling to bilateral knees, upper and inner thigh as well as nausea and vomiting, fatigue, and lethargy redness. She was also noted with rash on her abdomen and under right breast. She rated her pain 10 out of 10, was in significant respiratory distress while initial ED H&P was being taken. Patient told ED she lives with one of her daughters, but not the daughter who brought her here. She also noted that a year ago she was on hospice for her CHF but after AICD placement and improved and has since been off hospice. She follows with [facility]. Chest radiograph with bilateral opacities and left-sided AICD noted. CT abdomen with dilatation of the colon, diffuse edema to the soft tissues, cardiomegaly and at the lung bases there is patchy opacity seen. EKG sinus tachycardia with incomplete left bundle branch block right axis deviation Initial vital signs temperature 97.5 F heart rate 122 bpm blood pressure 90/64 respiratory rate 27. She continued to tire out throughout interview and had worsening confusion. An ABG was performed showing pH 7.15 PCO2 55 and PaO2 of 64 due to her progressive respiratory distress decision to intubate after informed consent from patient and daughter. Right femoral central line placed emergently. WBC 11.2, Hb 14.9, platelets 203, NA 135, K3.7, BUN 36, CR 1.3, glucose 60 bilirubin 4.4, AST 220, ALT 131, alk phos 412, albumin 2, lipase 14, troponin 0, rapid COVID-19 negative, urinalysis with moderate blood. Admitted to ICU for further care. Vitals/I&O Vitals/I&O: Vital Signs Date Time Temp Pulse Resp B/P (MAP) Pulse Ox O2 Delivery O2 Flow Rate FiO2 06/18/20 10:00 101.6 118 20 131/80 (97) 98 Ventilator 101.6 I & O 06/17/20 06/17/20 06/18/20 15:00 23:00 07:00 Intake Total 280 ml 1519.67 ml 2351 ml Output Total 400 ml 475 ml 745 ml Balance -120 ml 1044.67 ml 1606 ml Physical Exam Physical Exam: GENERAL: Sedated, orally intubated female, not in distress. VITAL SIGNS: stable HEENT: Right pupil is dilated and fixed. Left pupil is normal and reacting well. Orally intubated. NECK: Supple, no JVP, no lymphadenopathy. LUNGS: Clear. HEART: S1, S2 regular. No gallop or murmur. ABDOMEN: Soft, nontender, no organomegaly. EXTREMITIES: No edema or cyanosis. The patient does have what appears to be subacute hemorrhage into the breast, abdomen and thigh and there is discoloration on the left gluteal area with even the puncture wounds into that area, these are external hemorrhoids. now those areas blistering and breaking dusky fingers and toes NEUROLOGIC: The patient is sedated, orally intubated. 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 General: Other (sedated ) Heart: Regular rate (ST) Lungs: Clear Abdomen: Other (anasarca, ) Extremities: Other (anasarca. Mottling of bilateral hands and feet, which are cool to touch. Bilateral breasts red, swollen. Diffuse ecchymosis. ) Skin: Other (VIOLACEOUS SKIN LESION DIFFUSELY THROUGH OUT HER VENTRAL AREA and on her extremities) Labs Labs: Laboratory Tests Test 06/17/20 12:18 06/18/20 05:45 06/18/20 05:48 06/18/20 08:00 Glucose (Fingerstick) 118 mg/dL (70-99) 111 mg/dL (70-99) White Blood Count 23.3 x10^3/uL (4.0-11.0) Red Blood Count 3.71 x10^6/uL (3.50-5.40) Hemoglobin 10.7 g/dL (12.0-15.5) Hematocrit 33.3 % (36.0-47.0) Mean Corpuscular Volume 90 fL (79-100) Mean Corpuscular Hemoglobin 29 pg (25-35) Mean Corpuscular Hemoglobin Concent 32 g/dL (31-37) Red Cell Distribution Width 17.3 % (11.5-14.5) Platelet Count 38 x10^3/uL (140-400) Neutrophils (%) (Auto) 93 % (31-73) Lymphocytes (%) (Auto) 4 % (24-48) Monocytes (%) (Auto) 3 % (0-9) Eosinophils (%) (Auto) 0 % (0-3) Basophils (%) (Auto) 0 % (0-3) Neutrophils # (Auto) 21.7 x10^3/uL (1.8-7.7) Lymphocytes # (Auto) 0.9 x10^3/uL (1.0-4.8) Monocytes # (Auto) 0.7 x10^3/uL (0.0-1.1) Eosinophils # (Auto) 0.0 x10^3/uL (0.0-0.7) Basophils # (Auto) 0.1 x10^3/uL (0.0-0.2) Platelet Estimate Decreased (ADEQUATE) Sodium Level 134 mmol/L (136-145) Potassium Level 3.7 mmol/L (3.5-5.1) Chloride Level 97 mmol/L (98-107) Carbon Dioxide Level 27 mmol/L (21-32) Anion Gap 10 (6-14) Blood Urea Nitrogen 34 mg/dL (7-20) Creatinine 1.3 mg/dL (0.6-1.0) Estimated GFR (Cockcroft-Gault) 43.7 Glucose Level 105 mg/dL (70-99) Calcium Level 6.9 mg/dL (8.5-10.1) O2 Saturation 95 % (92-99) Arterial Blood pH 7.50 (7.35-7.45) Arterial Blood pH (Temp corrected) 7.47 Arterial Blood pCO2 at Patient Temp 37 mmHg (35-46) Arterial Blood pCO2 (Temp correct) 40 mmHg Arterial Blood pO2 at Patient Temp 71 mmHg (75-108) Arterial Blood pO2 (Temp corrected) 79 mmHg Arterial Blood HCO3 28 mmol/L (21-28) Arterial Blood Base Excess 5 mmol/L (-3-3) FiO2 40/vent Assessment and Plan Assessmemt and Plan Problems Medical Problems: (1) Ileus Status: Acute (2) Person under investigation for COVID-19 Status: Acute (3) Pneumonia Status: Acute (4) Sepsis Status: Acute (5) Severe sepsis Status: Acute (6) UTI (urinary tract infection) Status: Acute Comment Review of Relevant I have reviewed the following items shena (where applicable) has been applied. Medications: Current Medications Medications (Trade) Dose Ordered Sig/Bradley Route PRN Reason Start Time Stop Time Status Last Admin Dose Admin Levofloxacin/ Dextrose 150 ml @ 100 mls/hr Q48H IV 06/17/20 14:00 06/17/20 18:30 DC 06/17/20 14:57 Sodium Bicarbonate 150 meq/Dextrose 1,150 ml @ 75 mls/hr [id number] IV 06/18/20 02:30 06/18/20 02:30 Meropenem 500 mg/ Sodium Chloride 50 ml @ 100 mls/hr Q8HRS IV 06/18/20 09:00 06/18/20 08:40 Justifications for Admission Other Justification JENNIFER BOYD MD Jun 18, 2020 11:08
--- NOTE | 2020-06-18 11:49 | PDOC ---
CARDIO Progress Notes Date and Time Date of Service 06/12/2020 Time of Evaluation 1010 Subjective Subjective: Other (sedated) Vitals Vitals Vital Signs Date Time Temp Pulse Resp B/P (MAP) Pulse Ox O2 Delivery O2 Flow Rate FiO2 06/18/20 11:25 98 Ventilator 06/18/20 11:00 101.6 119 20 125/80 (95) 101.6 Weight Weight [ ] Input and Output Intake and Output Intake and Output 06/18/20 07:00 Intake Total 4150.67 ml Output Total 1620 ml Balance 2530.67 ml Intake IV Total 3314.67 ml Tube Feeding 736 ml Other 100 ml Output Urine Total 1320 ml Gastric Drainage Total 300 ml Laboratory Labs Laboratory Tests Test 06/17/20 12:18 06/18/20 05:45 06/18/20 05:48 06/18/20 08:00 Glucose (Fingerstick) 118 mg/dL (70-99) 111 mg/dL (70-99) White Blood Count 23.3 x10^3/uL (4.0-11.0) Red Blood Count 3.71 x10^6/uL (3.50-5.40) Hemoglobin 10.7 g/dL (12.0-15.5) Hematocrit 33.3 % (36.0-47.0) Mean Corpuscular Volume 90 fL (79-100) Mean Corpuscular Hemoglobin 29 pg (25-35) Mean Corpuscular Hemoglobin Concent 32 g/dL (31-37) Red Cell Distribution Width 17.3 % (11.5-14.5) Platelet Count 38 x10^3/uL (140-400) Neutrophils (%) (Auto) 93 % (31-73) Lymphocytes (%) (Auto) 4 % (24-48) Monocytes (%) (Auto) 3 % (0-9) Eosinophils (%) (Auto) 0 % (0-3) Basophils (%) (Auto) 0 % (0-3) Neutrophils # (Auto) 21.7 x10^3/uL (1.8-7.7) Lymphocytes # (Auto) 0.9 x10^3/uL (1.0-4.8) Monocytes # (Auto) 0.7 x10^3/uL (0.0-1.1) Eosinophils # (Auto) 0.0 x10^3/uL (0.0-0.7) Basophils # (Auto) 0.1 x10^3/uL (0.0-0.2) Platelet Estimate Decreased (ADEQUATE) Sodium Level 134 mmol/L (136-145) Potassium Level 3.7 mmol/L (3.5-5.1) Chloride Level 97 mmol/L (98-107) Carbon Dioxide Level 27 mmol/L (21-32) Anion Gap 10 (6-14) Blood Urea Nitrogen 34 mg/dL (7-20) Creatinine 1.3 mg/dL (0.6-1.0) Estimated GFR (Cockcroft-Gault) 43.7 Glucose Level 105 mg/dL (70-99) Calcium Level 6.9 mg/dL (8.5-10.1) O2 Saturation 95 % (92-99) Arterial Blood pH 7.50 (7.35-7.45) Arterial Blood pH (Temp corrected) 7.47 Arterial Blood pCO2 at Patient Temp 37 mmHg (35-46) Arterial Blood pCO2 (Temp correct) 40 mmHg Arterial Blood pO2 at Patient Temp 71 mmHg (75-108) Arterial Blood pO2 (Temp corrected) 79 mmHg Arterial Blood HCO3 28 mmol/L (21-28) Arterial Blood Base Excess 5 mmol/L (-3-3) FiO2 40/vent Microbiology Micro Microbiology 06/15/20 Urine Culture - Final, Complete 06/15/20 Antimicrobic Susceptibility - Final, Complete 06/15/20 Blood Culture - Final, Complete Review of Systems Constitutional: yes: other (UNABLE TO OBTAIN) Physical Exam Chest: Symmetric LUNGS: Other (diminished, intubated/vent) Heart: RRR (SR/ST) Abdomen: Other (Anasarca) Extremities: Other (body edema; purupura) Neurology: other (SEDATED) Assessment Assessment 1. Acute respiratory failure; multifactorial; s/p intubation 2. Acute on chronic systolic CHF 3. Severe NICM; LVEF 10-15 per echo 03/11. s/p AICD ([facility]). Follows with Dr. Wilde of heart failure clinic. Previously received [place] [facility] hospice services however due to breaking narcotic contract she lost services thru agency 4. Combine septic, cardiogenic shock. Requiring pressor support 5. Septic shock with UTI and bacteremia: BC with strep and Ecoli with UTI. Persistent fever. 6. H/o LV thrombus noncompliant with OAC, Eliquis 7. H/o CVA: negative for new stroke 8. Coagulopathy, thrombocytopenia with h/o cirrhosis 9. Transaminitis 10. LARISSA on CKD 11. Gluteal abscess 12. Substance abuse; long-standing h/o meth use. UDS + amphetamines 13. PUI; COVID PCR negative 13. Generalized purpura: no DIC. Recommendations Continue pressor support, Milrinone ongoing Very poor prognosis with multiorgan failure. Possibly treatment withdrawal, awaiting family meeting particularly with DPOA (daughter and sister). Now DNR Ongoing antibiotic therapy. Follow cultures. Supportive care Awaiting family decision if care withdrawal then will switch off AICD Justicifation of Admission Dx: Justifications for Admission: Justification of Admission Dx: Yes [facility] Jun 18, 2020 11:49
--- NOTE | 2020-06-18 12:21 | PDOC ---
Renal-Progress Notes Subjective Notes Notes STILL ON THE VENT History of Present Illness Hx of present illness NO ACUTE CHANGES Vitals Vitals Vital Signs Date Time Temp Pulse Resp B/P (MAP) Pulse Ox O2 Delivery O2 Flow Rate FiO2 06/18/20 11:25 98 Ventilator 06/18/20 11:00 101.6 119 20 125/80 (95) 101.6 Weight Weight [ ] I.O. Intake and Output Intake and Output 06/18/20 07:00 Intake Total 4150.67 ml Output Total 1620 ml Balance 2530.67 ml Intake IV Total 3314.67 ml Tube Feeding 736 ml Other 100 ml Output Urine Total 1320 ml Gastric Drainage Total 300 ml Labs Labs Laboratory Tests Test 06/18/20 05:45 06/18/20 05:48 06/18/20 08:00 White Blood Count 23.3 x10^3/uL (4.0-11.0) Red Blood Count 3.71 x10^6/uL (3.50-5.40) Hemoglobin 10.7 g/dL (12.0-15.5) Hematocrit 33.3 % (36.0-47.0) Mean Corpuscular Volume 90 fL (79-100) Mean Corpuscular Hemoglobin 29 pg (25-35) Mean Corpuscular Hemoglobin Concent 32 g/dL (31-37) Red Cell Distribution Width 17.3 % (11.5-14.5) Platelet Count 38 x10^3/uL (140-400) Neutrophils (%) (Auto) 93 % (31-73) Lymphocytes (%) (Auto) 4 % (24-48) Monocytes (%) (Auto) 3 % (0-9) Eosinophils (%) (Auto) 0 % (0-3) Basophils (%) (Auto) 0 % (0-3) Neutrophils # (Auto) 21.7 x10^3/uL (1.8-7.7) Lymphocytes # (Auto) 0.9 x10^3/uL (1.0-4.8) Monocytes # (Auto) 0.7 x10^3/uL (0.0-1.1) Eosinophils # (Auto) 0.0 x10^3/uL (0.0-0.7) Basophils # (Auto) 0.1 x10^3/uL (0.0-0.2) Platelet Estimate Decreased (ADEQUATE) Sodium Level 134 mmol/L (136-145) Potassium Level 3.7 mmol/L (3.5-5.1) Chloride Level 97 mmol/L (98-107) Carbon Dioxide Level 27 mmol/L (21-32) Anion Gap 10 (6-14) Blood Urea Nitrogen 34 mg/dL (7-20) Creatinine 1.3 mg/dL (0.6-1.0) Estimated GFR (Cockcroft-Gault) 43.7 Glucose Level 105 mg/dL (70-99) Calcium Level 6.9 mg/dL (8.5-10.1) Glucose (Fingerstick) 111 mg/dL (70-99) O2 Saturation 95 % (92-99) Arterial Blood pH 7.50 (7.35-7.45) Arterial Blood pH (Temp corrected) 7.47 Arterial Blood pCO2 at Patient Temp 37 mmHg (35-46) Arterial Blood pCO2 (Temp correct) 40 mmHg Arterial Blood pO2 at Patient Temp 71 mmHg (75-108) Arterial Blood pO2 (Temp corrected) 79 mmHg Arterial Blood HCO3 28 mmol/L (21-28) Arterial Blood Base Excess 5 mmol/L (-3-3) FiO2 40/vent Micro Micro Microbiology 06/15/20 Urine Culture - Final, Complete 06/15/20 Antimicrobic Susceptibility - Final, Complete 06/15/20 Blood Culture - Final, Complete Review of Systems Constitutional: yes: other (UNABLE TO OBTAIN) Physical Exam General Appearance: no apparent distress, other (ON THE VENT) Skin: erythema, other (DIFFUSE ERYTHEMA WITH BLISTERS DRAINING) Respiratory: decreased breath sounds Heart: S1S2 Abdomen: soft, other (HYPOACTIVE) Genitourinary: coles catheter Extremities: edema Neurology: other (SEDATED) Assessment Assessment IMP LARISSA IMPROVED WITH CR OF 1.3 MET ACIDOSIS ACUTE RESP FAILURE POLYSUBSTANCE DRUG USE SEPTIC SHOCK LEUCOCYTOSIS CM WITH EF OF 10-15% HX OF LV THROMBUS SKIN LESION-?SKIN BLISTERS-INFECTION PLAN VERY POOR PROGNOSIS OVERALL ANTIBIOTICS PRESSORS AND INOTROPES CARDIOLOGY EVALUATION LOW FLOW VOLUME EXPANSION STOP HCO3 GTT UNLIKELY TO TOLERATE TOO MUCH VOLUME D/W DR OAKLEY AND DR ROME REMAINS CRITICALLY ILL CCT 30 REYNA OHARA MD Jun 18, 2020 12:21
[2020-06-18] MEDS ORDERED: IV NORMAL SALINE 1000ML BAG 1,000 ML IV SCH (13:00)
--- NOTE | 2020-06-18 16:41 | NUR ---
Patient family discussed goals of care with Dr. Resendiz, explained poor outcomes, family agreed to withdraw care. Patient extubated at 1605, at 1626 with family at bedside. Patient's sister Fer Hartman is primary contact for home, phone number [phone]. Fer took home belongings.
--- NOTE | 2020-06-20 16:36 | PDOC3 ---
[facility]-Discharge Summary Date of Admission: Date of Admission: Jun 15, 2020 Date of Discharge: Date of Discharge: Jun 18, 2020 Admission Diagnosis: Admitting Diagnosis: SUMMARY Discharge Diagnosis: Discharge Diagnosis: Acute respiratory failure with hypercapnia and hypoxia - likely related to sepsis possibly from likely gram negative pneumonia. Will cont vent support, consult pulm. Wean as tolerated Septic shock - not responsive to fluid bolus, initiated on pressors. We will continue with milrinone and Levophed to maintain maps greater than 60. We will continue with daptomycin, Levaquin, and meropenem per ID LARISSA - likely vasomotor nephropathy - no renal disease per family, normal Cr 4 years ago here. Given weight based bolus of normal saline, but with h/o CHF with unknown EF currently will be judicious about fluids Metabolic acidosis - due to lactic acidosis likely from septic shock and hypoxemia. Will monitor Cirrhosis with Transaminitis - possibly some mild shock liver with sepsis. Does have h/o cirrhosis, details are unknown. We will repeat LFTs tomorrow H/o CVA (left-sided residual deficits), chronic back pain, HTN Systolic CHF s/p AICD placement - unknown EF - on metoprolol Bumex 2 mg twice daily Eliquis Aldactone ASA. Has [facility] f/u outpatient Amphetamine positive UDS - with concerning needles burt in multiple locations. Apparently she was revoked from hospice due to breaking her narcotic contract Gluteal abscess - will continue vancomycin, wound care, ID consult Chronic pain - on methadone outpatient apparently Purpura fulminans concerning for DIC versus [facility] Group A Strepococci bacteremia Pyelnephritis E Coli Hospital Course: Hospital Course: Discussed goals of care with family, explained poor outcomes, family agreed to withdraw care. Patient extubated at 1605, at 1626 with family at bedside. 06/18/2020 No major events overnight. Please see nurses note for details regarding CODE STATUS and withdraw care plan for the patient. Pending medical DPOA. Patient continues a fever 102 F. Planning for withdraw care today. Pending family meeting. Patient's chart, labs, images were reviewed and discussed with RN 06/17/2020 No acute events overnight. Patient is on a cooling blanket with max temperature currently is 99.0, T-max overnight is 102 F.. Patient is currently on vent settings of 20/450/40/5. Patient's chart, labs, images were reviewed and discussed with RN 06/16/2020 No acute events overnight. Fever 102.7. Will stop vasopressin and attempt to wean Levophed. Map goals of 60. Pending cardiology, nephrology, pulmonology recommendations. We will continue to observe mottling of the skin.> 50% time spent in patient chart, labs, and imaging review and in discussion with RN and FÁTIMA 49 year old female w/ PMHx CVA (left-sided residual deficits), chronic back pain, HTN, systolic CHF s/p AICD placement, cirrhosis who presents via private vehicle with her daughter with 2 days of mottling to bilateral knees, upper and inner thigh as well as nausea and vomiting, fatigue, and lethargy redness. She was also noted with rash on her abdomen and under right breast. She rated her pain 10 out of 10, was in significant respiratory distress while initial ED H&P was being taken. Patient told ED she lives with one of her daughters, but not the daughter who brought her here. She also noted that a year ago she was on hospice for her CHF but after AICD placement and improved and has since been off hospice. She follows with [facility]. Chest radiograph with bilateral opacities and left-sided AICD noted. CT abdomen with dilatation of the colon, diffuse edema to the soft tissues, cardiomegaly and at the lung bases there is patchy opacity seen. EKG sinus tachycardia with incomplete left bundle branch block right axis deviation Initial vital signs temperature 97.5 F heart rate 122 bpm blood pressure 90/64 respiratory rate 27. She continued to tire out throughout interview and had worsening confusion. An ABG was performed showing pH 7.15 PCO2 55 and PaO2 of 64 due to her progressive respiratory distress decision to intubate after informed consent from patient and daughter. Right femoral central line placed emergently. WBC 11.2, Hb 14.9, platelets 203, NA 135, K3.7, BUN 36, CR 1.3, glucose 60 bilirubin 4.4, AST 220, ALT 131, alk phos 412, albumin 2, lipase 14, troponin 0, rapid COVID-19 negative, urinalysis with moderate blood. Admitted to ICU for further care. Disposition: Disposition/Orders: Activity: Activity: Resume previous activity Medications: Home Meds Reported Medications Hydrocodone Bit/Acetaminophen (HYDROCODONE-APAP 10-325 ) 1 Each Tablet, 3 TAB PO Q3-4HRS PRN for PAIN, #60 TAB 02/07/14 Alprazolam (ALPRAZOLAM) 1 Mg Tablet, 1 TAB PO BID for ANXIETY / AGITATION, #60 TAB 02/07/14 Methadone Hcl (METHADONE HCL) 10 Mg Tablet, 10 MG PO PRN PRN for PAIN, TAB 02/07/14 Atorvastatin Calcium (LIPITOR) 40 Mg Tablet, 1 TAB PO QHS, #90 TAB 1 Refill 02/06/14 Scheduled Alprazolam (Alprazolam), 1 TAB PO BID, (Reported) Atorvastatin Calcium (Lipitor), 1 TAB PO QHS, (Reported) Scheduled PRN Hydrocodone Bit/Acetaminophen (Hydrocodone-Apap 10-325 ), 3 TAB PO Q3-4HRS PRN for PAIN, (Reported) Methadone Hcl (Methadone Hcl), 10 MG PO PRN PRN for PAIN, (Reported) Total Time: Total Time: Total time spent was 75 minutes in this summary. Patient seen and examined on day of Justicifation of Admission Dx: Justifications for Admission: Justification of Admission Dx: Yes JENNIFER BOYD MD Jun 20, 2020 16:35
== END 2020-06-18 16:26 | DRG 871 ==
LOC: ER 11:00 → 1 WEST ICU 14:56
PROVIDERS: ADMIT Internal Medicine; ATTEND Internal Medicine
PROC: 5A1945Z Respiratory Ventilation, 24-96 Consecutive Hours (ICD-10-PCS; principal; 2020-06-15)
PROC: 0BH17EZ Insertion of Endotracheal Airway into Trachea, Via Natural or Artificial Opening (ICD-10-PCS; 2020-06-15)
DX: A40.0 Sepsis due to streptococcus, group A (principal); J96.01 Acute respiratory failure with hypoxia; E43 Unspecified severe protein-calorie malnutrition; I50.43 Acute on chronic combined systolic (congestive) and diastolic (congestive) heart failure; R65.21 Severe sepsis with septic shock; J18.9 Pneumonia, unspecified organism; J96.02 Acute respiratory failure with hypercapnia; K56.7 Ileus, unspecified; J44.0 Chronic obstructive pulmonary disease with (acute) lower respiratory infection; D68.9 Coagulation defect, unspecified; I13.0 Hypertensive heart and chronic kidney disease with heart failure and stage 1 through stage 4 chronic kidney disease, or unspecified chronic kidney disease; I31.3 Pericardial effusion (noninflammatory); L02.31 Cutaneous abscess of buttock; N17.9 Acute kidney failure, unspecified; N39.0 Urinary tract infection, site not specified; Z20.822 Contact with and (suspected) exposure to COVID-19; Z88.0 Allergy status to penicillin; I25.2 Old myocardial infarction; Z90.710 Acquired absence of both cervix and uterus; Z98.891 History of uterine scar from previous surgery; G89.29 Other chronic pain; Z79.891 Long term (current) use of opiate analgesic; Z79.82 Long term (current) use of aspirin; Z86.73 Personal history of transient ischemic attack (TIA), and cerebral infarction without residual deficits; Z90.49 Acquired absence of other specified parts of digestive tract; Z91.14 Patient's other noncompliance with medication regimen; Z91.19 Patient's noncompliance with other medical treatment and regimen; Z83.3 Family history of diabetes mellitus; Z95.810 Presence of automatic (implantable) cardiac defibrillator; Z82.49 Family history of ischemic heart disease and other diseases of the circulatory system; Z79.01 Long term (current) use of anticoagulants; B96.20 Unspecified Escherichia coli [E. coli] as the cause of diseases classified elsewhere; R74.01 Elevation of levels of liver transaminase levels; R57.0 Cardiogenic shock; D69.2 Other nonthrombocytopenic purpura; D69.6 Thrombocytopenia, unspecified; E78.5 Hyperlipidemia, unspecified; F17.210 Nicotine dependence, cigarettes, uncomplicated; K74.60 Unspecified cirrhosis of liver; N18.9 Chronic kidney disease, unspecified; Z66 Do not resuscitate; E66.9 Obesity, unspecified; F15.90 Other stimulant use, unspecified, uncomplicated; F32.9 Major depressive disorder, single episode, unspecified; F41.9 Anxiety disorder, unspecified; R79.89 Other specified abnormal findings of blood chemistry; F19.10 Other psychoactive substance abuse, uncomplicated; Z68.30 Body mass index [BMI] 30.0-30.9, adult
CPT/HCPCS: 31500; 36415; 36556; 36600; 70450; 71045; 74176; 80048; 80053; 80307; 81001; 82140; 82805; 82962; 83605; 83690; 83735; 84100; 84145; 84484; 85007; 85025; 85049; 85379; 85384; 85610; 85730; 87040; 87077; 87086; 87186; 87205; 87426; 93005; 94002; 94003; 96365; 96366; 96367; 96368; 96375; 96376; J0330; J0878; J1250; J1650; J1956; J2185; J2250; J2260; J2370; J2405; J3010; J3370; J3490; J7030; J7040; J7050; J7060; P9045; U0003; 99291-25; G0378